=== PATIENT | female | born 1955 | race Caucasian/White ===

== ENCOUNTER 2022-04-01 10:45 | Emergency (ER) | payer MEDICARE, MEDICAID, SELFPAY ==
--- NOTE | 2022-04-01 10:56 | ED.GENADULT ---
HPI - General Adult General Chief complaint: Epistaxis Stated complaint: nose bleed Time Seen by Provider: 04/01/22 10:56 Source: patient and EMS Mode of arrival: EMS Limitations: no limitations History of Present Illness HPI narrative: Patient is a 66 year old female presenting to the emergency department today with a bloody nose. Patient states that she began to have a bloody nose out of nowhere this morning. Patient states that she has been getting them off and on for the last few months. Patient states that she does sleep with an AC unit in her bedroom and no humidifier. Patient states that she only health problems she has is kidney stones for which she follows with Dr. Tavarez. Patient denies any dizziness, lightheadedness, abdominal pain, nausea, vomiting, fever, chills, blurry vision, double vision, loss of vision, chest pain, difficulty breathing, shortness of breath, back pain, night sweats, pain with urination, increased urinary frequency, increased urinary urgency, blood in her urine or stool, syncope or a near syncopal episode, recent trauma or falls, bowel incontinence, bladder incontinence, bowel retention, bladder retention, or any other complaints at this time. Onset (ago): hour(s) Severity: mild Severity scale (1-10): 4 Quality: dull Pain Consistency: constant Relieving factors: none Exacerbating factors: none Associated symptoms: denies other symptoms Treatments prior to arrival: none Related Data Previous Rx's Medication Instructions Recorded amoxicillin 875 mg-potassium 1 tab PO BID 7 days #14 tabs 04/01/22 clavulanate 125 mg tablet lisinopril 5 mg tablet 5 mg PO BID 30 days #60 tabs 04/01/22 Allergies Allergy/AdvReac Type Severity Reaction Status Date / Time No Known Allergies Allergy Verified 04/01/22 10:59 Review of Systems Constitutional: Constitutional: Reports no additional constitutional complaints, Denies chills, Denies fever(s) and Denies night sweats Eyes: Eyes: Reports no additional eye complaints, Denies blurry vision, Denies change in vision, Denies diplopia, Denies eye discharge, Denies loss of vision and Denies eye pain ENT: Denies dizziness and Reports epistaxis Cardiovascular: Cardiovascular: Reports no additional cardiovascular complaints, Denies chest pain, Denies lightheadedness, Denies Loss of Consciousness and Denies dyspnea Respiratory: Respiratory: Reports no additional respiratory complaints and Denies dyspnea Gastrointestinal: Gastrointestinal: Reports no additional gastrointestinal complaints, Denies abdominal pain, Denies melena, Denies hematochezia, Denies change in bowel habits and Denies change in stool character Genitourinary: Genitourinary: Denies hematuria, Denies urinary frequency, Denies dysuria, Denies urinary incontinence, Denies urinary hesitancy and Denies urinary urgency Musculoskeletal: Musculoskeletal: Reports no additional musculoskeletal complaints, Denies numbness and Denies tingling Neurologic: Denies dizziness, Denies loss of vision, Denies numbness and Denies tingling Psychiatric: Psychiatric: Reports no additional psychiatric complaints Endocrine: Endocrine: Reports no additional endocrine complaints Hematologic/Lymphatic: Hematologic/Lymphatic: Reports no additional hematologic/lymphatic complaints Allergic/Immunologic: Allergic/Immunologic: Reports no additional allergic/immunologic complaints PMFSH Past Medical History Attestation statement: The following information was validated with the patient. Source: old records reviewed Social History Social History Alcohol intake: never Patient Tobacco Use Status: Never used Tobacco Use of substances other than those prescribed or required for medical reasons: No Advance Directives: No Advance Directives Information Provided: No Physical Exam ED Vital Signs: Vital Signs - 24 hr 04/01/22 10:57 04/01/22 12:59 04/01/22 15:12 Temperature 97.0 F Pulse Rate 76 74 73 Respiratory Rate 16 18 16 Blood Pressure 175/90 H 187/96 H 180/96 H Pulse Oximetry 96 98 98 Oxygen Delivery Method Room Air Room Air Room Air BMI result Body Mass Index 25.8 Const General: cooperative, no acute distress, alert and awake Nutritional Appearance: well nourished Orientation/consciousness: patient oriented x3 Limitations: no limitations HENMT Head: Yes normal to inspection and Yes atraumatic Ears: hearing grossly normal bilaterally and external ears normal General nose exam: Normal external nose present, no nasal discharge noted and Epistaxis present Face and sinus: Yes normal facial exam, No abrasion and No laceration Mouth: Normal oral and palatal mucosa present, no drooling and no muffled voice Eyes General: appearance normal, both eyes and all related structures Periorbital: periorbital findings normal Eyelids: Yes eyelids normal Conjunctivae: conjunctivae normal Pupils: Equal, round and reactive pupils present EOM: EOMs intact bilaterally Neck Neck: Yes normal visual inspection, Yes full ROM and Yes no lymphadenopathy Chest Chest palpation & inspection: normal inspection of the chest Resp Effort & Inspection: normal respiratory effort and able to speak in complete sentences Auscultation: clear to auscultation bilaterally Cardio Rate: regular rate Rhythm: regular rhythm GI Inspection: Yes normal to inspection Neuro General: patient oriented x3 and moves all extremities Cranial nerves: Yes Equal, round and reactive pupils present Cognition (Neuro): normal cognition Motor exam (neuro): 5/5 motor strength present throughout Sensory Exam: Normal double simultaneous stimulation for sensation Coordination: [id number] test normal Extrem General: Yes normal to inspection, Yes full ROM and Yes capillary refill normal Psych Appearance: grossly normal Mental Status: mental status grossly normal Affect: normal affect Attitude: cooperative Thought process: Normal thought process present Thought content: Normal thought content present Insight: Good insight present (Psych) Medical Decision Making MDM Narrative Medical decision making narrative: Patient is a 66 year old female presenting to the emergency department today with a nose bleed. Patient's physical exam showed a right anterior nostril bleed. I explained my physical exam findings to the patient. I answered all questions asked by the patient. I first attempted to stop the patient's epistaxis with cocaine and TXA soaked cotton balls and flonase however, it did not stop bleeding. I then packed the patient's right nostril with a rhino rocket soaked in TXA and cocaine. That was able to stop the patient's bleeding. I gave the patient strict instructions to have the packing removed in 3 days. Patient's blood pressure was elevated throughout her stay in the department. I gave her 10mg of Lisinopril and strct instructions to follow up with her PCP about her elevated blood pressure. Patient continued to deny any dizziness, headache, blurry vision, double vision, or any other hypertensive complaints. I stressed the importance of the patient taking her medication as prescribed. I stressed the importance of the patient following up with her primary care provider. I stressed the importance of the patient returning to the emergency department immediately if her symptoms were to worsen or if she were to develop any dizziness, shortness of breath, difficulty breathing, chest pain, blurry vision, loss of vision, nausea, vomiting, abdominal pain, fever, chills, back pain, or any other complaints. Patient verbalized agreement and understanding with this treatment plan and discharge. Differential Diagnosis Differential Diagnosis: epistaxis, HTN Medical Records Medical records reviewed: Yes I reviewed the patient's medical records. Discharge Plan Discharge Clinical Impression: Epistaxis, HTN (hypertension) Patient Disposition: Home, Self-Care Instructions: Nosebleed (ED), Hypertension (ED) Additional Instructions: Return to the ED in 3 days to have the packing removed. Follow up with your primary care provider. Return to the emergency department immediately if your symptoms worsen or if you develop any dizziness, shortness of breath, difficulty breathing, chest pain, blurry vision, loss of vision, nausea, vomiting, abdominal pain, fever, chills, back pain, or any other complaints. Prescriptions: New lisinopril 5 mg tablet 5 mg PO BID 30 Days Qty: 60 0RF amoxicillin-pot clavulanate 875-125 mg tablet 1 tab PO BID 7 Days Qty: 14 0RF Referrals: [facility] [Provider Group] (Call to establish and follow up with a primary care provider. If you already have a primary care provider, please follow up with them. ) [facility], [place] [Provider Group] (Call to establish and follow up with a primary care provider. If you already have a primary care provider, please follow up with them. ) [facility] (Call to establish and follow up with a primary care provider. If you already have a primary care provider, please follow up with them. ) [facility] [Physician] - (Call to establish and follow up with a primary care provider. If you already have a primary care provider, please follow up with them. ) Interventions: ED Discharge Assessment Last Done: 04/01/22 15:34 Discharge Date/Time: 04/01/22 15:34 Print Language: [place]arag[place]
[2022-04-01 10:57] VITALS: BP 175/90; PULSE 76; RESP 16; TEMP 36.1; O2SAT 96; BMI 25.8
[2022-04-01] MEDS: Oxymetazoline HCl 0.05 % Nasal 15 ML SPRAY 2 SPRAY NOSTRIL-B (12:03)
[2022-04-01] MEDS: Tranexamic Acid 1,000 MG/10 ML VIAL 500 MG INTRANASAL (12:03)
[2022-04-01] MEDS: Cocaine HCl 4 % 4 ML SOLUTION TOPICAL (12:03)
[2022-04-01 12:59] VITALS: BP 187/96; PULSE 74; RESP 18; O2SAT 98
[2022-04-01] MEDS: lisinopriL 10 MG TABLET PO (13:14)
[2022-04-01] MEDS: LORazepam 1 MG TABLET 2 MG PO (14:12)
[2022-04-01 15:12] VITALS: BP 180/96; PULSE 73; RESP 16; O2SAT 98
== END 2022-04-01 15:34 | disposition home or self-care (01) ==
PROVIDERS: Emergency Provider Emergency Medicine
DX: R04.0 Epistaxis (principal); I10 Essential (primary) hypertension; Z79.899 Other long term (current) drug therapy
CPT/HCPCS: 30901; 99284; C9046

== ENCOUNTER 2022-04-04 12:55 | Inpatient (IN) | payer MEDICARE, MEDICAID, SELFPAY ==
--- NOTE | ~2022-04-04 | CT_ITS ---
EXAMINATION: CT ABDOMEN AND PELVIS WITHOUT CONTRAST CLINICAL INFORMATION: IVONE, history of kidney stone. COMPARISON: Renal ultrasound dated 03/24/2019, CT scan of the abdomen and pelvis dated 09/17/2016. TECHNIQUE: Multidetector volumetric imaging was performed from the superior aspect of the liver through the pubic symphysis. Sagittal and coronal reformatted images were obtained on the technologist's workstation. This CT examination was performed using dose optimization techniques as appropriate, variously including the following: *Automated exposure control *Adjustment of mA and/or kV according to patient size (this includes techniques or standardized protocols for targeted exams where dose is matched to indication/reason for exam; i.e. extremities or head) *Use of iterative reconstruction technique DLP: 769 mGy-cm FINDINGS: LUNG BASES: The visualized lung bases are unremarkable. LIVER, GALLBLADDER, AND BILIARY TREE: Diffuse decreased hepatic attenuation. Gallbladder appears absent. No biliary ductal dilatation. PANCREAS: Unremarkable. SPLEEN: Unremarkable. ADRENAL GLANDS: Unremarkable. KIDNEYS AND URETERS: Right: Severe right pelvocaliectasis with significant cortical thinning. Stenosis is noted at the right ureteropelvic junction. The right ureter is decompressed without abnormality. No nephrolithiasis. Left: Left renal cortical regularity without significant change. Small calculi in the upper pole. No hydroureteronephrosis. A mildly heterogeneous nodule is seen laterally in the upper pole measuring 1.6 cm without significant change (image 54, series 5). BLADDER: Unremarkable. GASTROINTESTINAL TRACT: The stomach and small bowel unremarkable. The colon and rectum are unremarkable. ABDOMINAL WALL: No significant hernia is appreciated. LYMPH NODES: No lymphadenopathy. VASCULAR: Unremarkable. PELVIC VISCERA: Unremarkable. OSSEOUS STRUCTURES: L5-S1 mild degenerative disc disease and bilateral facet arthropathy. No suspicious abnormality. CT/CT abdomen pelvis wo con IMPRESSION: 1. Severe right pelvocaliectasis, likely secondary to significant right ureteral pelvic junction stenosis. No nephrolithiasis. This represents significant worsening from the previous studies. 2. Nonobstructing left intrarenal calculi. Left upper pole renal lesion is similar dimensions to the 2019 ultrasound study and is most consistent with an angiomyolipoma. 3. Hepatic steatosis.
[2022-04-04 12:58] VITALS: BP 189/96; PULSE 84; RESP 16; TEMP 36.6; O2SAT 96; BMI 25.8
--- NOTE | 2022-04-04 13:39 | ED.RECABL ---
HPI - Recheck/Abnormal Lab/Rx General Chief Complaint: General Medical Stated Complaint: Remove packing from nose Time Seen by Provider: 04/04/22 13:30 Source: patient Mode of arrival: ambulatory Limitations: no limitations History of Present Illness HPI narrative: 66-year-old female with a past medical history of kidney stones, who was recently diagnosed with high blood pressure on 04/01/22 currently on lisinopril taking as prescribed who was seen here on 04/01/2022 for epistaxis with nasal packing rhino rocket presenting to the ED for nasal packing rhino rocket removal. She reports that she has not had any bleeding since she was discharged here. She denies any new complaints or concerns at this time. Related Data Previous Rx's Medication Instructions Recorded amoxicillin 875 mg-potassium 1 tab PO BID 7 days #14 tabs 04/01/22 clavulanate 125 mg tablet lisinopril 5 mg tablet 5 mg PO BID 30 days #60 tabs 04/01/22 Allergies Allergy/AdvReac Type Severity Reaction Status Date / Time No Known Allergies Allergy Verified 04/01/22 10:59 Review of Systems Review of Systems: Constitutional : No Fever, No Chills ENT/Mouth : No Ear Pain, No Nasal Congestion, positive resolved nose bleed Eyes: No Eye Pain, No Swelling, No Redness Cardiovascular : No Chest Pain, No SOB Respiratory : No Cough, No Sputum Gastrointestinal : No Nausea, No Vomiting, No Diarrhea Genitourinary : No Dysuria, No Hematuria Musculoskeletal : No joint pain, No Myalgias Skin : No Skin Lesions, No rash Neuro : No Weakness, No Numbness, No headache Psych : No Anxiety/Panic, No Depression Heme/Lymph: No Bleeding,No Lymphadenopathy Endocrine : No Polyuria, No Polydipsia Yes all other systems are reviewed and are negative [facility] Past Medical History Attestation statement: The following information was validated with the patient. Source: old records reviewed and nursing notes reviewed Surgical History H/O lithotripsy Social History Social History Alcohol intake: never Patient Tobacco Use Status: Never used Tobacco Advance Directives: No Advance Directives Information Provided: No Physical Exam Vital Signs: Vital Signs: Last Vital Signs Temp 98.2 F 04/04/22 16:56 Pulse 66 04/04/22 16:56 Resp 16 04/04/22 16:56 BP 194/82 H 04/04/22 16:56 Pulse Ox 96 04/04/22 16:56 O2 Del Method 04/04/22 16:56 BMI result Body Mass Index 25.8 vital signs have been reviewed as normal and appeared to be correct. Blood pressure 189/96. Heart rate normal. Respiration rate normal. Temperature normal. Oxygen saturation normal. Appearance: Alert. Oriented X3. No acute distress. Head: Normal external exam. Normocephalic. Atraumatic. Eyes: PERRLA. EOMI. Conjunctiva and sclera normal. Eyelids normal. ENT: When I examined the patient's rhino rocket I notice dry blood no active bleeding at this time or foreign bodies or lesions or ulcerations noted to the nares at this time. No blood noted to posterior pharynx. Soft and hard palate are within normal limits. Otherwise pharynx is normal. Uvula midline. Moist mucous membranes. No lesions/ulcerations or masses noted on the tongue. Normal voice. No trismus noted. No drooling noted. No muffled voice noted. Neck: Normal inspection. Neck supple. FROM. No adenopathy. Thyroid Normal. No tracheal deviation noted. No crepitus is noted. No meningeal signs. No neck mass noted. No signs of trauma noted. CVS: Normal heart rate and rhythm. Heart sound normal. Pulses normal throughout. No murmurs/rales/gallops. Respiratory: No respiratory distress. Painless inspiration. Breath sounds normal. No wheezes/rales/rhonchi noted. Chest nontender. No crepitus is noted. No signs of trauma noted. No accessory muscle usage noted or decreased air movement noted. No signs of trauma. Abdomen: Soft and nontender. Bowel sounds normal in all 4 quadrants. No distention noted. No organomegaly noted. No visible injury noted. Back: No CVA tenderness. Full range of motion noted. Nontender. Skin: Skin warm and dry. Normal skin color. Normal skin turgor. No rashes/lesions/lacerations noted. Extremities:Extremities exhibit normal range of motion and nontender. Neuro: Oriented X 3. No motor deficit. No sensory deficit. Reflexes normal. Normal steady gait. No focal neuro deficits noted. CN's II-XII intact bilaterally? Vascular: + radial pulses/+ 2 distal pedal pulses/+2 dorsalis pedis b/l. Normal cap refill. No cyanosis noted to upper extremity nails and lower extremity toes nails. Course Course Course Narrative: 14pm - 66-year-old female with a past medical history of kidney stones, who was recently diagnosed with high blood pressure on 04/01/22 currently on lisinopril taking as prescribed who was seen here on 04/01/2022 for epistaxis with nasal packing rhino rocket presenting to the ED for nasal packing rhino rocket removal. She reports that she has not had any bleeding since she was discharged here. I removed the rhino rocket and after approximately 5-10 minutes patient started to bleed profusely bright red blood from the right near. I in unable to localize where she is bleeding from therefore a new rhino rocket was placed. Bleeding is controlled at this time. Due to the amount of bleeding that the patient had will obtain labs to evaluate the patient being possibly anemic and her platelet count and re-evaluate. Reevaluation(s) Reevaluation #1: - labs reviewed and patient's hemoglobin and hematocrit along with platelet count are within normal limits. - sodium is 130. - Carbon dioxide 20. - BUN/creatinine 40/2.03 this is new for the patient. She has not gone to see a primary care provider in over 5-10 years or longer. She has not seen her urologist for kidney stones in over 5 years. The last labs we have in our [facility] system revealed a creatinine of 1.53 and BUN of 31 and this was in 2017. No other labs in our system and patient reports that these are the most recent labs due to she has not seen any providers in many years. - random glucose 522. She denies a history of diabetes. Her average glucose level is 321 and her hemoglobin A1c is 12.8. - AST/ALT 48/54. - acetone level negative. - will obtain a CT scan abdomen pelvis without IV contrast to evaluate the patient's kidneys although patient denies any abdominal pain or flank pain or back pain or urinary symptoms. - therefore at this time patient will receive 2 L of IV fluids Provide a 1000 mg of p.o. metformin and plan to admit for new diagnosis diabetes with IVONE. Patient understands agrees with this plan. Time: 14:40 Reevaluation #2: - CT scan abdomen pelvis without IV contrast revealed severe right pelvocaliectasis, likely secondary to significant right ureteral pelvic junction stenosis. No nephrolithiasis. This represents significant worsening from the previous studies. 2. Nonobstructing left intrarenal calculi. Left upper pole renal lesion is similar dimensions to the 2019 ultrasound study and is most consistent with an angiomyolipoma. 3. Hepatic steatosis. - therefore will consult with Dr. Tavarez regarding this. - Will admit to Dr. Mann's service at this time I just discussed this case with Dr. Mann. And he recommended providing at least 5-10 units of insulin will give 5 units to start with at this time. Time: 17:21 Reevaluation #3: - Dr. Tavarez reported that the imaging with the kidney stones is not the cause of the patient's IVONE. Time: 17:52 MDM - Recheck/Abnormal Lab/Rx Medical Records Attestation: I reviewed the patient's medical records. Lab Data Attestation: I reviewed the patient's lab results. Result diagrams: 04/04/22 14:01 04/04/22 14:01 Labs: Lab Results 04/04/22 04/04/22 04/04/22 Range/Units 14: 14: 14:01 WBC 10.6 (4.8-10.8) X10*3/uL RBC 4.55 (4.20-5.50) X10*6/uL Hgb 13.7 (12.0-16.0) g/dl Hct 40.3 (37.0-47.0) % MCV 88.6 (80.0-98.0) fL MCH 30.1 (27.0-33.0) pg MCHC 34.0 (31.0-35.0) g/dl RDW 13.0 (11.0-16.0) % Plt Count 237 (160-400) X10*3/uL MPV 11.8 (9.4-12.3) fL Immature Gran % (Auto) 0.6 H (0.0-0.4) % Neut % (Auto) 72.7 (45-73) % Lymph % (Auto) 16.2 L (20-40) % [place] % (Auto) 6.7 (2-11) % Eos % (Auto) 3.2 (0-4) % Baso % (Auto) 0.6 (0-2) % Lymph # (Auto) 1.7 (1.2-4.9) X10*3/uL [place] # (Auto) 0.7 (0.1-1.2) X10*3/uL Eos # (Auto) 0.3 (0.0-0.4) X10*3/uL Baso # (Auto) 0.1 (0.0-0.2) X10*3/uL Abs Immat Gran (auto) 0.06 H (0.00-0.03) X10*3/uL Absolute Neuts (auto) 7.8 (2.0-8.3) x10*3/uL Absolute Nucleated RBC 0.000 (0.0-0.012) X10*3/uL Nucleated RBC % (auto) 0.0 (0.0-0.2) /100WBC PT 11.7 (10.0-13.1) SEC INR 1.0 (0.9-1.1) Sodium 130 L (135-145) mmol/L Potassium 5.0 (3.3-5.1) mmol/L Chloride 99 (96-108) mmol/L Carbon Dioxide 20 L (22-29) mmol/L Anion Gap 16 (12-20) BUN 40 H (9-16) mg/dL Creatinine 2.03 H (0.5-1.4) mg/dL Estim Creat Clear Calc 27.8 Estimated GFR 25 Random Glucose 522 H* (60-115) mg/dL Estimat Average Glucose mg/dL Hemoglobin A1c % % Calcium 9.3 (8.4-10.2) mg/dL Magnesium 2.0 (1.6-2.6) mg/dL Total Bilirubin 0.6 (0.0-1.0) mg/dL AST 48 H (5-31) U/L ALT 54 H (0-31) U/L Alkaline Phosphatase 116 (39-117) U/L Lactate Dehydrogenase 188 (122-220) U/L Total Protein 7.5 (6.5-8.0) g/dL Albumin 4.0 (3.5-5.0) g/dL Urine Color Urine Appearance Urine pH (5.0-8.0) Ur Specific [place] (1.005-1.025) Urine Protein (NEG-TRACE) MG/DL Urine Glucose (UA) (NEG) MG/DL Urine Ketones (NEG) MG/DL Urine Blood (NEG) Urine Nitrite (NEG) Ur Leukocyte Esterase (NEG) Urine RBC (0) /HPF Urine WBC (0-4) /HPF Ur Squamous Epith Cells /LPF Urine Bacteria /LPF Acetone, Qual (Negative) COVID-19 (LETTY) (Negative) COVID-19 Clin Com 04/04/22 04/04/22 04/04/22 Range/Units 14:01 14:01 15:36 WBC (4.8-10.8) X10*3/uL RBC (4.20-5.50) X10*6/uL Hgb (12.0-16.0) g/dl Hct (37.0-47.0) % MCV (80.0-98.0) fL MCH (27.0-33.0) pg MCHC (31.0-35.0) g/dl RDW (11.0-16.0) % Plt Count (160-400) X10*3/uL MPV (9.4-12.3) fL Immature Gran % (Auto) (0.0-0.4) % Neut % (Auto) (45-73) % Lymph % (Auto) (20-40) % [place] % (Auto) (2-11) % Eos % (Auto) (0-4) % Baso % (Auto) (0-2) % Lymph # (Auto) (1.2-4.9) X10*3/uL [place] # (Auto) (0.1-1.2) X10*3/uL Eos # (Auto) (0.0-0.4) X10*3/uL Baso # (Auto) (0.0-0.2) X10*3/uL Abs Immat Gran (auto) (0.00-0.03) X10*3/uL Absolute Neuts (auto) (2.0-8.3) x10*3/uL Absolute Nucleated RBC (0.0-0.012) X10*3/uL Nucleated RBC % (auto) (0.0-0.2) /100WBC PT (10.0-13.1) SEC INR (0.9-1.1) Sodium (135-145) mmol/L Potassium (3.3-5.1) mmol/L Chloride (96-108) mmol/L Carbon Dioxide (22-29) mmol/L Anion Gap (12-20) BUN (9-16) mg/dL Creatinine (0.5-1.4) mg/dL Estim Creat Clear Calc Estimated GFR Random Glucose (60-115) mg/dL Estimat Average Glucose 321 mg/dL Hemoglobin A1c % 12.8 % Calcium (8.4-10.2) mg/dL Magnesium (1.6-2.6) mg/dL Total Bilirubin (0.0-1.0) mg/dL AST (5-31) U/L ALT (0-31) U/L Alkaline Phosphatase (39-117) U/L Lactate Dehydrogenase (122-220) U/L Total Protein (6.5-8.0) g/dL Albumin (3.5-5.0) g/dL Urine Color Urine Appearance Urine pH (5.0-8.0) Ur Specific [place] (1.005-1.025) Urine Protein (NEG-TRACE) MG/DL Urine Glucose (UA) (NEG) MG/DL Urine Ketones (NEG) MG/DL Urine Blood (NEG) Urine Nitrite (NEG) Ur Leukocyte Esterase (NEG) Urine RBC (0) /HPF Urine WBC (0-4) /HPF Ur Squamous Epith Cells /LPF Urine Bacteria /LPF Acetone, Qual Negative (Negative) COVID-19 (LETTY) Negative (Negative) COVID-19 Clin Com See Note 04/04/22 Range/Units 15:36 WBC (4.8-10.8) X10*3/uL RBC (4.20-5.50) X10*6/uL Hgb (12.0-16.0) g/dl Hct (37.0-47.0) % MCV (80.0-98.0) fL MCH (27.0-33.0) pg MCHC (31.0-35.0) g/dl RDW (11.0-16.0) % Plt Count (160-400) X10*3/uL MPV (9.4-12.3) fL Immature Gran % (Auto) (0.0-0.4) % Neut % (Auto) (45-73) % Lymph % (Auto) (20-40) % [place] % (Auto) (2-11) % Eos % (Auto) (0-4) % Baso % (Auto) (0-2) % Lymph # (Auto) (1.2-4.9) X10*3/uL [place] # (Auto) (0.1-1.2) X10*3/uL Eos # (Auto) (0.0-0.4) X10*3/uL Baso # (Auto) (0.0-0.2) X10*3/uL Abs Immat Gran (auto) (0.00-0.03) X10*3/uL Absolute Neuts (auto) (2.0-8.3) x10*3/uL Absolute Nucleated RBC (0.0-0.012) X10*3/uL Nucleated RBC % (auto) (0.0-0.2) /100WBC PT (10.0-13.1) SEC INR (0.9-1.1) Sodium (135-145) mmol/L Potassium (3.3-5.1) mmol/L Chloride (96-108) mmol/L Carbon Dioxide (22-29) mmol/L Anion Gap (12-20) BUN (9-16) mg/dL Creatinine (0.5-1.4) mg/dL Estim Creat Clear Calc Estimated GFR Random Glucose (60-115) mg/dL Estimat Average Glucose mg/dL Hemoglobin A1c % % Calcium (8.4-10.2) mg/dL Magnesium (1.6-2.6) mg/dL Total Bilirubin (0.0-1.0) mg/dL AST (5-31) U/L ALT (0-31) U/L Alkaline Phosphatase (39-117) U/L Lactate Dehydrogenase (122-220) U/L Total Protein (6.5-8.0) g/dL Albumin (3.5-5.0) g/dL Urine Color YELLOW Urine Appearance CLEAR Urine pH 6.0 (5.0-8.0) Ur Specific [place] 1.015 (1.005-1.025) Urine Protein NEG (NEG-TRACE) MG/DL Urine Glucose (UA) >=1000 H (NEG) MG/DL Urine Ketones NEG (NEG) MG/DL Urine Blood TRACE (NEG) Urine Nitrite NEG (NEG) Ur Leukocyte Esterase NEG (NEG) Urine RBC 0-2 (0) /HPF Urine WBC 1-4 (0-4) /HPF Ur Squamous Epith Cells TRACE /LPF Urine Bacteria TRACE /LPF Acetone, Qual (Negative) COVID-19 (LETTY) (Negative) COVID-[address] Clin Com Imaging Data CT scan abdomen pelvis without IV contrast: Attestation: I personally reviewed and interpreted this imaging study as follows: Radiologist's impression: FINDINGS: LUNG BASES: The visualized lung bases are unremarkable.? LIVER, GALLBLADDER, AND BILIARY TREE: Diffuse decreased hepatic attenuation. Gallbladder appears absent. No biliary ductal dilatation. PANCREAS: Unremarkable.? SPLEEN: Unremarkable.? ADRENAL GLANDS: Unremarkable.? KIDNEYS AND URETERS: Right: Severe right pelvocaliectasis with significant cortical thinning. Stenosis is noted at the right ureteropelvic junction. The right ureter is decompressed without abnormality. No nephrolithiasis. Left: Left renal cortical regularity without significant change. Small calculi in the upper pole. No hydroureteronephrosis. A mildly heterogeneous nodule is seen laterally in the upper pole measuring 1.6 cm without significant change (image 54, series 5). BLADDER: Unremarkable.? GASTROINTESTINAL TRACT: The stomach and small bowel unremarkable. The colon and rectum are unremarkable. ABDOMINAL WALL: No significant hernia is appreciated.? LYMPH NODES: No lymphadenopathy. VASCULAR: Unremarkable. PELVIC VISCERA: Unremarkable.? OSSEOUS STRUCTURES: L5-S1 mild degenerative disc disease and bilateral facet arthropathy. No suspicious abnormality. CT/CT abdomen pelvis wo con IMPRESSION: 1. Severe right pelvocaliectasis, likely secondary to significant right ureteral pelvic junction stenosis. No nephrolithiasis. This represents significant worsening from the previous studies. 2. Nonobstructing left intrarenal calculi. Left upper pole renal lesion is similar dimensions to the 2019 ultrasound study and is most consistent with an angiomyolipoma. 3. Hepatic steatosis. Critical Care Time Critical Care Time Critical Care Time: Yes Total Critical Care Time: 60 Attestation: I personally attest to this time spent taking care of the patient Discharge Plan Discharge Clinical Impression: Diabetes mellitus, new onset, Encounter for removal of nasal packing, Hypertension, IVONE (acute kidney injury), Kidney stones, Pelvicaliectasis, Epistaxis Patient Disposition: Admitted As Inpatient
[2022-04-04] MEDS: Silver Nitrate Applicator STICK..EA. 2 APPL TOPICAL (13:47)
[2022-04-04] MEDS: Oxymetazoline HCl 0.05 % Nasal 15 ML SPRAY 2 SPRAY NOSTRIL-B (13:47)
[2022-04-04 14:05] LABS: MANUAL DIFF FLAG NO
[2022-04-04 14:07] LABS: Basophils Absolute Auto 0.1 X10*3/uL (0.0-0.2); Basophils Percent Auto 0.6 % (0-2); Eosinophils Absolute Auto 0.3 X10*3/uL (0.0-0.4); Eosinophils Percent Auto 3.2 % (0-4); Hematocrit 40.3 % (37.0-47.0); Hemoglobin 13.7 g/dl (12.0-16.0); Imm Gran Abs Auto 0.06 X10*3/uL (0.00-0.03); Imm Gran Pct Auto 0.6 % (0.0-0.4); Lymphocytes Absolute Auto 1.7 X10*3/uL (1.2-4.9); Lymphocytes Percent Auto 16.2 % (20-40); Mean Corpuscular Hemoglobin 30.1 pg (27.0-33.0); Mean Corpuscular Volume 88.6 fL (80.0-98.0); Mean Platelet Volume 11.8 fL (9.4-12.3); Monocytes Absolute Auto 0.7 X10*3/uL (0.1-1.2); Monocytes Percent Auto 6.7 % (2-11); Neutrophils Absolute Auto 7.8 x10*3/uL (2.0-8.3); Neutrophils Percent Auto 72.7 % (45-73); Platelet Count 237 X10*3/uL (160-400); Red Blood Count 4.55 X10*6/uL (4.20-5.50); White Blood Count 10.6 X10*3/uL (4.8-10.8)
[2022-04-04 14:16] LABS: Prothrombin Time 11.7 SEC (10.0-13.1)
[2022-04-04 14:37] LABS: Alanine Aminotransferase 54 U/L (0-31); Alkaline Phosphatase 116 U/L (39-117); Anion Gap 16 (12-20); Aspartate Amino Transferase 48 U/L (5-31); Bilirubin Total 0.6 mg/dL (0.0-1.0); Blood Urea Nitrogen 40 mg/dL (9-16); Calcium 9.3 mg/dL (8.4-10.2); Carbon Dioxide 20 mmol/L (22-29); Chloride 99 mmol/L (96-108); Creatinine Clr Calc Pharmacy 27.8; Estimated Glomerular Filt Rate 25; Glucose Random 522 mg/dL (60-115); Sodium 130 mmol/L (135-145); Total Protein 7.5 g/dL (6.5-8.0)
[2022-04-04] MEDS: 0.9 % Sodium Chloride 1,000 ML 999 ML IVCONT ×2 (15:01→16:53)
[2022-04-04 15:03] LABS: Acetone, serum QL Negative (Negative)
[2022-04-04 15:05] LABS: Estimated Average Glucose 321 mg/dL; Hemoglobin A1c % 12.8 %
[2022-04-04] MEDS: metFORMIN HCl 1,000 MG TABLET 1000 MG PO (15:43)
[2022-04-04 15:46] LABS: Appearance Urine CLEAR; Color Urine YELLOW; Glucose Urine UA >=1000 MG/DL (NEG); Leukocyte Esterase Urine NEG (NEG); Nitrite Urine NEG (NEG); Specific Gravity - Urine 1.015 (1.005-1.025); UACC Culture Trigger NO; Urine Blood TRACE (NEG); Urine Ketones NEG (NEG); Urine Protein NEG (NEG-TRACE)
[2022-04-04 15:55] LABS: RBC Urine 0-2 /HPF (0)
[2022-04-04 15:56] LABS: Bacteria Urine TRACE /LPF; Squamous Epithelial Cell Urine TRACE /LPF
[2022-04-04 16:01] LABS: COVID-19 Test Negative (Negative)
--- NOTE | 2022-04-04 16:07 | PHA.MEDREC ---
Pharmacy Consult ? Medication Reconciliation Pharmacy has completed the medication reconciliation.
[2022-04-04 16:56] VITALS: BP 194/82; PULSE 66; RESP 16; TEMP 36.8; O2SAT 96
[2022-04-04 17:57] LABS: Lactate Dehydrogenase 188 U/L (122-220)
[2022-04-04] MEDS: Insulin Lispro 100 UNIT/ML 3 ML VIAL SUBCUT (18:27)
[2022-04-04 20:25] LABS: Glucose, Whole Blood 340 mg/dL (60-115)
[2022-04-04 20:47] LABS: Anion Gap 13 (12-20); Blood Urea Nitrogen 35 mg/dL (9-16); Calcium 8.6 mg/dL (8.4-10.2); Carbon Dioxide 23 mmol/L (22-29); Chloride 104 mmol/L (96-108); Creatinine Clr Calc Pharmacy 30.4; Estimated Glomerular Filt Rate 27; Glucose Random 373 mg/dL (60-115); Potassium 4.3 mmol/L (3.3-5.1); Sodium 136 mmol/L (135-145)
[2022-04-04 21:15] VITALS: BP 162/83; PULSE 64; RESP 18; TEMP 36.8; O2SAT 97
--- NOTE | 2022-04-04 22:07 | PM.IMHP ---
History of Present Illness Date of Service: 04/04/22 Chief Complaint: bleeding from nose 66-year-old female with past medical history of kidney stones presented to the hospital today with a chief complaint of bleeding from nose. Patient reported that she had bleeding from her nose the last Friday, came to the ER and had rhino rocket placed; subsequently came to the ER today for removal of the rhino rocket; after it was removed she had another episode of bleeding from the nose. patient had routine blood work done in the ER and noted to have IVONE/ new onset diabetes. Admitted for further management. Patient denies any polyuria polydipsia. Mentioned that she has been hydrating enough. Follows with Dr. Tavarez from Urology for her kidney stones. Denies any fever chills cough. Denies any chest pain or palpitations. Review of all other systems is negative except mentioned above ER course: Per ER team patient had rhino rocket placed; On routine labs noted to have fingerstick glucose in 500s; not in DKA. Also has IVONE. Admitted for further management. [facility] Pertinent family history: denies any significant family history Surgical History H/O lithotripsy Social History Alcohol intake: never Patient Tobacco Use Status: Never used Tobacco Advance Directives: No Advance Directives Information Provided: No Meds Allergies Allergy/AdvReac Type Severity Reaction Status Date / Time No Known Allergies Allergy Verified 04/01/22 10:59 Active Medications: Current Medications Acetaminophen (Acetaminophen 325 Mg Tablet) 650 mg PO Q6H PRN PRN Reason: Pain, Mild (Pain Scale 1-3) Heparin Sodium (Porcine) (Heparin Sodium,Porcine 5,000 Unit/Ml Vial) 5,000 unit SUBCUT Q8H [facility] Pharmacy Consult (Consult Rx Perform Med Rec) 1 each MISCELLANE ONCE PRN PRN Reason: Consult order Senna (Sennosides 8.6 Mg Tablet) 17.2 mg PO BEDTIME PRN PRN Reason: Constipation Sodium Chloride (0.9 % Sodium Chloride Flush 3 Ml Syringe) 3 ml IVFLUSH QSHIFT [facility] Physical Exam Vital Signs and Narrative: Vital Signs: Last Vital Signs Temp 98.2 F 04/04/22 21:15 Pulse 64 04/04/22 21:15 Resp 18 04/04/22 21:15 BP 162/83 H 04/04/22 21:15 Pulse Ox 97 04/04/22 21:15 O2 Del Method 04/04/22 21:15 BMI result Body Mass Index 25.8 Gen: Appears be in no acute distress HEENT: NCAT, Moist mucosa. Rhino rocket in place for the right nostril. Pulmonary: Vesicular breath sounds, fair air entry CVS: Normal S1-S2 Abdomen: BS+, Soft, Nontender Extremities: Warm well perfused Neuro: Alert and awake. Results Labs CBC and Chem 7: 04/04/22 14:01 04/04/22 20:20 Labs: Laboratory Results - last 24 hr 04/04/22 04/04/22 04/04/22 14:01 14:01 14:01 MCV 88.6 MCH 30.1 MCHC 34.0 RDW 13.0 Plt Count 237 MPV 11.8 Immature Gran % (Auto) 0.6 H Neut % (Auto) 72.7 Lymph % (Auto) 16.2 L [place] % (Auto) 6.7 Eos % (Auto) 3.2 Baso % (Auto) 0.6 Lymph # (Auto) 1.7 [place] # (Auto) 0.7 Eos # (Auto) 0.3 Baso # (Auto) 0.1 Abs Immat Gran (auto) 0.06 H Absolute Neuts (auto) 7.8 Absolute Nucleated RBC 0.000 Nucleated RBC % (auto) 0.0 PT 11.7 INR 1.0 Anion Gap 16 Estim Creat Clear Calc 27.8 Estimated GFR 25 POC Glucose Random Glucose 522 H* Estimat Average Glucose Hemoglobin A1c % Calcium 9.3 Magnesium 2.0 Total Bilirubin 0.6 AST 48 H ALT 54 H Alkaline Phosphatase 116 Lactate Dehydrogenase 188 Total Protein 7.5 Albumin 4.0 Urine Color Urine Appearance Urine pH Ur Specific [place] Urine Protein Urine Glucose (UA) Urine Ketones Urine Blood Urine Nitrite Ur Leukocyte Esterase Urine RBC Urine WBC Ur Squamous Epith Cells Urine Bacteria Acetone, Qual COVID-19 (LETTY) COVID-19 Clin Com 04/04/22 04/04/22 04/04/22 14:01 14:01 15:36 MCV MCH MCHC RDW Plt Count MPV Immature Gran % (Auto) Neut % (Auto) Lymph % (Auto) [place] % (Auto) Eos % (Auto) Baso % (Auto) Lymph # (Auto) [place] # (Auto) Eos # (Auto) Baso # (Auto) Abs Immat Gran (auto) Absolute Neuts (auto) Absolute Nucleated RBC Nucleated RBC % (auto) PT INR Anion Gap Estim Creat Clear Calc Estimated GFR POC Glucose Random Glucose Estimat Average Glucose 321 Hemoglobin A1c % 12.8 Calcium Magnesium Total Bilirubin AST ALT Alkaline Phosphatase Lactate Dehydrogenase Total Protein Albumin Urine Color Urine Appearance Urine pH Ur Specific [place] Urine Protein Urine Glucose (UA) Urine Ketones Urine Blood Urine Nitrite Ur Leukocyte Esterase Urine RBC Urine WBC Ur Squamous Epith Cells Urine Bacteria Acetone, Qual Negative COVID-19 (LETTY) Negative COVID-19 Clin Com See Note 04/04/22 04/04/22 04/04/22 15:36 20:20 20:20 MCV MCH MCHC RDW Plt Count MPV Immature Gran % (Auto) Neut % (Auto) Lymph % (Auto) [place] % (Auto) Eos % (Auto) Baso % (Auto) Lymph # (Auto) [place] # (Auto) Eos # (Auto) Baso # (Auto) Abs Immat Gran (auto) Absolute Neuts (auto) Absolute Nucleated RBC Nucleated RBC % (auto) PT INR Anion Gap 13 Estim Creat Clear Calc 30.4 Estimated GFR 27 POC Glucose 340 H Random Glucose 373 H* Estimat Average Glucose Hemoglobin A1c % Calcium 8.6 D Magnesium Total Bilirubin AST ALT Alkaline Phosphatase Lactate Dehydrogenase Total Protein Albumin Urine Color YELLOW Urine Appearance CLEAR Urine pH 6.0 Ur Specific [place] 1.015 Urine Protein NEG Urine Glucose (UA) >=1000 H Urine Ketones NEG Urine Blood TRACE Urine Nitrite NEG Ur Leukocyte Esterase NEG Urine RBC 0-2 Urine WBC 1-4 Ur Squamous Epith Cells TRACE Urine Bacteria TRACE Acetone, Qual COVID-19 (LETTY) COVID-19 Clin Com Imaging Radiologist's Impressions: Impressions Abdomen/Pelvis CT 04/04/22 15:17 IMPRESSION: 1. Severe right pelvocaliectasis, likely secondary to significant right ureteral pelvic junction stenosis. No nephrolithiasis. This represents significant worsening from the previous studies. 2. Nonobstructing left intrarenal calculi. Left upper pole renal lesion is similar dimensions to the 2019 ultrasound study and is most consistent with an angiomyolipoma. 3. Hepatic steatosis. Assessment and Plan (1) Diabetes mellitus, new onset: Status: Acute (2) IVONE (acute kidney injury): Status: Acute (3) Hypertension: Status: Acute Plan 66-year-old female with past medical history of kidney stones presented to the hospital today with a chief complaint of bleeding from nose. Admitted for following Epistaxis: Status post item marked. Currently resolved. H&H stable. ENT follow-up as outpatient. New onset diabetes: Patient fingerstick glucose in for 500s. Not in DKA. Will give the patient on Lantus 10 units plus insulin sliding scale. Hemoglobin A1c is 12.8. IVONE: Likely prerenal. Gentle IV fluids. Avoid nephrotoxins. CT abdomen showed severe right pelvic caliectasis -per Urology not contributing to her IVONE. Nephrology follow-up. Multiple kidney stones/ severe right pelvic caliectasis/nonobstructing left intrarenal calculi: Urology follow-up. Patient denies any pain. Hypertension: Patient blood pressure elevated to 1 60s systolic. Will monitor blood pressure closely. If it persistently elevated will consider antihypertensives. DVT prophylaxis: Subcu heparin Code status: Full code Quality Stroke Does the patient have a stroke diagnosis?: No VTE Prior VTE?: No VTE Risk Level:: Medical - moderate - high VTE Device Contraindication: Treatment Not Indicated VTE Drug Contraindication: N/A - Med Ordered
[2022-04-04] MEDS: Heparin Sodium,Porcine 5,000 UNIT/ML VIAL 5000 UNIT SUBCUT (22:29)
[2022-04-04] MEDS: 0.9 % Sodium Chloride 1,000 ML 75 ML IVCONT (22:32)
[2022-04-05] VITALS (7 sets, daily range): BP systolic 140–180; BP diastolic 73–88; PULSE 64–72; RESP 15–21; TEMP 36.5–36.9; O2SAT 96–98
--- NOTE | 2022-04-05 00:45 | PC.NURSE ---
pt demanding that she get a bed, stating that she has been in the room for hours. pt reassured, was told that we do not know when she will be assigned a bed. pt upset and rude toward this RN. pt given a pillow. resting in bed at this time
--- NOTE | 2022-04-05 03:40 | PC.NURSE ---
pt resting in bed, packing in place to rt nares, bleeding controlled. pt intermittently dabbing nose with tissue- mucus-blood tinged from exisiting blood in nare.
[2022-04-05 06:11] LABS: MANUAL DIFF FLAG NO
[2022-04-05 06:15] LABS: Basophils Absolute Auto 0.1 X10*3/uL (0.0-0.2); Basophils Percent Auto 0.8 % (0-2); Eosinophils Absolute Auto 0.4 X10*3/uL (0.0-0.4); Eosinophils Percent Auto 3.7 % (0-4); Hematocrit 35.1 % (37.0-47.0); Hemoglobin 11.7 g/dl (12.0-16.0); Imm Gran Abs Auto 0.05 X10*3/uL (0.00-0.03); Imm Gran Pct Auto 0.5 % (0.0-0.4); Lymphocytes Absolute Auto 2.1 X10*3/uL (1.2-4.9); Mean Corpuscular HGB Conc 33.3 g/dl (31.0-35.0); Mean Platelet Volume 11.4 fL (9.4-12.3); Monocytes Absolute Auto 0.7 X10*3/uL (0.1-1.2); Monocytes Percent Auto 6.8 % (2-11); Neutrophils Absolute Auto 7.1 x10*3/uL (2.0-8.3); Neutrophils Percent Auto 68.2 % (45-73); Platelet Count 205 X10*3/uL (160-400); Red Cell Distribution Width 13.1 % (11.0-16.0); White Blood Count 10.3 X10*3/uL (4.8-10.8)
[2022-04-05 06:40] LABS: Anion Gap 14 (12-20); Blood Urea Nitrogen 33 mg/dL (9-16); Calcium 8.1 mg/dL (8.4-10.2); Carbon Dioxide 19 mmol/L (22-29); Chloride 106 mmol/L (96-108); Creatinine Clr Calc Pharmacy 35.4; Estimated Glomerular Filt Rate 32; Glucose Random 300 mg/dL (60-115); Potassium 4.6 mmol/L (3.3-5.1); Sodium 134 mmol/L (135-145)
[2022-04-05] MEDS: Heparin Sodium,Porcine 5,000 UNIT/ML VIAL 5000 UNIT SUBCUT ×2 (06:58→14:18)
[2022-04-05 09:02] LABS: Glucose, Whole Blood 285 mg/dL (60-115)
--- NOTE | 2022-04-05 10:04 | PC.NURSE ---
patient a/o x4 . pearll . lungs clear . heart rate regular at 70 beats . patients hypertensive at 194/102. patient asymptomatic , no c/o of headache or chest pain .Dr Rowley contacted . Hospitalist at bedside . plan to start Iv blood pressure medication and to switch to PO once BP stable . lungs clear . skin pink warm and dry . nose bleed controlled in right nare . patient abdomen soft , non distended . positive bowel sound sin all four quadrants . patient c/o of dark stool provider aware . provider associates it with nose bleed no need for guac of stool at this time . patient has no pain at this time . patient is aware of plan of care .
[2022-04-05] MEDS: Insulin Lispro 100 UNIT/ML 3 ML VIAL SUBCUT ×4 (10:46→21:11)
[2022-04-05] MEDS: 0.9 % Sodium Chloride Flush 3 ML SYRINGE IVFLUSH ×2 (10:46→17:25)
[2022-04-05] MEDS: amLODIPine Besylate 10 MG TABLET PO (11:18)
[2022-04-05] MEDS: Amoxicillin/Potassium Clav 875 MG TABLET PO (11:22)
--- NOTE | 2022-04-05 11:28 | MHC.CM.PN ---
Met with patient in regards to discharge planning. Patient lives alone, ambulates independently and had no services prior to coming to the hospital. Patient denies having a PCP. Has plans to obtain a PCP after being discharged from the hospital. No services anticipated to be needed at discharge because patient does not have an established PCP. Patient denies having a HCP. Information provided. Patient declining to complete one at this time. Patient received 2 Pfizer vaccines. IMM explained and signed. Patient's brother will transport patient home when medically stable. Continue to monitor for d/c needs.
--- NOTE | 2022-04-05 12:05 | HO.PM.IMPN ---
Subjective Subjective Date of Service: 04/05/22 Interval History: cc: epistaxis interval history:no further bleeding with rhinorocket in place Cardiovascular Cardiovascular: Reports no additional cardiovascular complaints Respiratory Respiratory: Reports no additional respiratory complaints Physical Exam Vital Signs: Vital Signs: Last Vital Signs Temp 98.2 F 04/05/22 11:16 Pulse 64 04/05/22 11:16 Resp 17 04/05/22 11:16 BP 154/78 H 04/05/22 11:16 Pulse Ox 96 04/05/22 11:16 O2 Del Method 04/05/22 11:16 BMI result Body Mass Index 25.8 General: AO X 3, no acute distress rhinirocket in right nostril Resp: CTA bilateral, no accessory muscles used CVS: S1,S2,RRR GI: soft, non tender, non distended Neuro: motor grossly intact, alert Psych: appropriate affect, appropriate insight Objective Data Active Medications Acetaminophen (Acetaminophen 325 Mg Tablet) 650 mg PO Q6H PRN PRN Reason: Pain, Mild (Pain Scale 1-3) Amlodipine Besylate (Amlodipine Besylate 10 Mg Tablet) 10 mg PO DAILY [facility]; Protocol Last Admin: 04/05/22 11:18 Dose: 10 mg Documented By: SEDA Amoxicillin/Clavulanate Potassium (Amoxicillin/Potassium Clav 875 Mg Tablet) 875 mg PO Q12H [facility] Last Admin: 04/05/22 11:22 Dose: 875 mg Documented By: SEDA Dextrose (Dextrose 50 % 25 Gm/50 Ml Syringe) 25 gm IVPUSH Q15M PRN; Protocol PRN Reason: per Hypoglycemia Standing Ord. Glucose (Glucose Gel 15 Gm Gel..Gram.) 15 gm PO Q15M PRN; Protocol PRN Reason: per Hypoglycemia Standing Ord. Heparin Sodium (Porcine) (Heparin Sodium,Porcine 5,000 Unit/Ml Vial) 5,000 unit SUBCUT Q8H [facility] Last Admin: 04/05/22 06:58 Dose: 5,000 unit Documented By: CLAUDE Sodium Chloride (Ns) 1,000 mls @ 75 mls/hr IVCONT .[id number] [facility] Last Admin: 04/04/22 22:32 Dose: 75 mls/hr Documented By: CLAUDE Insulin Glargine (Insulin Glargine,Hum.Rec.Anlog 100 Unit/Ml 10 Ml Vial) 10 unit SUBCUT BEDTIME [facility] Insulin Human Lispro (Insulin Lispro 100 Unit/Ml 3 Ml Vial) 0 unit SUBCUT QIDACHS [facility]; Protocol Last Admin: 04/05/22 10:46 Dose: 6 unit Documented By: JUVENCIO Melatonin (Melatonin 3 Mg Tablet) 6 mg PO BEDTIME PRN PRN Reason: Insomnia Pharmacy Consult (Consult Rx Perform Med Rec) 1 each MISCELLANE ONCE PRN PRN Reason: Consult order Senna (Sennosides 8.6 Mg Tablet) 17.2 mg PO BEDTIME PRN PRN Reason: Constipation Sodium Chloride (0.9 % Sodium Chloride Flush 3 Ml Syringe) 3 ml IVFLUSH QSHIFT [facility] Last Admin: 04/05/22 10:46 Dose: 3 ml Documented By: JUVENCIO Labs CBC & Chem 7: 04/05/22 06:04 04/05/22 06:04 Labs: Laboratory Results - last 24 hr 04/04/22 04/04/22 04/04/22 14:01 14:01 14:01 MCV 88.6 MCH 30.1 MCHC 34.0 RDW 13.0 Plt Count 237 MPV 11.8 Immature Gran % (Auto) 0.6 H Neut % (Auto) 72.7 Lymph % (Auto) 16.2 L Jones % (Auto) 6.7 Eos % (Auto) 3.2 Baso % (Auto) 0.6 Lymph # (Auto) 1.7 Jones # (Auto) 0.7 Eos # (Auto) 0.3 Baso # (Auto) 0.1 Abs Immat Gran (auto) 0.06 H Absolute Neuts (auto) 7.8 Absolute Nucleated RBC 0.000 Nucleated RBC % (auto) 0.0 PT 11.7 INR 1.0 Anion Gap 16 Estim Creat Clear Calc 27.8 Estimated GFR 25 POC Glucose Random Glucose 522 H* Estimat Average Glucose Hemoglobin A1c % Calcium 9.3 Magnesium 2.0 Total Bilirubin 0.6 AST 48 H ALT 54 H Alkaline Phosphatase 116 Lactate Dehydrogenase 188 Total Protein 7.5 Albumin 4.0 Urine Color Urine Appearance Urine pH Ur Specific Rector Urine Protein Urine Glucose (UA) Urine Ketones Urine Blood Urine Nitrite Ur Leukocyte Esterase Urine RBC Urine WBC Ur Squamous Epith Cells Urine Bacteria Acetone, Qual COVID-19 (LETTY) COVID-19 Clin Com 04/04/22 04/04/22 04/04/22 14:01 14:01 15:36 MCV MCH MCHC RDW Plt Count MPV Immature Gran % (Auto) Neut % (Auto) Lymph % (Auto) Jones % (Auto) Eos % (Auto) Baso % (Auto) Lymph # (Auto) Jones # (Auto) Eos # (Auto) Baso # (Auto) Abs Immat Gran (auto) Absolute Neuts (auto) Absolute Nucleated RBC Nucleated RBC % (auto) PT INR Anion Gap Estim Creat Clear Calc Estimated GFR POC Glucose Random Glucose Estimat Average Glucose 321 Hemoglobin A1c % 12.8 Calcium Magnesium Total Bilirubin AST ALT Alkaline Phosphatase Lactate Dehydrogenase Total Protein Albumin Urine Color Urine Appearance Urine pH Ur Specific Rector Urine Protein Urine Glucose (UA) Urine Ketones Urine Blood Urine Nitrite Ur Leukocyte Esterase Urine RBC Urine WBC Ur Squamous Epith Cells Urine Bacteria Acetone, Qual Negative COVID-19 (LETTY) Negative COVID-19 Clin Com See Note 04/04/22 04/04/22 04/04/22 15:36 20:20 20:20 MCV MCH MCHC RDW Plt Count MPV Immature Gran % (Auto) Neut % (Auto) Lymph % (Auto) Jones % (Auto) Eos % (Auto) Baso % (Auto) Lymph # (Auto) Jones # (Auto) Eos # (Auto) Baso # (Auto) Abs Immat Gran (auto) Absolute Neuts (auto) Absolute Nucleated RBC Nucleated RBC % (auto) PT INR Anion Gap 13 Estim Creat Clear Calc 30.4 Estimated GFR 27 POC Glucose 340 H Random Glucose 373 H* Estimat Average Glucose Hemoglobin A1c % Calcium 8.6 D Magnesium Total Bilirubin AST ALT Alkaline Phosphatase Lactate Dehydrogenase Total Protein Albumin Urine Color YELLOW Urine Appearance CLEAR Urine pH 6.0 Ur Specific Rector 1.015 Urine Protein NEG Urine Glucose (UA) >=1000 H Urine Ketones NEG Urine Blood TRACE Urine Nitrite NEG Ur Leukocyte Esterase NEG Urine RBC 0-2 Urine WBC 1-4 Ur Squamous Epith Cells TRACE Urine Bacteria TRACE Acetone, Qual COVID-19 (LETTY) COVID-19 Clin Com 04/05/22 04/05/22 04/05/22 06:04 06:04 08:46 MCV 90.0 MCH 30.0 MCHC 33.3 RDW 13.1 Plt Count 205 MPV 11.4 Immature Gran % (Auto) 0.5 H Neut % (Auto) 68.2 Lymph % (Auto) 20.0 Jones % (Auto) 6.8 Eos % (Auto) 3.7 Baso % (Auto) 0.8 Lymph # (Auto) 2.1 Jones # (Auto) 0.7 Eos # (Auto) 0.4 Baso # (Auto) 0.1 Abs Immat Gran (auto) 0.05 H Absolute Neuts (auto) 7.1 Absolute Nucleated RBC 0.000 Nucleated RBC % (auto) 0.0 PT INR Anion Gap 14 Estim Creat Clear Calc 35.4 Estimated GFR 32 POC Glucose 285 H Random Glucose 300 H Estimat Average Glucose Hemoglobin A1c % Calcium 8.1 L Magnesium Total Bilirubin AST ALT Alkaline Phosphatase Lactate Dehydrogenase Total Protein Albumin Urine Color Urine Appearance Urine pH Ur Specific Rector Urine Protein Urine Glucose (UA) Urine Ketones Urine Blood Urine Nitrite Ur Leukocyte Esterase Urine RBC Urine WBC Ur Squamous Epith Cells Urine Bacteria Acetone, Qual COVID-19 (LETTY) COVID-19 Clin Com Assessment and Plan (1) Diabetes mellitus, new onset: Status: Acute Plan 66F presented with epistaxis, was found to have new diagnosis of DM with hyperglycemia, IVONE, hypertension. epistaxis with acute blood loss anemia hgb dropped from 13.7 to 11.7 continue to monitor with rhinorocket tele, prophylactic augmentin hypertension - uncontrolled, new diagnosis started amlodipine 10mg daily po DM with hyperglcyemia - new diagnosis basal bolus inuslin, monitor poc IVONE improving with ivf, monitor steatohepatitis likely NIELSEN, outpatient follow up dvt prophylaxis - hep sq full code reason for continued hospitalization: needing ivf for ivone, close poc montioring for hyperglycemia, uncontrolled hypertension Quality Stroke Does the patient have a stroke diagnosis?: No VTE Prior VTE?: No VTE Risk Level:: Medical - moderate - high VTE Device Contraindication: Treatment Not Indicated VTE Drug Contraindication: N/A - Med Ordered
[2022-04-05 12:44] LABS: Glucose, Whole Blood 335 mg/dL (60-115)
--- NOTE | 2022-04-05 13:16 | PC.NURSE ---
RN to RN given to Griselda on .
[2022-04-05] MEDS: 0.9 % Sodium Chloride 1,000 ML 75 ML IVCONT (13:24)
[2022-04-05 16:26] LABS: Glucose, Whole Blood 190 mg/dL (60-115)
[2022-04-05 20:53] LABS: Glucose, Whole Blood 268 mg/dL (60-115)
[2022-04-05] MEDS: Insulin Glargine,Hum.rec.anlog 100 UNIT/ML 10 ML VIAL 10 UNIT SUBCUT (21:11)
[2022-04-06] VITALS (8 sets, daily range): BP systolic 148–182; BP diastolic 60–90; PULSE 60–74; RESP 16–20; TEMP 36–36.9; O2SAT 95–98
[2022-04-06] MEDS: Melatonin 3 MG TABLET 6 MG PO ×2 (00:17→20:44)
[2022-04-06] MEDS: Amoxicillin/Potassium Clav 875 MG TABLET PO ×3 (00:17→23:18)
[2022-04-06] MEDS: 0.9 % Sodium Chloride 1,000 ML 75 ML IVCONT ×2 (02:04→15:45)
--- NOTE | 2022-04-06 06:18 | PC.NURSE ---
Note sent to hospitalist to inquire about patient on heparin sc with admission nosebleed (see report), order discontinued and compression stockings ordered. Explained new order to patient and sequential stocking applied to bilat lower legs this am at 0615
[2022-04-06 06:26] LABS: Hemoglobin 12.5 g/dl (12.0-16.0); Mean Corpuscular HGB Conc 33.8 g/dl (31.0-35.0); Mean Corpuscular Hemoglobin 30.4 pg (27.0-33.0); Mean Platelet Volume 11.9 fL (9.4-12.3); Platelet Count 238 X10*3/uL (160-400); Red Blood Count 4.11 X10*6/uL (4.20-5.50); Red Cell Distribution Width 13.2 % (11.0-16.0); White Blood Count 10.3 X10*3/uL (4.8-10.8)
[2022-04-06 06:53] LABS: Anion Gap 14 (12-20); Blood Urea Nitrogen 30 mg/dL (9-16); Calcium 8.5 mg/dL (8.4-10.2); Carbon Dioxide 20 mmol/L (22-29); Chloride 105 mmol/L (96-108); Creatinine Clr Calc Pharmacy 35.7; Estimated Glomerular Filt Rate 33; Glucose Fasting 295 mg/dL (60-99); Potassium 4.5 mmol/L (3.3-5.1); Sodium 134 mmol/L (135-145)
[2022-04-06 07:57] LABS: Glucose, Whole Blood 274 mg/dL (60-115)
[2022-04-06] MEDS: Insulin Lispro 100 UNIT/ML 3 ML VIAL SUBCUT ×8 (08:20→20:42)
[2022-04-06] MEDS: amLODIPine Besylate 10 MG TABLET PO (08:21)
--- NOTE | 2022-04-06 10:11 | P.PNIM_ITS ---
Subjective Subjective Date of Service: 04/06/22 Interval History: cc: epistaxis interval history:some bleeding with rhinorocket in place Cardiovascular Cardiovascular: Reports no additional cardiovascular complaints Respiratory Respiratory: Reports no additional respiratory complaints Physical Exam Vital Signs: Vital Signs: Last Vital Signs Temp 97.4 F 04/06/22 07:12 Pulse 60 04/06/22 07:12 Resp 19 04/06/22 07:12 BP 150/64 H 04/06/22 07:12 Pulse Ox 97 04/06/22 07:12 O2 Del Method 04/06/22 07:12 BMI result Body Mass Index 25.8 General: AO X 3, no acute distress rhinirocket in right nostril Resp: CTA bilateral, no accessory muscles used CVS: S1,S2,RRR GI: soft, non tender, non distended Neuro: motor grossly intact, alert Psych: appropriate affect, appropriate insight Objective Data Active Medications Acetaminophen (Acetaminophen 325 Mg Tablet) 650 mg PO Q6H PRN PRN Reason: Pain, Mild (Pain Scale 1-3) Amlodipine Besylate (Amlodipine Besylate 10 Mg Tablet) 10 mg PO DAILY [facility]; Protocol Last Admin: 04/06/22 08:21 Dose: 10 mg Documented By: HADLEY Amoxicillin/Clavulanate Potassium (Amoxicillin/Potassium Clav 875 Mg Tablet) 875 mg PO Q12H [facility] Last Admin: 04/06/22 00:17 Dose: 875 mg Documented By: CHRIS Dextrose (Dextrose 50 % 25 Gm/50 Ml Syringe) 25 gm IVPUSH Q15M PRN; Protocol PRN Reason: per Hypoglycemia Standing Ord. Glucose (Glucose Gel 15 Gm Gel..Gram.) 15 gm PO Q15M PRN; Protocol PRN Reason: per Hypoglycemia Standing Ord. Sodium Chloride (Ns) 1,000 mls @ 75 mls/hr IVCONT .[id number] [facility] Last Admin: 04/06/22 02:04 Dose: 75 mls/hr Documented By: CHRIS Insulin Glargine (Insulin Glargine,Hum.Rec.Anlog 100 Unit/Ml 10 Ml Vial) 10 unit SUBCUT BEDTIME [facility] Last Admin: 04/05/22 21:11 Dose: 10 unit Documented By: RADHA Insulin Human Lispro (Insulin Lispro 100 Unit/Ml 3 Ml Vial) 0 unit SUBCUT QIDACHS [facility]; Protocol Last Admin: 04/06/22 08:20 Dose: 6 unit Documented By: HADLEY Insulin Human Lispro (Insulin Lispro 100 Unit/Ml 3 Ml Vial) 5 unit SUBCUT [facility] Last Admin: 04/06/22 08:21 Dose: 5 unit Documented By: HADLEY Melatonin (Melatonin 3 Mg Tablet) 6 mg PO BEDTIME PRN PRN Reason: Insomnia Last Admin: 04/06/22 00:17 Dose: 6 mg Documented By: CHRIS Pharmacy Consult (Consult Rx Perform Med Rec) 1 each MISCELLANE ONCE PRN PRN Reason: Consult order Senna (Sennosides 8.6 Mg Tablet) 17.2 mg PO BEDTIME PRN PRN Reason: Constipation Sodium Chloride (0.9 % Sodium Chloride Flush 3 Ml Syringe) 3 ml IVFLUSH [facility] Last Admin: 04/06/22 08:19 Dose: Not Given Documented By: HADLEY Non-Admin Reason: IV Running Labs CBC & Chem 7: 04/06/22 06:01 04/06/22 06:01 Labs: Laboratory Results - last 24 hr 04/05/22 04/05/22 04/05/22 12:36 15:59 20:45 MCV MCH MCHC RDW Plt Count MPV Absolute Nucleated RBC Nucleated RBC % (auto) Anion Gap Estim Creat Clear Calc Estimated GFR POC Glucose 335 H 190 H 268 H Fasting Glucose Calcium 04/06/22 04/06/22 04/06/22 06:01 06:01 07:15 MCV 90.0 MCH 30.4 MCHC 33.8 RDW 13.2 Plt Count 238 MPV 11.9 Absolute Nucleated RBC 0.000 Nucleated RBC % (auto) 0.0 Anion Gap 14 Estim Creat Clear Calc 35.7 Estimated GFR 33 POC Glucose 274 H Fasting Glucose 295 H Calcium 8.5 Assessment and Plan (1) Diabetes mellitus, new onset: Status: Acute Plan 66F presented with epistaxis, was found to have new diagnosis of DM with hyperglycemia, IVONE, hypertension. epistaxis with acute blood loss anemia hgb dropped from 13.7 to 11.7, now stable at 12.5 continue to monitor with rhinorocket prophylactic augmentin hypertension - uncontrolled, new diagnosis started amlodipine 10mg daily po DM with hyperglcyemia - new diagnosis basal bolus insulin, monitor poc IVONE improving with ivf, monitor steatohepatitis likely NIELSEN, outpatient follow up dvt prophylaxis - hep sq full code reason for continued hospitalization: needing ivf for ivone, close poc montioring for hyperglycemia, still with some bleeding Quality Stroke Does the patient have a stroke diagnosis?: No VTE Prior VTE?: No VTE Risk Level:: Medical - moderate - high VTE Device Contraindication: Treatment Not Indicated VTE Drug Contraindication: N/A - Med Ordered
[2022-04-06 11:29] LABS: Glucose, Whole Blood 260 mg/dL (60-115)
[2022-04-06 16:48] LABS: Glucose, Whole Blood 184 mg/dL (60-115)
[2022-04-06 20:26] LABS: Glucose, Whole Blood 255 mg/dL (60-115)
[2022-04-06] MEDS: Insulin Glargine,Hum.rec.anlog 100 UNIT/ML 10 ML VIAL 10 UNIT SUBCUT (20:42)
[2022-04-07 03:22] VITALS: BP 159/74; PULSE 62; RESP 16; TEMP 36.8; O2SAT 97
[2022-04-07 06:41] LABS: Anion Gap 11 (12-20); Blood Urea Nitrogen 24 mg/dL (9-16); Calcium 8.5 mg/dL (8.4-10.2); Carbon Dioxide 20 mmol/L (22-29); Chloride 107 mmol/L (96-108); Creatinine Clr Calc Pharmacy 41.5; Estimated Glomerular Filt Rate 39; Glucose Fasting 186 mg/dL (60-99); Potassium 4.4 mmol/L (3.3-5.1); Sodium 134 mmol/L (135-145)
[2022-04-07 06:43] LABS: Hematocrit 34.7 % (37.0-47.0); Hemoglobin 11.7 g/dl (12.0-16.0); Mean Corpuscular HGB Conc 33.7 g/dl (31.0-35.0); Mean Corpuscular Hemoglobin 30.1 pg (27.0-33.0); Mean Corpuscular Volume 89.2 fL (80.0-98.0); Mean Platelet Volume 11.8 fL (9.4-12.3); Platelet Count 207 X10*3/uL (160-400); Red Blood Count 3.89 X10*6/uL (4.20-5.50); Red Cell Distribution Width 13.2 % (11.0-16.0); White Blood Count 9.2 X10*3/uL (4.8-10.8)
[2022-04-07 07:17] VITALS: PULSE 73; RESP 16; TEMP 36.8; O2SAT 98
[2022-04-07] MEDS: Insulin Lispro 100 UNIT/ML 3 ML VIAL SUBCUT ×4 (07:52→12:14)
[2022-04-07] MEDS: amLODIPine Besylate 10 MG TABLET PO (07:52)
[2022-04-07 07:53] LABS: Glucose, Whole Blood 184 mg/dL (60-115)
[2022-04-07] MEDS: 0.9 % Sodium Chloride Flush 3 ML SYRINGE IVFLUSH (07:56)
[2022-04-07] MEDS: lisinopriL 5 MG TABLET PO (10:44)
[2022-04-07] MEDS: Amoxicillin/Potassium Clav 875 MG TABLET PO (10:44)
[2022-04-07 11:53] VITALS: BP 162/91; PULSE 74; RESP 16; TEMP 36.4; O2SAT 96
[2022-04-07 12:11] LABS: Glucose, Whole Blood 204 mg/dL (60-115)
--- NOTE | 2022-04-07 12:35 | PM.DS ---
DS: Providers Provider Date of Service: 04/07/22 Date of admission: 04/04/22 22:04 Primary care physician: None Physician Consults: 04/04/22 22:06 Consult to Nephrology Routine Consulting Provider: Antonio Herman Reason for consultation: IVONE Consult to Urology Routine Consulting Provider: Khalif Tavarez Reason for consultation: kidney stones DS: Diagnosis Discharge Diagnosis (1) Diabetes mellitus, new onset: Status: Acute DS: Summary Hospital Course Hospital Course: from initial hpi: Chief Complaint:? bleeding from nose ?66-year-old female with? past medical history of kidney stones presented to the hospital today with a chief complaint of bleeding from nose.? Patient reported that she had bleeding from her nose the last Friday, came to the ER and had rhino rocket placed; subsequently came to the ER today for removal of the rhino rocket; after it was removed she had another episode of bleeding from the nose.? ?patient had routine blood work done in the ER and noted to have IVONE/ new onset diabetes.? Admitted for further management.? Patient denies any polyuria polydipsia.? Mentioned that she has been hydrating enough.? Follows with Dr. Tavarez from Urology for her kidney stones.? Denies any fever chills cough.? Denies any chest pain or palpitations.? Review of all other systems is negative except mentioned above ER course: Per ER team patient had rhino rocket placed; ? On routine labs noted to have fingerstick glucose in 500s; not in DKA.? Also has IVONE.? Admitted for further management. hospital course: Patient was admitted for epistaxis complicated by mild acute blood loss anemia. Rhino rocket was placed for about 72 hours and then was removed with no further bleeding. Hemoglobin had dropped from 13.7-11.7 but then remained stable. on admission patient also noted to have acute kidney injury, this improved with IV fluids. Patient noted to have hypertension which was uncontrolled. She was started on amlodipine 10 mg and lisinopril 5 mg daily. Patient noted to have a new diagnosis of diabetes with hyperglycemia. She was given basal bolus insulin with sugars improving. On discharge she will start metformin and Januvia. Patient also noted to have fatty liver on imaging likely due to NIELSEN. patient is feeling better will be discharged home. She is instructed to follow up this week with primary care provider. Time Spent with Patient Time attestation: Total time spent providing and/or coordinating discharge services: Discharge coordination time: Greater than 30 minutes Quality: Safe Use of Opioids Does Pt have an Active Cancer Diagnosis on the Problem List?: No Quality: Stroke Does the patient have a stroke diagnosis?: No Physical Exam Vital Signs: Vital Signs: Last Vital Signs Temp 97.6 F 04/07/22 11:53 Pulse 74 04/07/22 11:53 Resp 16 04/07/22 11:53 BP 162/91 H 04/07/22 11:53 Pulse Ox 96 04/07/22 11:53 O2 Del Method 04/07/22 11:53 BMI result Body Mass Index 25.8 General: AO X 3, no acute distress Resp: CTA bilateral, no accessory muscles used CVS: S1,S2,RRR GI: soft, non tender, non distended Neuro: motor grossly intact, alert Psych: appropriate affect, appropriate insight DS: Data Data Completed and Pending Labs on day of discharge: Laboratory Results - last 24 hr 04/06/22 04/06/22 04/07/22 16:09 20:00 06:01 WBC 9.2 RBC 3.89 L Hgb 11.7 L Hct 34.7 L MCV 89.2 MCH 30.1 MCHC 33.7 RDW 13.2 Plt Count 207 MPV 11.8 Absolute Nucleated RBC 0.000 Nucleated RBC % (auto) 0.0 Sodium Potassium Chloride Carbon Dioxide Anion Gap BUN Creatinine Estim Creat Clear Calc Estimated GFR POC Glucose 184 H 255 H Fasting Glucose Calcium 04/07/22 04/07/22 04/07/22 06:01 07:20 11:59 WBC RBC Hgb Hct MCV MCH MCHC RDW Plt Count MPV Absolute Nucleated RBC Nucleated RBC % (auto) Sodium 134 L Potassium 4.4 Chloride 107 Carbon Dioxide 20 L Anion Gap 11 L BUN 24 H Creatinine 1.36 Estim Creat Clear Calc 41.5 Estimated GFR 39 POC Glucose 184 H 204 H Fasting Glucose 186 H Calcium 8.5 Discharge Plan Discharge Patient Disposition: Home, Self-Care Discharge Diagnosis: new diabetes, ivone, hypertension Referrals: Wang Leiva [Physician] - 1 week (Call to make a follow-up appointment within the next few weeks) Physician,Radha [Primary Care Provider] - 1 Week Discharge Medications: New amlodipine 10 mg Tablet 10 mg PO DAILY Qty: 30 0RF Protocol: Hold for SBP< HOLD for SBP < : 90 metformin 1,000 mg tablet 1,000 mg PO BIDWMEAL Qty: 60 0RF Januvia 100 mg tablet 100 mg PO DAILY Qty: 30 0RF (DME) blood-glucose meter [FreeStyle Lite Meter] Kit See Rx Instructions .Route Qty: 1 0RF Rx Instructions: As directed (DME) FreeStyle Lite Strips Strip See Rx Instructions .Route Qty: 100 0RF Rx Instructions: As directed (DME) lancets [Lancets,Thin] Misc See Rx Instructions .Route Qty: 200 0RF Rx Instructions: As directed alcohol swabs [CareTouch Alcohol Prep Pad] Pads, Medicated 1 pad topical BID Qty: 200 0RF Continued lisinopril 5 mg tablet 5 mg PO BID 30 Days Qty: 60 0RF Discontinued amoxicillin-pot clavulanate 875-125 mg tablet 1 tab PO BID 7 Days Qty: 14 0RF Discharge Orders: Discharge Order (Routine); Ordered 04/07/22 Ordered By: Anton Oliva Diet: Diabetic diet Activity on Discharge: As tolerated Stand Alone Forms: Patient Portal Discharge page Care Plan Goals: manage new DM, hypetension Health Concerns: DM, hypertension Plan of Treatment: start metformin, januvia, amlodipnie, lisinopril, monitor sugars and blood pressure, make an appointment with new primary care doctor MEGAN (this week) Assessment: see above Patient Instructions: Nosebleed (ED)
--- NOTE | 2022-04-07 13:45 | MHC.CM.PN ---
PT DISCHARGED HOME TODAY WITH NO SERVICES PT UNABLE TO HAVE [facility] SERVICES DUE TO LACK OF PCP PT TO ARRANGE TRANSPORT
--- NOTE | 2022-04-07 13:49 | P.CNUR_ITS ---
History of Present Illness Consult details Consult date: 04/07/22 Narrative: Consulting complaint - right hydronephrosis Marian is a pleasant 66-year-old female. Admitted to hospital with new onset diabetes. HbA1c 12.8. Creatinine 2.1, blood sugar 265. Has responded well to rehydration in hospital and creatinine now down to 1.3 Imaging shows hydronephrosis on right side with nonfunctional kidney This is longstanding Has been present for a number of years with prior imaging Prior issues for stones No acute urologic issue Review of Systems Constitutional: Constitutional: Denies chills and Denies fever(s) Cardiovascular: Cardiovascular: Reports no additional cardiovascular complaints and Denies syncope Respiratory: Respiratory: Denies cough Gastrointestinal: Gastrointestinal: Denies abdominal pain and Denies heartburn Genitourinary: Genitourinary: Reports as per HPI and Denies change in libido Neurologic: Denies syncope Psychiatric: Psychiatric: Denies change in libido Endocrine: Endocrine: Denies change in libido [facility] Surgical History Surgical History H/O lithotripsy Social History Social History Household Members Other:: 1 Housing: Apartment Do you presently have visiting nurse or other home services: No Alcohol intake: never Patient Tobacco Use Status: Never used Tobacco service: No Current occupational status: retired [employer] Allergies Allergy/AdvReac Type Severity Reaction Status Date / Time No Known Allergies Allergy Verified 04/01/22 10:59 Active Medications: Current Medications Acetaminophen (Acetaminophen 325 Mg Tablet) 650 mg PO Q6H PRN PRN Reason: Pain, Mild (Pain Scale 1-3) Amlodipine Besylate (Amlodipine Besylate 10 Mg Tablet) 10 mg PO DAILY RICHARD; Protocol Last Admin: 04/07/22 07:52 Dose: 10 mg Amoxicillin/Clavulanate Potassium (Amoxicillin/Potassium Clav 875 Mg Tablet) 875 mg PO Q12H RICHARD Last Admin: 04/07/22 10:44 Dose: 875 mg Dextrose (Dextrose 50 % 25 Gm/50 Ml Syringe) 25 gm IVPUSH Q15M PRN; Protocol PRN Reason: per Hypoglycemia Standing Ord. Glucose (Glucose Gel 15 Gm Gel..Gram.) 15 gm PO Q15M PRN; Protocol PRN Reason: per Hypoglycemia Standing Ord. Insulin Glargine (Insulin Glargine,Hum.Rec.Anlog 100 Unit/Ml 10 Ml Vial) 10 unit SUBCUT BEDTIME [facility] Last Admin: 04/06/22 20:42 Dose: 10 unit Insulin Human Lispro (Insulin Lispro 100 Unit/Ml 3 Ml Vial) 0 unit SUBCUT QIDACHS [facility]; Protocol Last Admin: 04/07/22 12:14 Dose: 4 unit Insulin Human Lispro (Insulin Lispro 100 Unit/Ml 3 Ml Vial) 5 unit SUBCUT QIDACHS [facility] Last Admin: 04/07/22 12:14 Dose: 5 unit Lisinopril (Lisinopril 5 Mg Tablet) 5 mg PO DAILY [facility]; Protocol Last Admin: 04/07/22 10:44 Dose: 5 mg Melatonin (Melatonin 3 Mg Tablet) 6 mg PO BEDTIME PRN PRN Reason: Insomnia Last Admin: 04/06/22 20:44 Dose: 6 mg Pharmacy Consult (Consult Rx Perform Med Rec) 1 each MISCELLANE ONCE PRN PRN Reason: Consult order Senna (Sennosides 8.6 Mg Tablet) 17.2 mg PO BEDTIME PRN PRN Reason: Constipation Sodium Chloride (0.9 % Sodium Chloride Flush 3 Ml Syringe) 3 ml IVFLUSH QSHIFT [facility] Last Admin: 04/07/22 07:56 Dose: 3 ml Physical Exam Vital Signs: Vital Signs: Last Vital Signs Temp 97.6 F 04/07/22 11:53 Pulse 74 04/07/22 11:53 Resp 16 04/07/22 11:53 BP 162/91 H 04/07/22 11:53 Pulse Ox 96 04/07/22 11:53 O2 Del Method 04/07/22 11:53 BMI result Body Mass Index 25.8 Const: General: cooperative, healthy appearing, comfortable and no acute dis tress Orientation/consciousness: patient oriented x3 HEENT: Face and sinus: Yes normal facial exam Mouth: moist mucous membranes Neck: Neck: Yes normal visual inspection, Yes full ROM and Yes trachea midline Chest: Chest palpation & inspection: normal inspection of the chest Resp: Effort & Inspection: normal respiratory effort, able to speak in complete sentences and no respiratory distress GI: Inspection: Yes normal to inspection Back/Spine/Pelvis: Cervical Spine: normal cervical lordosis Thoracic/Lumbar Spine: thoracic and lumbar spine normal to inspection Skin: General skin exam: no rashes or lesions noted Neuro: General: patient oriented x3, gait normal, tone normal and moves all extremities Extrem: General: Yes normal to inspection and Yes capillary refill normal Results Labs Result diagrams: 04/07/22 06:01 04/07/22 06:01 Labs: Abnormal lab results 04/06/22 04/06/22 04/07/22 Range/Units 16:09 20:00 06:01 RBC 3.89 L (4.20-5.50) X10*6/uL Hgb 11.7 L (12.0-16.0) g/dl Hct 34.7 L (37.0-47.0) % Sodium (135-145) mmol/L Carbon Dioxide (22-29) mmol/L Anion Gap (12-20) BUN (9-16) mg/dL POC Glucose 184 H 255 H (60-115) mg/dL Fasting Glucose (60-99) mg/dL 04/07/22 04/07/22 04/07/22 Range/Units 06:01 07:20 11:59 RBC (4.20-5.50) X10*6/uL Hgb (12.0-16.0) g/dl Hct (37.0-47.0) % Sodium 134 L (135-145) mmol/L Carbon Dioxide 20 L (22-29) mmol/L Anion Gap 11 L (12-20) BUN 24 H (9-16) mg/dL POC Glucose 184 H 204 H (60-115) mg/dL Fasting Glucose 186 H (60-99) mg/dL Short CBC 04/07/22 Range/Units 06:01 WBC 9.2 (4.8-10.8) X10*3/uL Hgb 11.7 L (12.0-16.0) g/dl Hct 34.7 L (37.0-47.0) % Plt Count 207 (160-400) X10*3/uL BMP 04/07/22 06:01 Sodium 134 L Potassium 4.4 Chloride 107 Carbon Dioxide 20 L BUN 24 H Creatinine 1.36 Calcium 8.5 Urine 04/04/22 Range/Units 15:36 Urine Color YELLOW Urine Appearance CLEAR Urine pH 6.0 (5.0-8.0) Ur Specific [place] 1.015 (1.005-1.025) Urine Protein NEG (NEG-TRACE) MG/DL Urine Glucose (UA) >=1000 H (NEG) MG/DL All other labs normal. Assessment and Plan (1) IVONE (acute kidney injury): Status: Acute (2) Kidney stones: Status: Acute Plan outpatient follow-up as required Procedures Date of Service Date of Service: 04/07/22
== END 2022-04-07 14:11 | disposition home or self-care (01) | DRG 638 ==
LOC: HO.ED 17:30 → HO.EDOVER 22:18 → HO.S3 04-05 12:48
PROVIDERS: Physician Assistant Medical; Admitting Provider Hospitalist; Emergency Provider Emergency Medicine; Visit Provider Internal Medicine
DX: E11.65 Type 2 diabetes mellitus with hyperglycemia (principal); D62 Acute posthemorrhagic anemia; N17.9 Acute kidney failure, unspecified; N13.30 Unspecified hydronephrosis; K75.81 Nonalcoholic steatohepatitis (NASH); I10 Essential (primary) hypertension; R04.0 Epistaxis; Z87.442 Personal history of urinary calculi; Z20.822 Contact with and (suspected) exposure to COVID-19; Z79.899 Other long term (current) drug therapy
CPT/HCPCS: 36415; 74176; 80048; 80053; 81001; 82009; 82947; 83036; 83615; 83735; 85025; 85027; 85610; 87635; 96360; 96361; 99285

== ENCOUNTER 2022-10-03 09:50 | Outpatient (REF) | payer MEDICARE, MEDICAID, SELFPAY ==
[2022-10-03 11:21] LABS: MANUAL DIFF FLAG NO
[2022-10-03 11:37] LABS: Basophils Absolute Auto 0.1 X10*3/uL (0.0-0.2); Basophils Percent Auto 0.6 % (0-2); Eosinophils Absolute Auto 0.3 X10*3/uL (0.0-0.4); Eosinophils Percent Auto 2.7 % (0-4); Hematocrit 36.6 % (37.0-47.0); Imm Gran Abs Auto 0.04 X10*3/uL (0.00-0.03); Imm Gran Pct Auto 0.4 % (0.0-0.4); Lymphocytes Absolute Auto 1.9 X10*3/uL (1.2-4.9); Lymphocytes Percent Auto 18.7 % (20-40); Mean Corpuscular HGB Conc 32.8 g/dl (31.0-35.0); Mean Corpuscular Hemoglobin 30.3 pg (27.0-33.0); Mean Corpuscular Volume 92.4 fL (80.0-98.0); Mean Platelet Volume 12.2 fL (9.4-12.3); Monocytes Absolute Auto 0.8 X10*3/uL (0.1-1.2); Monocytes Percent Auto 8.2 % (2-11); Neutrophils Absolute Auto 7.1 x10*3/uL (2.0-8.3); Neutrophils Percent Auto 69.4 % (45-73); Platelet Count 274 X10*3/uL (160-400); Red Blood Count 3.96 X10*6/uL (4.20-5.50); Red Cell Distribution Width 12.8 % (11.0-16.0); White Blood Count 10.2 X10*3/uL (4.8-10.8)
[2022-10-03 11:59] LABS: Alanine Aminotransferase 16 U/L (0-31); Albumin Level 4.2 g/dL (3.5-5.0); Alkaline Phosphatase 80 U/L (39-117); Anion Gap 12 (12-20); Aspartate Amino Transferase 21 U/L (5-31); Bilirubin Total 0.5 mg/dL (0.0-1.0); Blood Urea Nitrogen 62 mg/dL (9-16); Calcium 9.7 mg/dL (8.4-10.2); Carbon Dioxide 20 mmol/L (22-29); Chloride 110 mmol/L (96-108); Cholesterol 278 mg/dL; Estimated Glomerular Filt Rate 20; Glucose Fasting 110 mg/dL (60-99); HDL Cholesterol 33 mg/dL; LDL Cholesterol Calculated 212 mg/dl; Potassium 5.2 mmol/L (3.3-5.1); Sodium 137 mmol/L (135-145); Total Protein 7.6 g/dL (6.5-8.0); Triglycerides 165 mg/dL
[2022-10-03 12:08] LABS: Estimated Average Glucose 103 mg/dL; Hemoglobin A1c % 5.2 %
[2022-10-03 12:22] LABS: TSH reflex Free T4 1.59 uIU/mL (0.32-4.0)
[2022-10-03 12:28] LABS: Creatinine Urine 91.79 mg/dL; Microalbum/Creatinine Ratio Ur 11.9 ug/mg cr
== END 2022-10-03 09:51 | disposition home or self-care (01) ==
LOC: HO.HMGCLDS 09:50
PROVIDERS: PCP Internal Medicine; Visit Provider Internal Medicine
DX: E11.9 Type 2 diabetes mellitus without complications (principal); I10 Essential (primary) hypertension; N17.9 Acute kidney failure, unspecified
CPT/HCPCS: 36415; 80053; 80061; 82043; 83036; 84443; 85025

== ENCOUNTER 2022-10-10 09:54 | Outpatient (REF) | payer MEDICARE, MEDICAID, SELFPAY ==
[2022-10-10 11:44] LABS: Anion Gap 15 (12-20); Blood Urea Nitrogen 52 mg/dL (9-16); Calcium 9.7 mg/dL (8.4-10.2); Carbon Dioxide 20 mmol/L (22-29); Chloride 108 mmol/L (96-108); Estimated Glomerular Filt Rate 26; Glucose Random 84 mg/dL (60-115); Potassium 4.6 mmol/L (3.3-5.1); Sodium 138 mmol/L (135-145)
== END 2022-10-10 09:55 | disposition home or self-care (01) ==
LOC: HO.HMGCLDS 09:54
PROVIDERS: PCP Internal Medicine; Visit Provider Internal Medicine
DX: N17.9 Acute kidney failure, unspecified (principal)
CPT/HCPCS: 36415; 80048

== ENCOUNTER 2022-11-15 11:12 | Outpatient (REF) | payer MEDICARE, MEDICAID, SELFPAY ==
[2022-11-15 13:41] LABS: Alanine Aminotransferase 13 U/L (0-31); Albumin Level 4.1 g/dL (3.5-5.0); Alkaline Phosphatase 78 U/L (39-117); Anion Gap 15 (12-20); Aspartate Amino Transferase 23 U/L (5-31); Bilirubin Total 0.7 mg/dL (0.0-1.0); Blood Urea Nitrogen 37 mg/dL (9-16); Calcium 9.5 mg/dL (8.4-10.2); Carbon Dioxide 24 mmol/L (22-29); Chloride 105 mmol/L (96-108); Cholesterol 180 mg/dL; Estimated Glomerular Filt Rate 24; Glucose Fasting 106 mg/dL (60-99); HDL Cholesterol 34 mg/dL; LDL Cholesterol Calculated 120 mg/dl; Potassium 4.5 mmol/L (3.3-5.1); Sodium 139 mmol/L (135-145); Total Protein 7.4 g/dL (6.5-8.0); Triglycerides 131 mg/dL
== END 2022-11-15 11:13 | disposition home or self-care (01) ==
LOC: HO.HMGCLDS 11:12
PROVIDERS: PCP Internal Medicine; Visit Provider Internal Medicine
DX: I12.9 Hypertensive chronic kidney disease with stage 1 through stage 4 chronic kidney disease, or unspecified chronic kidney disease (principal); N18.4 Chronic kidney disease, stage 4 (severe); N17.9 Acute kidney failure, unspecified; E78.5 Hyperlipidemia, unspecified
CPT/HCPCS: 36415; 80053; 80061

== ENCOUNTER 2022-12-19 12:22 | Outpatient (REF) | payer MEDICARE, MEDICAID, SELFPAY ==
--- NOTE | ~2022-12-19 | MM_ITS ---
EXAMINATION: MM SCREENING DIGITAL BREAST TOMOSYNTHESIS, BILATERAL CLINICAL INFORMATION: Screening. Asymptomatic. The lifetime risk of breast cancer based on the Tyrer-Cuzick Model is 3.2%. COMPARISON: Mammography: None TECHNIQUE: Digital breast tomosynthesis is performed in both the craniocaudal and mediolateral oblique views along with computer-aided detection (CAD). Synthesized 2D images are generated from the tomosynthesis. FINDINGS: There are scattered areas of fibroglandular density (ACR BI-RADS breast composition Category b). There are no significant masses, abnormal calcifications, or other abnormalities. MM/MM tomosynthesis screening BI IMPRESSION: No mammographic evidence of malignancy. ASSESSMENT: BI-RADS 1: Negative RECOMMENDATION: Routine annual mammography screening. This patient's information was entered into a reminder system with a target due date for their next mammogram.
== END 2022-12-19 12:23 | disposition home or self-care (01) ==
LOC: HO.MAMMO 12:22
PROVIDERS: PCP Internal Medicine; Visit Provider Internal Medicine
DX: Z12.31 Encounter for screening mammogram for malignant neoplasm of breast (principal)
CPT/HCPCS: 77063; 77067

== ENCOUNTER 2023-02-03 11:08 | Outpatient (REF) | payer MEDICARE, MEDICAID, SELFPAY ==
[2023-02-03 14:03] LABS: Appearance Urine Cloudy; Color Urine Yellow; Glucose Urine UA Negative (Negative); Leukocyte Esterase Urine Large (3+) (Negative); Nitrite Urine Negative (Negative); PH 5.5 (5.0-9.0); UMIC TRIGGER UA YES; Urine Blood Negative (Negative); Urine Ketones Negative (Negative); Urine Protein Negative (Neg-Trace)
[2023-02-03 14:07] LABS: Hematocrit 39.5 % (37.0-47.0); Hemoglobin 12.8 g/dl (12.0-16.0); Mean Corpuscular HGB Conc 32.4 g/dl (31.0-35.0); Mean Corpuscular Hemoglobin 29.3 pg (27.0-33.0); Mean Corpuscular Volume 90.4 fL (80.0-98.0); Mean Platelet Volume 12.4 fL (9.4-12.3); Platelet Count 255 X10*3/uL (160-400); Red Blood Count 4.37 X10*6/uL (4.20-5.50); Red Cell Distribution Width 13.2 % (11.0-16.0); White Blood Count 8.7 X10*3/uL (4.8-10.8)
[2023-02-03 14:12] LABS: WBC Urine 21-50 /HPF (0-5)
[2023-02-03 14:13] LABS: Bacteria Urine 3+ (None Seen); Hyaline Casts Urine 0-2 /LPF (0-2); RBC Urine 0-2 /HPF (0-2)
[2023-02-03 14:34] LABS: Creatinine Urine 167.23 mg/dL; Microalbum/Creatinine Ratio Ur 33.4 ug/mg cr; Total Protein Urine Random 16 mg/dL (<12)
[2023-02-03 14:51] LABS: Anion Gap 12 (12-20); Blood Urea Nitrogen 42 mg/dL (9-16); Calcium 9.4 mg/dL (8.4-10.2); Carbon Dioxide 24 mmol/L (22-29); Chloride 107 mmol/L (96-108); Estimated Glomerular Filt Rate 28; Phosphorus 4.1 mg/dL (2.7-4.5); Potassium 4.4 mmol/L (3.3-5.1); Sodium 139 mmol/L (135-145); Uric Acid 8.1 mg/dL (2.4-5.7); Vitamin D 25-OH Total 31.2 ng/mL (>30)
[2023-02-04 18:28] LABS: Calcium (PTHI) 9.6 mg/dL (8.6-10.4); PTHI 41 pg/mL (16-77)
[2023-02-04 22:48] LABS: Prot Elec - Albumin 4.2 g/dL (3.8-4.8); Prot Elec - Alpha1 0.3 g/dL (0.2-0.3); Prot Elec - Alpha2 0.9 g/dL (0.5-0.9); Prot Elec - Beta 1 0.5 g/dL (0.4-0.6); Prot Elec - Beta 2 0.4 g/dL (0.2-0.5); Prot Elec - Gamma 1.5 g/dL (0.8-1.7); Prot Elec - Total Protein 7.7 g/dL (6.1-8.1)
[2023-02-05 05:19] LABS: HBsAGNum1 0.29 S/CO (0.00-0.99); Hepatitis B Surface Antigen Negative (Negative); ~HepC Num1 0.09 S/CO (0.00-0.79); ~Hepatitis C Antibody Nonreactive (Nonreactive)
[2023-02-06 11:53] LABS: Neutrophil Cyto Ab Screen NEGATIVE (NEGATIVE)
[2023-02-08 17:23] LABS: Phospholipase A2 IgG ELISA <4 RU/mL; Phospholipase A2 IgG IFA NEGATIVE (NEGATIVE)
== END 2023-02-03 11:09 | disposition home or self-care (01) ==
LOC: HO.HMGCLDS 11:08
PROVIDERS: PCP Internal Medicine; Visit Provider Internal Medicine Nephrology
DX: I12.9 Hypertensive chronic kidney disease with stage 1 through stage 4 chronic kidney disease, or unspecified chronic kidney disease (principal); N18.32 Chronic kidney disease, stage 3b
CPT/HCPCS: 36415; 80051; 81001; 82043; 82306; 82310; 82565; 83520; 83970; 84100; 84156; 84165; 84520; 84550; 85027; 86036; 86255; 86803; 87340

== ENCOUNTER 2023-02-20 11:58 | Outpatient (REF) | payer MEDICARE, MEDICAID, SELFPAY ==
--- NOTE | ~2023-02-20 | NM_ITS ---
EXAMINATION: RENAL DYNAMIC IMAGING STUDY WITH LASIX CLINICAL INFORMATION: Hypertension, stage III be chronic kidney disease. COMPARISON: The previous study dated 06/06/2017 is available for comparison. TECHNIQUE: Serial gamma scintillation camera images were obtained over the posterior trunk during the initial transit and subsequent distribution of a bolus intravenous injection of 10 mCi of Tc-99m DTPA. At 30 minutes later, 40 mg of Lasix was administered intravenously and an additional 30 minutes of images obtained. FINDINGS: Initial rapid sequence images show no definite perfusion to the right kidney. There is moderately diminished perfusion to the left kidney. Subsequent sequential static images obtained up to 30 minutes show no concentration in the right kidney at any time during the study. Concentration in the left kidney is well visualized but this is significantly less intense than normal with persistent background activity present throughout the study and contrast between the left kidney and background much less than normal. Excretory function is visualized in the left renal pelvis by 3 minutes post injection. Urinary bladder is outside the [id number] for most of the study, and its initial appearance cannot be evaluated. At 30 minutes there is only mild retention in the left renal collecting system, and this does not appear dilated. Following Lasix administration, there is continued washout from the left renal collecting system. At the end of the study the superior aspect of a full urinary bladder is visualized, but most of the urinary bladder remains outside the [id number]. There is no significant retention in the left kidney at the end of the study. There continues to be no visualization of the right kidney. Meaningful T-1/2 washout times following Lasix administration cannot be compared calculated on either side. On the left there is only minimal retention in the renal pelvis at the time of Lasix administration, and on the right no excretory activity is visualized at any time. The relative function of the two kidneys based on the 2-3 minute images are: Left 100% and right 0%. Compared to the previous study dated 06/06/2017, the absent function of the right kidney is a new finding. The left kidney does not appear significantly changed. NM/NM renal flow w pharm int IMPRESSION: LEFT KIDNEY: Moderately impaired perfusion and function. No hydronephrosis or outflow obstruction. RIGHT KIDNEY: No perfusion or function of this kidney is visualized. Because of the absent function, the presence of hydronephrosis or outflow obstruction cannot be determined. These findings are a marked change from 06/06/2017 when flow and function of this kidney are well visualized.
--- NOTE | ~2023-02-20 | US_ITS ---
EXAMINATION: US RETROPERITONEAL LIMITED (RENAL ONLY) CLINICAL INFORMATION: Chronic kidney disease, stage 3b. COMPARISON: CT abdomen and pelvis 04/04/2022. X-ray KUB 06/08/2019. Renal ultrasound 03/24/2019 and 12/02/2018. TECHNIQUE: Real-time imaging of the kidneys. FINDINGS: RIGHT KIDNEY: 13.5 x 6.7 x 7.7 cm (SAG x AP x TRV). There is marked hydronephrosis with severe cortical thinning. No focal parenchymal lesions. There are multiple calculi, the largest at the lower pole showing a maximal diameter of 7 mm, with twinkle artifact. LEFT KIDNEY: 12.0 x 6.0 x 6.1 cm (SAG x AP x TRV). The kidney is normal in size, contour, and echogenicity. Renal cortical thickness is normal. No renal calculi or hydronephrosis. At the upper pole, a 1.3 x 1.4 x 1.2 cm hyperechoic, circumscribed mass is seen. This is consistent with a benign angiomyolipoma and correlates with CT imaging dated 04/04/2022 and the renal ultrasound dated 02/22/2019, with stable imaging features. BLADDER: Bilateral ureteral jets are demonstrated. US/US renal BI IMPRESSION: 1. There is severe right hydronephrosis. 2. Nonobstructing right renal calculi seen within the largest at the lower pole measuring 7 mm. 3. There is a continued stable appearance of a 1.5 cm maximal diameter left renal probable angiomyolipoma. The interim stability from 03/24/2019 strongly suggests a benign etiology.
== END 2023-02-20 11:59 | disposition home or self-care (01) ==
LOC: HO.US 11:58
PROVIDERS: PCP Internal Medicine; Visit Provider Internal Medicine Nephrology
DX: I12.9 Hypertensive chronic kidney disease with stage 1 through stage 4 chronic kidney disease, or unspecified chronic kidney disease (principal); N18.32 Chronic kidney disease, stage 3b
CPT/HCPCS: 76775; 78708; A9539

== ENCOUNTER 2023-10-15 10:06 | Outpatient (REF) | payer MEDICARE, SELFPAY ==
[2023-10-15 13:21] LABS: MANUAL DIFF FLAG NO
[2023-10-15 13:26] LABS: Basophils Absolute Auto 0.1 X10*3/uL (0.0-0.2); Basophils Percent Auto 0.5 % (0-2); Eosinophils Absolute Auto 0.3 X10*3/uL (0.0-0.4); Eosinophils Percent Auto 3.4 % (0-4); Hematocrit 38.9 % (37.0-47.0); Hemoglobin 13.4 g/dl (12.0-16.0); Imm Gran Abs Auto 0.03 X10*3/uL (0.00-0.03); Imm Gran Pct Auto 0.3 % (0.0-0.4); Lymphocytes Absolute Auto 1.7 X10*3/uL (1.2-4.9); Lymphocytes Percent Auto 18.6 % (20-40); Mean Corpuscular HGB Conc 34.4 g/dl (31.0-35.0); Mean Platelet Volume 12.5 fL (9.4-12.3); Monocytes Absolute Auto 0.7 X10*3/uL (0.1-1.2); Monocytes Percent Auto 6.9 % (2-11); Neutrophils Absolute Auto 6.6 x10*3/uL (2.0-8.3); Neutrophils Percent Auto 70.3 % (45-73); Platelet Count 235 X10*3/uL (160-400); Red Blood Count 4.32 X10*6/uL (4.20-5.50); Red Cell Distribution Width 13.3 % (11.0-16.0); White Blood Count 9.4 X10*3/uL (4.8-10.8)
[2023-10-15 13:37] LABS: Estimated Average Glucose 108 mg/dL; Hemoglobin A1c % 5.4 % (<6.0)
[2023-10-15 13:41] LABS: Alanine Aminotransferase 12 U/L (0-31); Alkaline Phosphatase 92 U/L (39-117); Anion Gap 11 (12-20); Aspartate Amino Transferase 28 U/L (5-31); Bilirubin Total 0.5 mg/dL (0.0-1.0); Blood Urea Nitrogen 34 mg/dL (9-16); Calcium 10.7 mg/dL (8.4-10.2); Carbon Dioxide 24 mmol/L (22-29); Chloride 107 mmol/L (96-108); Cholesterol 184 mg/dL (<200); Estimated Glomerular Filt Rate 32; Glucose Fasting 114 mg/dL (60-99); HDL Cholesterol 42 mg/dL (>40); LDL Cholesterol Calculated 117 mg/dL (<100); Potassium 4.4 mmol/L (3.3-5.1); Sodium 138 mmol/L (135-145); Triglycerides 129 mg/dL (<150)
[2023-10-15 14:03] LABS: Creatinine Urine 51.89 mg/dL; Microalbum/Creatinine Ratio Ur 98.2 ug/mg cr (<30)
== END 2023-10-15 10:07 | disposition home or self-care (01) ==
LOC: HO.HMGCLDS 10:06
PROVIDERS: PCP Internal Medicine; Visit Provider Internal Medicine
DX: Z00.00 Encounter for general adult medical examination without abnormal findings (principal); E11.9 Type 2 diabetes mellitus without complications; N18.4 Chronic kidney disease, stage 4 (severe); E78.5 Hyperlipidemia, unspecified
CPT/HCPCS: 36415; 80053; 80061; 82043; 82570; 83036; 85025

== ENCOUNTER 2023-10-27 10:22 | Outpatient (AMB) | payer MEDICARE, SELFPAY ==
[2023-10-27 10:29] VITALS: BP 120/76; PULSE 75; O2SAT 96; BMI 31.2
--- NOTE | 2023-10-27 10:29 | MHC.PC.OV ---
Vital Signs 10/27/23 10:29 Height 5 ft 5.8 in Weight 192 lb BMI 31.2 BP 120/76 Blood Pressure Location Lt brachial Position Sitting Pulse 75 Pulse Source Pulse Oximeter Pulse Oximetry (%) 96 Oxygen Delivery Method Room Air Intake Visit Reasons: Followup Intake Note: Pt is here today for a follow up visit. Allergies metformin Adverse Reaction (Intermediate, Verified 10/27/23 10:51) Diarrhea Tobacco use date assessed: 10/27/23 Fall risk assessment: No Falls in past year Last assessed Fall Risk: 10/27/23 Dental Screening Dental Screen Date: 10/27/23 Did you have a dental visit in the last 12 months?: No Did you have a dental problem in the last 6 months where you did not have access to dental care?: No Was dental information given to patient?: Patient declined HPI HPI Comments History of Present Illness Details Patient presents for PE. Type 2 diabetes is controlled on Januvia patient reports fasting blood glucose between 90-110. She was evaluated by enterprise engineer had renal scan in January 2023 consistent with right kidney no perfusion of function and moderately impaired left kidney perfusion and function but no obstruction. Patient follows up with urologist for chronic recurrent nephrolithiasis status post multiple laser treatments. [facility] Surgical History H/O lithotripsy Family History Father Lung cancer Social History Household Members Other:: lives alone in apartment, no work, no children, 1 sister and brother Housing: Apartment Do you presently have visiting nurse or other home services: No Alcohol intake: never Patient Tobacco Use Status: Never used Tobacco e-Cigarette/Vaping Use: Never Used service: No Current occupational status: retired Cognitive needs: No Hearing needs: No Vision needs: Yes Questionnaire PHQ-9 Over the last 2 weeks, how often have you been bothered by any of the following problems? 1. Little interest or pleasure in doing things: not at all 2. Feeling down, depressed, or hopeless: not at all 3. Trouble falling or staying asleep, or sleeping too much: not at all 4. Feeling tired or having little energy: not at all 5. Poor appetite or overeating: not at all 6. Feeling bad about yourself - or that you are a failure or have let yourself or your family down: not at all 7. Trouble concentrating on things, such as reading the newspaper or watching television: not at all 8. Moving or speaking so slowly that other people could have noticed. Or the opposite - being so fidgety or restless that you have been moving around a lot more than usual: not at all 9. Thoughts that you would be better off or of hurting yourself in some way: not at all Total score: 0 Depression Screening Interpretation: Negative Depression Screening Done: Yes Source: Developed by Drs. Jagdish Bunn, Shawnee Bowers, Unruly Wright and colleagues, with an educational radha from [employer]. Thrive Questionnaire Date Thrive assessed: 10/27/23 I am a: Patient What is your living situation today?: I have a steady place to live Within the past 12 months, did the food you bought not last and you didn't have the money to get more?: Never true Within the past 12 months, did you worry whether your food would run out before you got money to buy more?: Never true Do you have trouble paying for medicines?: No Do you have trouble getting transportation to medical appointments?: No Do you have trouble paying your heating and electricity bill?: No Do you have trouble taking care of your child, family member or friend?: No Do you have trouble with day-to-day activities such as bathing, preparing meals, shopping, managing finances, etc.?: No Are you currently unemployed and looking for a job?: No Are you interested in more education?: No Please select the resources that you would like help with: None Currently or been in a relationship where the following occur: no concerns reported THRIVE Score: 0 AUDIT C Alcohol Use Questionnaire (AUDIT-C) 1. How often do you have a drink containing alcohol?: Never 3. How often do you have six or more drinks on one occasion?: Never Total Score: 0 SHORTY-7 AMB Questionnaire SHORTY-7 Date SHORTY - 7 assessed: 10/27/23 Feeling nervous, anxious, or on edge: 0 = Not at all Not being able to stop or control worryin = Not at all Worrying too much about different things: 0 = Not at all Trouble relaxin = Not at all Being so restless that it is hard to sit still: 0 = Not at all Becoming easily annoyed or irritable: 0 = Not at all Feeling afraid as if something awful might happen: 0 = Not at all Total SHORTY-7 score (0-4 normal; 5-9 mild; 10-14 moderate; 15-21 severe): 0 Source: Developed by Drs. Jagdish Bunn, Shawnee Bowers, Unruly Wright and colleagues, with an educational radha from [employer]. SHORTY-7 Assessment Billing SHORTY-7 Assessment Tool: SHORTY-7 Assessment 40895 Review of Systems Const All systems reviewed & are unremarkable except as noted in HPI and below Reports no additional complaints Eyes Reports no additional complaints ENT Reports no additional complaints Card Reports no additional complaints Resp Reports no additional complaints GI Reports no additional complaints Reports no additional complaints Physical exam (Primary Care) Vital Signs: Last Vital Signs Pulse 75 10/27/23 10:29 BP 120/76 10/27/23 10:29 Pulse Ox 96 10/27/23 10:29 Oxygen Delivery Method Room Air 10/27/23 10:29 BMI result Body Mass Index 31.2 Tobacco/Smoking Status: Tobacco use Status Tobacco use date assessed 10/27/23 10/27/23 10:54 Patient Tobacco Use Status Never used Tobacco 10/27/23 10:54 e-Cigarette/Vaping Use Never Used 10/27/23 10:29 PHQ-9: PHQ-9 Score PHQ-9: Total score 0 10/27/23 10:54 Depression Screening Interpretation: Negative Thrive Assessment: Date of Thrive Assessment Date Thrive assessed 10/27/23 10/27/23 10:54 Currently or been in a relationship where the following occur: no concerns reported Const General: no acute distress HENMT Head: Yes normal to inspection Ears: hearing grossly normal bilaterally Mouth: Normal oral and palatal mucosa present Neck Neck: Yes no lymphadenopathy Resp Effort & Inspection: normal respiratory effort Auscultation: clear to auscultation bilaterally Cardio Rhythm: regular rhythm Heart sounds: S1 normal heart sound present and S2 normal heart sound present GI Inspection: Yes normal to inspection Palpation (GI): Soft to palpation Percussion: Yes normal to percussion Auscultation: normal bowel sounds Extrem General: Yes no clubbing, cyanosis or edema Assessment and Plan Assessment & Plan (1) CKD (chronic kidney disease) stage 4, GFR 15-29 ml/min: Comment: Renal scan 02/21 right kidney no perfusion of function, left kidney moderately impaired perfusion and function no obstruction, renal ultrasound severe hydronephrosis on the right, 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 Code(s): N18.4 - Chronic kidney disease, stage 4 (severe) Plan: Ten Januvia to Jardiance 10 mg for diabetes and kidney disease stage 3/4, follow-up in 3 months with a fasting labs before (2) Diabetes mellitus, new onset: Code(s): E11.9 - Type 2 diabetes mellitus without complications Plan: A1c is 5.2, continue ADA diet, increase exercise change Januvia to Jardiance 10 mg (3) Hypertension: Code(s): I10 - Essential (primary) hypertension Plan: Continue Amlodipne (4) Colonoscopy refused: Comment: 10/24, Cologuard ordered 10/24 Code(s): Z53.20 - Procedure and treatment not carried out because of patient's decision for unspecified reasons (5) Hyperlipidemia: Code(s): E78.5 - Hyperlipidemia, unspecified Plan: Continue statin (6) Annual physical exam: Code(s): Z00.00 - Encounter for general adult medical examination without abnormal findings Plan: Well-balanced diet regular physical activity discussed with the patient. Patient refused colonoscopy Cologuard will be sent, patient will schedule an appointment for mammogram Orders: Orders Hemoglobin A1c 3 Months E11.9 - Type 2 diabetes mellitus without complications, I10 - Essential (primary) hypertension, N18.4 - Chronic kidney disease, stage 4 (severe) Microalbumin, Random (w Creat) 3 Months E11.9 - Type 2 diabetes mellitus without complications, I10 - Essential (primary) hypertension, N18.4 - Chronic kidney disease, stage 4 (severe) Comprehensive [place]. Panel Fast 3 Months E11.9 - Type 2 diabetes mellitus without complications, I10 - Essential (primary) hypertension, N18.4 - Chronic kidney disease, stage 4 (severe) Lipid Panel 3 Months E11.9 - Type 2 diabetes mellitus without complications, I10 - Essential (primary) hypertension, N18.4 - Chronic kidney disease, stage 4 (severe) Complete Blood Count Auto Diff 3 Months E11.9 - Type 2 diabetes mellitus without complications, I10 - Essential (primary) hypertension, N18.4 - Chronic kidney disease, stage 4 (severe) Referrals Cologuard Test Z12.11 - Encounter for screening for malignant neoplasm of colon, Z12.12 - Encounter for screening for malignant neoplasm of rectum Medications: New empagliflozin (Jardiance) 10 mg PO DAILY 90 tabs 1RF Discontinued sitagliptin phosphate (Januvia) Discontinued Reason: Doctor's Order 100 mg PO DAILY 90 tabs 0RF Coding Level of Care Code Est Pt Prev Care >65y(42623) Diagnoses CKD (chronic kidney disease) stage 4, GFR 15-29 ml/min N18.4 Diabetes mellitus, new onset E11.9 Hypertension I10 Colonoscopy refused Z53.20 Hyperlipidemia E78.5 Annual physical exam Z00.00 Additional Codes SHORTY-7 Assessment Billing - SHORTY-7 Assessment Tool: SHORTY-7 Assessment [id number] ([id number])
== END 2023-10-27 11:36 | disposition home or self-care (01) ==
PROVIDERS: PCP Internal Medicine; Visit Provider Internal Medicine
DX: Z00.00 Encounter for general adult medical examination without abnormal findings (principal); I12.9 Hypertensive chronic kidney disease with stage 1 through stage 4 chronic kidney disease, or unspecified chronic kidney disease; N18.4 Chronic kidney disease, stage 4 (severe); E11.22 Type 2 diabetes mellitus with diabetic chronic kidney disease; Z53.20 Procedure and treatment not carried out because of patient's decision for unspecified reasons; E78.5 Hyperlipidemia, unspecified
CPT/HCPCS: 99397

== ENCOUNTER 2023-12-17 13:16 | Outpatient (AMB) | payer MEDICARE, SELFPAY ==
--- NOTE | 2023-12-17 13:45 | HO.NEPHOV_ITS ---
HPI HPI Comments History of Present Illness Details I had the pleasure of seeing Marian in follow-up of her chronic kidney disease and hypertension. Her right kidney had been hydronephrotic with 0% function by nuclear scan. She has a diabetic. She has been started on Jardiance recently. She has history of renal stones and still had 1 stone by her last ultrasound. She does not have any nausea, vomiting, diarrhea, chest pain, shortness of breath, paroxysmal nocturnal dyspnea, orthopnea, pedal edema or urinary symptoms. She has no history of coronary artery disease, CVA, TIA, carotid disease or history cancer. She was on MACKENZIE inhibitor in the past which w as taken off and her serum creatinine went over 2. Her last serum creatinine was 1.6. [facility] Medical History (Updated 12/17/23 @ 14:16 by Antonio Herman MD) Kidney stones Surgical History H/O lithotripsy Family History Father Lung cancer Social History Household Members Other:: lives alone in apartment, no work, no children, 1 sister and brother Housing: Apartment Do you presently have visiting nurse or other home services: No Alcohol intake: never Patient Tobacco Use Status: Never used Tobacco e-Cigarette/Vaping Use: Never Used service: No Current occupational status: retired Cognitive needs: No Hearing needs: No Vision needs: Yes Vital Signs 12/17/23 13:46 Height 5 ft 5.8 in Weight 194 lb 6 oz BMI 31.6 BP 120/70 Blood Pressure Location Lt brachial Position Sitting Physical Exam Vital Signs: Last Vital Signs BP 120/70 12/17/23 13:46 BMI result Body Mass Index 31.6 Const General: comfortable and no acute distress Orientation/consciousness: patient oriented x3 HEENT Head: Yes normocephalic Mouth: Normal oral and palatal mucosa present Eyes EOM: EOMs intact bilaterally Neck Neck: Yes supple Resp Auscultation: clear to auscultation bilaterally Cardio Jugular venous distension: no JVD Rate: regular rate GI Palpation (GI): Soft to palpation Auscultation: normal bowel sounds General: Yes no CVA tenderness Back/Spine/Pelvis Back: no CVA tenderness Skin General skin exam: no rashes or lesions noted Neuro General: patient oriented x3 and moves all extremities Extrem General: Yes no pedal edema Assessment & Plan Assessment & Plan (1) Hypertension: Code(s): I10 - Essential (primary) hypertension Qualifiers: Hypertension type: secondary to other renal disorders Qualified Code(s): I15.1 - Hypertension secondary to other renal disorders (2) Stage 3b chronic kidney disease: Code(s): N18.32 - Chronic kidney disease, stage 3b (3) Hydronephrosis of right kidney: Code(s): N13.30 - Unspecified hydronephrosis (4) Kidney stones: Comment: f/u urology Dr. 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 Her blood pressure is at goal. Her renal functions are stable. She has been started on Jardiance. She was on lisinopril which was stopped when her serum creatinine went over 2. She is currently on amlodipine and serum creatinine has settled to baseline with maintenance of blood pressure at goal. She does not take any nonsteroidal anti-inflammatories and maintain good hydration. I did not make any medication changes. Follow-up lab work ordered and answered all questions. Orders: Orders Blood Urea Nitrogen Today I10 - Essential (primary) hypertension, N18.32 - Pe Teacher darshana kidney disease, stage 3b Electrolytes Today I10 - Essential (primary) hypertension, N18.32 - Chronic kidney disease, stage 3b Complete Blood Count Auto Diff Today I10 - Essential (primary) hypertension, N18.32 - Chronic kidney disease, stage 3b Creatinine Today I10 - Essential (primary) hypertension, N18.32 - Chronic kidney disease, stage 3b Parathyroid Hormone Intact Today I10 - Essential (primary) hypertension, N18.32 - Chronic kidney disease, stage 3b Phosphorus Today I10 - Essential (primary) hypertension, N18.32 - Chronic kidney disease, stage 3b Coding Level of Care Code Est Pt Level 4 (34138) Diagnoses Hypertension secondary to other renal disorders I15.1 Hypertension type: secondary to other renal disorders Stage 3b chronic kidney disease N18.32 Hydronephrosis of right kidney N13.30 Kidney stones N20.0 Angiomyolipoma of kidney D17.71 Results Reviewed Nephrology Results: Hgb 13.4 g/dl (12.0-16.0) 10/15/23 WBC 9.4 X10*3/uL (4.8-10.8) 10/15/23 Plt Count 235 X10*3/uL (160-400) 10/15/23 Sodium 138 mmol/L (135-145) 10/15/23 Potassium 4.4 mmol/L (3.3-5.1) 10/15/23 Chloride 107 mmol/L (96-108) 10/15/23 Carbon Dioxide 24 mmol/L (22-29) 10/15/23 BUN 34 mg/dL (9-16) H 10/15/23 Creatinine 1.60 mg/dL (0.5-1.4) H 10/15/23 Calcium 10.7 mg/dL (8.4-10.2) H 10/15/23 Phosphorus 4.1 mg/dL (2.7-4.5) 02/03/23 PTH Intact 41 pg/mL (16-77) 02/03/23 Urine Protein Negative mg/dL (Neg-Trace) 02/03/23 Urine Creatinine 51.89 mg/dL 10/15/23 Protein/Creatinin Ratio 0.10 (<0.2) 02/03/23 Renal US 02/20/23
[2023-12-17 13:46] VITALS: BP 120/70; BMI 31.6
== END 2023-12-17 14:06 | disposition home or self-care (01) ==
PROVIDERS: PCP Internal Medicine; Visit Provider Internal Medicine Nephrology
DX: I15.1 Hypertension secondary to other renal disorders (principal); N18.32 Chronic kidney disease, stage 3b; N13.30 Unspecified hydronephrosis; N20.0 Calculus of kidney; D17.71 Benign lipomatous neoplasm of kidney
CPT/HCPCS: 99214

== ENCOUNTER → 2023-12-17 13:16 | Outpatient (BNVA) | payer MEDICARE, SELFPAY | PROVIDERS: PCP Internal Medicine; Visit Provider Internal Medicine Nephrology | DX: I15.1 Hypertension secondary to other renal disorders (principal); N18.32 Chronic kidney disease, stage 3b; N13.30 Unspecified hydronephrosis; N20.0 Calculus of kidney; D17.71 Benign lipomatous neoplasm of kidney | CPT/HCPCS: 99212 ==

== ENCOUNTER 2023-12-25 10:57 | Outpatient (REF) | payer MEDICARE, SELFPAY ==
[2023-12-25 13:30] LABS: MANUAL DIFF FLAG NO
[2023-12-25 13:42] LABS: Creatinine Urine 87.48 mg/dL; Microalbum/Creatinine Ratio Ur 57.1 ug/mg cr (<30)
[2023-12-25 13:48] LABS: Estimated Average Glucose 120 mg/dL; Hemoglobin A1c % 5.8 % (<6.0)
[2023-12-25 13:51] LABS: Basophils Absolute Auto 0.1 X10*3/uL (0.0-0.2); Basophils Percent Auto 0.8 % (0-2); Eosinophils Absolute Auto 0.3 X10*3/uL (0.0-0.4); Eosinophils Percent Auto 3.9 % (0-4); Hematocrit 39.7 % (37.0-47.0); Hemoglobin 13.2 g/dl (12.0-16.0); Imm Gran Abs Auto 0.04 X10*3/uL (0.00-0.03); Imm Gran Pct Auto 0.5 % (0.0-0.4); Lymphocytes Absolute Auto 1.8 X10*3/uL (1.2-4.9); Lymphocytes Percent Auto 22.5 % (20-40); Mean Corpuscular HGB Conc 33.2 g/dl (31.0-35.0); Mean Corpuscular Hemoglobin 30.4 pg (27.0-33.0); Mean Corpuscular Volume 91.5 fL (80.0-98.0); Mean Platelet Volume 12.1 fL (9.4-12.3); Monocytes Absolute Auto 0.6 X10*3/uL (0.1-1.2); Monocytes Percent Auto 7.4 % (2-11); Neutrophils Absolute Auto 5.1 x10*3/uL (2.0-8.3); Neutrophils Percent Auto 64.9 % (45-73); Platelet Count 240 X10*3/uL (160-400); Red Blood Count 4.34 X10*6/uL (4.20-5.50); Red Cell Distribution Width 13.2 % (11.0-16.0); White Blood Count 7.9 X10*3/uL (4.8-10.8)
[2023-12-25 14:13] LABS: Alanine Aminotransferase 13 U/L (0-31); Alkaline Phosphatase 93 U/L (39-117); Anion Gap 10 (12-20); Aspartate Amino Transferase 27 U/L (5-31); Bilirubin Total 0.5 mg/dL (0.0-1.0); Blood Urea Nitrogen 40 mg/dL (9-16); Calcium 9.4 mg/dL (8.4-10.2); Carbon Dioxide 26 mmol/L (22-29); Chloride 107 mmol/L (96-108); Cholesterol 175 mg/dL (<200); Estimated Glomerular Filt Rate 31; Glucose Fasting 112 mg/dL (60-99); HDL Cholesterol 36 mg/dL (>40); LDL Cholesterol Calculated 112 mg/dL (<100); Phosphorus 3.5 mg/dL (2.7-4.5); Potassium 4.1 mmol/L (3.3-5.1); Sodium 139 mmol/L (135-145); Total Protein 7.9 g/dL (6.5-8.0); Triglycerides 138 mg/dL (<150)
== END 2023-12-25 10:58 | disposition home or self-care (01) ==
LOC: HO.HMGCLDS 10:57
PROVIDERS: PCP Internal Medicine; Referring Provider Internal Medicine Nephrology; Visit Provider Internal Medicine
DX: I12.9 Hypertensive chronic kidney disease with stage 1 through stage 4 chronic kidney disease, or unspecified chronic kidney disease (principal); E11.22 Type 2 diabetes mellitus with diabetic chronic kidney disease; N18.4 Chronic kidney disease, stage 4 (severe)
CPT/HCPCS: 36415; 80053; 80061; 82043; 82570; 83036; 83970; 84100; 85025

== ENCOUNTER 2023-12-30 11:30 | Outpatient (AMB) | payer MEDICARE, SELFPAY ==
[2023-12-30 12:08] VITALS: BP 114/70; PULSE 71; O2SAT 99; BMI 31.5
--- NOTE | 2023-12-30 12:08 | MHC.PC.OV ---
Vital Signs 12/30/23 12:08 Height 5 ft 5.8 in Weight 194 lb BMI 31.5 BP 114/70 Blood Pressure Location Lt brachial Position Sitting Pulse 71 Pulse Source Pulse Oximeter Pulse Oximetry (%) 99 Oxygen Delivery Method Room Air Intake Visit Reasons: Follow up on labs Intake Note: Pt is here today for a follow up on labs. Allergies metformin Adverse Reaction (Intermediate, Verified 12/30/23 12:09) Diarrhea Medication List - Last Reconciled 12/30/23 by Loretta Kulkarni MD alcohol swabs (CareTouch Alcohol Prep Pad topical pads) 1 pad topical BID amlodipine 10 mg PO DAILY blood sugar diagnostic (FreeStyle Lite Strips) As directed blood-glucose meter (FreeStyle Lite Meter kit) As directed empagliflozin (Jardiance) 10 mg PO DAILY lancets (Lancets,Thin) As directed pravastatin 40 mg PO DAILY Tobacco use date assessed: 12/30/23 Fall risk assessment: No Falls in past year Last assessed Fall Risk: 12/30/23 Dental Screening Dental Screen Date: 10/27/23 HPI Follow up on labs HPI Details Patient presents for the follow-up on hypertension hyperlipidemia chronic kidney disease stage 3b, type 2 diabetes, stable on medications PFSH Medical History Kidney stones Surgical History H/O lithotripsy Family History Father Lung cancer Social History Household Members Other:: lives alone in apartment, no work, no children, 1 sister and brother Housing: Apartment Do you presently have visiting nurse or other home services: No Alcohol intake: never Patient Tobacco Use Status: Never used Tobacco e-Cigarette/Vaping Use: Never Used service: No Current occupational status: retired Cognitive needs: No Hearing needs: No Vision needs: Yes Questionnaire Thrive Questionnaire Date Thrive assessed: 10/27/23 SHORTY-7 AMB Questionnaire SHORTY-7 Date SHORTY - 7 assessed: 10/27/23 Source: Developed by Drs. Jagdish Bunn, Shawnee Bowers, Unruly Wright and colleagues, with an educational radha from [employer]. Review of Systems Const All systems reviewed & are unremarkable except as noted in HPI and below Reports no additional complaints Eyes Reports no additional complaints ENT Reports no additional complaints Card Reports no additional complaints Resp Reports no additional complaints GI Reports no additional complaints Reports no additional complaints Physical exam (Primary Care) Vital Signs: Last Vital Signs Pulse 71 12/30/23 12:08 BP 114/70 12/30/23 12:08 Pulse Ox 99 12/30/23 12:08 Oxygen Delivery Method Room Air 12/30/23 12:08 BMI result Body Mass Index 31.5 Tobacco/Smoking Status: Tobacco use Status Tobacco use date assessed 12/30/23 12/30/23 12:11 Patient Tobacco Use Status Never used Tobacco 12/30/23 12:11 e-Cigarette/Vaping Use Never Used 12/30/23 12:11 Thrive Assessment: Date of Thrive Assessment Date Thrive assessed 10/27/23 12/30/23 12:11 Const General: no acute distress HENMT Face and sinus: Yes normal facial exam Eyes General: appearance normal, both eyes and all related structures Neck Neck: Yes no lymphadenopathy and Yes supple Resp Effort & Inspection: normal respiratory effort Auscultation: clear to auscultation bilaterally Cardio Rhythm: regular rhythm Heart sounds: S1 normal heart sound present and S2 normal heart sound present GI Inspection: Yes normal to inspection Palpation (GI): Soft to palpation Percussion: Yes normal to percussion Auscultation: normal bowel sounds Assessment and Plan Assessment & Plan (1) Hyperlipidemia: Code(s): E78.5 - Hyperlipidemia, unspecified Plan: Continue statin (2) Stage 3b chronic kidney disease: Code(s): N18.32 - Chronic kidney disease, stage 3b Plan: Avoid nephrotoxin monitor renal function continue Jardiance (3) Annual physical exam: Code(s): Z00.00 - Encounter for general adult medical examination without abnormal findings Plan: Referred to GI for colonoscopy (4) Diabetes mellitus, new onset: Comment: A1c 5.8, on Jardiance 12/23 Code(s): E11.9 - Type 2 diabetes mellitus without complications Plan: ADA diet regular physical activity discussed with the patient follow-up in 6 months with a fasting labs before Orders: Orders Lipid Panel 6 Months E11.9 - Type 2 diabetes mellitus without complications, E78.5 - Hyperlipidemia, unspecified, N18.4 - Chronic kidney disease, stage 4 (severe) Complete Blood Count Auto Diff 6 Months E11.9 - Type 2 diabetes mellitus without complications, E78.5 - Hyperlipidemia, unspecified, N18.4 - Chronic kidney disease, stage 4 (severe) Hemoglobin A1c 6 Months E11.9 - Type 2 diabetes mellitus without complications, E78.5 - Hyperlipidemia, unspecified, N18.4 - Chronic kidney disease, stage 4 (severe) TSH reflex Free T4 6 Months E11.9 - Type 2 diabetes mellitus without complications, E78.5 - Hyperlipidemia, unspecified, N18.4 - Chronic kidney disease, stage 4 (severe) Comprehensive [place]. Panel Fast 6 Months E11.9 - Type 2 diabetes mellitus without complications, E78.5 - Hyperlipidemia, unspecified, N18.4 - Chronic kidney disease, stage 4 (severe) Microalbumin, Random (w Creat) 6 Months E11.9 - Type 2 diabetes mellitus without complications, E78.5 - Hyperlipidemia, unspecified, N18.4 - Chronic kidney disease, stage 4 (severe) Referrals Gastroenterology Referral Z00.00 - Encounter for general adult medical examination without abnormal findings Coding Level of Care Code Est Pt Level 4 (14484) Diagnoses Hyperlipidemia E78.5 Stage 3b chronic kidney disease N18.32 Annual physical exam Z00.00 Diabetes mellitus, new onset E11.9
== END 2023-12-30 12:42 | disposition home or self-care (01) ==
PROVIDERS: PCP Internal Medicine; Visit Provider Internal Medicine
DX: E78.5 Hyperlipidemia, unspecified (principal); N18.32 Chronic kidney disease, stage 3b; E11.69 Type 2 diabetes mellitus with other specified complication
CPT/HCPCS: 99214

== ENCOUNTER 2024-01-14 11:41 | Outpatient (REF) | payer MEDICARE, SELFPAY ==
--- NOTE | ~2024-01-14 | MM_ITS ---
EXAMINATION: MM SCREENING DIGITAL BREAST TOMOSYNTHESIS, BILATERAL CLINICAL INFORMATION: Screening. Asymptomatic. COMPARISON: Mammography: This is a baseline study. TECHNIQUE: Digital breast tomosynthesis is performed in both the craniocaudal and mediolateral oblique views along with computer-aided detection (CAD). Synthesized 2D images are generated from the tomosynthesis. FINDINGS: The breasts are almost entirely fatty (ACR BI-RADS breast composition Category a). There are no significant masses, abnormal calcifications, or other abnormalities. MM/MM tomosynthesis screening BI IMPRESSION: No mammographic evidence of malignancy. ASSESSMENT: BI-RADS BI-RADS 1 - Negative RECOMMENDATION: Routine annual mammography screening. 1 year F/U This examination should not preclude the clinical evaluation of a suspicious palpable abnormality. This patient's information was entered into a reminder system with a target due date for their next mammogram.
== END 2024-01-14 11:42 | disposition home or self-care (01) ==
LOC: HO.MAMMO 11:41
PROVIDERS: PCP Internal Medicine; Visit Provider Internal Medicine
DX: Z12.31 Encounter for screening mammogram for malignant neoplasm of breast (principal)
CPT/HCPCS: 77063; 77067

== ENCOUNTER → 2024-01-14 14:15 | Outpatient (BNV) | payer MEDICARE, SELFPAY | PROVIDERS: PCP Internal Medicine; Visit Provider Radiology Diagnostic Radiology | DX: Z12.31 Encounter for screening mammogram for malignant neoplasm of breast (principal) | CPT/HCPCS: 77063; 77067 ==

== ENCOUNTER 2024-04-08 10:57 | Outpatient (REF) | payer MEDICARE, SELFPAY ==
[2024-04-08 13:12] LABS: MANUAL DIFF FLAG NO
[2024-04-08 13:27] LABS: Basophils Absolute Auto 0.1 X10*3/uL (0.0-0.2); Basophils Percent Auto 0.6 % (0-2); Eosinophils Absolute Auto 0.3 X10*3/uL (0.0-0.4); Eosinophils Percent Auto 3.5 % (0-4); Hematocrit 41.1 % (37.0-47.0); Hemoglobin 13.8 g/dl (12.0-16.0); Imm Gran Abs Auto 0.04 X10*3/uL (0.00-0.03); Imm Gran Pct Auto 0.5 % (0.0-0.4); Lymphocytes Absolute Auto 1.7 X10*3/uL (1.2-4.9); Lymphocytes Percent Auto 20.7 % (20-40); Mean Corpuscular HGB Conc 33.6 g/dl (31.0-35.0); Mean Corpuscular Hemoglobin 30.3 pg (27.0-33.0); Mean Corpuscular Volume 90.1 fL (80.0-98.0); Mean Platelet Volume 12.2 fL (9.4-12.3); Monocytes Absolute Auto 0.7 X10*3/uL (0.1-1.2); Monocytes Percent Auto 8.6 % (2-11); Neutrophils Absolute Auto 5.4 x10*3/uL (2.0-8.3); Neutrophils Percent Auto 66.1 % (45-73); Platelet Count 228 X10*3/uL (160-400); Red Blood Count 4.56 X10*6/uL (4.20-5.50); Red Cell Distribution Width 13.7 % (11.0-16.0); White Blood Count 8.1 X10*3/uL (4.8-10.8)
[2024-04-08 13:57] LABS: Anion Gap 12 (12-20); Blood Urea Nitrogen 35 mg/dL (9-16); Carbon Dioxide 22 mmol/L (22-29); Chloride 107 mmol/L (96-108); Estimated Glomerular Filt Rate 29; Potassium 4.1 mmol/L (3.3-5.1); Sodium 137 mmol/L (135-145)
== END 2024-04-08 10:58 | disposition home or self-care (01) ==
LOC: HO.HMGCLDS 10:57
PROVIDERS: PCP Internal Medicine; Visit Provider Internal Medicine Nephrology
DX: I15.1 Hypertension secondary to other renal disorders (principal); N18.32 Chronic kidney disease, stage 3b; R10.9 Unspecified abdominal pain
CPT/HCPCS: 36415; 80051; 82565; 84520; 85025

== ENCOUNTER 2024-04-16 13:09 | Outpatient (AMB) | payer MEDICARE, SELFPAY ==
[2024-04-16 13:51] VITALS: BP 120/70; PULSE 69; O2SAT 98; BMI 30.6
--- NOTE | 2024-04-16 13:51 | HO.NEPHOV_ITS ---
Vital Signs 04/16/24 13:51 Height 5 ft 5.8 in Weight 188 lb 8 oz BMI 30.6 BP 120/70 Blood Pressure Location Rt brachial Position Sitting Pulse 69 Pulse Source Pulse Oximeter Pulse Oximetry (%) 98 Oxygen Delivery Method Room Air Intake Visit Reasons: CKD/ 4 MO FU/ Conf Risk Specialist Required: No Accompanied by: Self / Same As Patient Allergies metformin Adverse Reaction (Intermediate, Verified 04/16/24 13:53) Diarrhea HPI Comments Details: I had the pleasure of seeing Marian in follow-up of her chronic kidney disease and hypertension. She has been having right flank pain. Her right kidney had been hydronephrotic with 0% function by nuclear scan. She has a diabetic. She has been on Jardiance . She has history of renal stones and still had 1 stone by her last ultrasound. She does not have any nausea, vomiting, diarrhea, chest pain, shortness of breath, paroxysmal nocturnal dyspnea, orthopnea, pedal edema or urinary symptoms. She has no history of coronary artery disease, CVA, TIA, carotid disease or history cancer. She was on MACKENZIE inhibitor in the past which was taken off and her serum creatinine went over 2. Her last serum creatinine was 1.7. [facility] Medical History Kidney stones Surgical History H/O lithotripsy Family History Father Lung cancer Social History Household Members Other:: lives alone in apartment, no work, no children, 1 sister and brother Housing: Apartment Do you presently have visiting nurse or other home services: No Alcohol intake: never Patient Tobacco Use Status: Never used Tobacco e-Cigarette/Vaping Use: Never Used service: No Current occupational status: retired Cognitive needs: No Hearing needs: No Vision needs: Yes Review of Systems Const All systems reviewed & are unremarkable except as noted in HPI and below Physical Exam Vital Signs: Last Vital Signs Pulse 69 04/16/24 13:51 BP 120/70 04/16/24 13:51 Pulse Ox 98 04/16/24 13:51 Oxygen Delivery Method Room Air 04/16/24 13:51 BMI result Body Mass Index 30.6 Const General: comfortable and no acute distress Orientation/consciousness: patient oriented x3 HEENT Head: Yes normocephalic Mouth: Normal oral and palatal mucosa present Eyes EOM: EOMs intact bilaterally Neck Neck: Yes supple Resp Auscultation: clear to auscultation bilaterally Cardio Jugular venous distension: no JVD Rate: regular rate GI Palpation (GI): Soft to palpation Auscultation: normal bowel sounds General: Yes no CVA tenderness Back/Spine/Pelvis Back: no CVA tenderness Skin General skin exam: no rashes or lesions noted Neuro General: patient oriented x3 and moves all extremities Extrem General: Yes no pedal edema Results Reviewed Nephrology Results: Hgb 13.8 g/dl (12.0-16.0) 04/08/24 WBC 8.1 X10*3/uL (4.8-10.8) 04/08/24 Plt Count 228 X10*3/uL (160-400) 04/08/24 Sodium 137 mmol/L (135-145) 04/08/24 Potassium 4.1 mmol/L (3.3-5.1) 04/08/24 Chloride 107 mmol/L (96-108) 04/08/24 Carbon Dioxide 22 mmol/L (22-29) 04/08/24 BUN 35 mg/dL (9-16) H 04/08/24 Creatinine 1.76 mg/dL (0.5-1.4) H 04/08/24 Calcium 9.4 mg/dL (8.4-10.2) 12/25/23 Phosphorus 3.5 mg/dL (2.7-4.5) 12/25/23 PTH Intact 65.0 pg/mL (8.7-77.1) 12/25/23 Urine Protein Negative mg/dL (Neg-Trace) 02/03/23 Urine Creatinine 87.48 mg/dL 12/25/23 Protein/Creatinin Ratio 0.10 (<0.2) 02/03/23 Renal US 02/20/23 Assessment & Plan Assessment & Plan (1) Right flank pain: Code(s): R10.9 - Unspecified abdominal pain Category: Medical (2) Stage 3b chronic kidney disease: Code(s): N18.32 - Chronic kidney disease, stage 3b Category: Medical (3) Hydronephrosis of right kidney: Code(s): N13.30 - Unspecified hydronephrosis Category: Medical (4) Hypertension: Code(s): I10 - Essential (primary) hypertension Category: Medical Qualifiers: Hypertension type: secondary to other renal disorders Qualified Code(s): I15.1 - Hypertension secondary to other renal disorders Billy Fonseca has 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 She has an angiolipoma which I shall monitor by follow-up . Her blood pressure is at goal. Her renal functions are stable. She is on Jardiance. She was on lisinopril which was stopped when her serum creatinine went over 2. She is currently on amlodipine and serum creatinine has settled to baseline with maintenance of blood pressure at goal. She does not take any nonsteroidal anti-inflammatories and maintain good hydration. I did not make any medication changes. Follow-up USS and lab work ordered and answered all questions. Orders: Orders Creatinine Today I15.1 - Hypertension secondary to other renal disorders, N13.30 - Unspecified hydronephrosis, N18.32 - Chronic kidney disease, stage 3b, R10.9 - Unspecified abdominal pain US renal BI Today R10.9 - Unspecified abdominal pain Blood Urea Nitrogen Today I15.1 - Hypertension secondary to other renal disorders, N13.30 - Unspecified hydronephrosis, N18.32 - Chronic kidney disease, stage 3b, R10.9 - Unspecified abdominal pain Electrolytes Today I15.1 - Hypertension secondary to other renal disorders, N13.30 - Unspecified hydronephrosis, N18.32 - Chronic kidney disease, stage 3b, R10.9 - Unspecified abdominal pain Coding Level of Care Code Est Pt Level 4 (71864) Diagnoses Right flank pain R10.9 Stage 3b chronic kidney disease N18.32 Hydronephrosis of right kidney N13.30 Hypertension secondary to other renal disorders I15.1 Hypertension type: secondary to other renal disorders
== END 2024-04-16 14:28 | disposition home or self-care (01) ==
PROVIDERS: PCP Internal Medicine; Visit Provider Internal Medicine Nephrology
DX: R10.9 Unspecified abdominal pain (principal); N18.32 Chronic kidney disease, stage 3b; N13.30 Unspecified hydronephrosis; I15.1 Hypertension secondary to other renal disorders
CPT/HCPCS: 99214

== ENCOUNTER → 2024-04-16 13:09 | Outpatient (BNVA) | payer MEDICARE, SELFPAY | PROVIDERS: PCP Internal Medicine; Visit Provider Internal Medicine Nephrology | DX: I15.1 Hypertension secondary to other renal disorders (principal); N18.32 Chronic kidney disease, stage 3b; N13.30 Unspecified hydronephrosis; R10.9 Unspecified abdominal pain | CPT/HCPCS: 99212 ==

== ENCOUNTER 2024-04-26 13:23 | Outpatient (REF) | payer MEDICARE, SELFPAY ==
--- NOTE | ~2024-04-26 | US_ITS ---
EXAMINATION: US RETROPERITONEAL COMPLETE (RENAL) CLINICAL INFORMATION: Abdominal pain. COMPARISON: 02/20/2023 TECHNIQUE: Real-time imaging of the kidneys and bladder. FINDINGS: RIGHT KIDNEY: 14.4 x 7.7 x 10.9 cm (SAG x AP x TRV). The kidney is normal in size, contour, and echogenicity. Diffuse renal cortical thinning. Redemonstration of severe hydronephrosis. LEFT KIDNEY: 11.9 x 7.3 x 5.7 cm (SAG x AP x TRV). The kidney is normal in size, contour, and echogenicity. Renal cortical thickness is normal. No renal calculi or hydronephrosis. Echogenic circumscribed vascular mass in the upper pole measures 1.7 x 1.5 x 1.5 cm, slightly increased in prior study with probable internal calcifications. This appearance is atypical for a angiomyolipoma. US/US renal BI IMPRESSION: * Redemonstration of severe right hydronephrosis. * Echogenic circumscribed vascular mass in the upper pole of the left kidney measures 1.7 cm, slightly increased in prior study with probable internal calcifications. This appearance is atypical for a angiomyolipoma. Recommend further evaluation with CT or MR. renal protocol Electronically signed by: Celina Mahmood MD 04/26/2024 06:24 PM EDT
== END 2024-04-26 13:24 | disposition home or self-care (01) ==
LOC: HO.US 13:23
PROVIDERS: PCP Internal Medicine; Visit Provider Internal Medicine Nephrology
DX: R10.9 Unspecified abdominal pain (principal)
CPT/HCPCS: 76775

== ENCOUNTER 2024-06-28 12:11 | Outpatient (AMB) | payer MEDICARE, SELFPAY ==
[2024-06-28 12:37] VITALS: BP 126/80; PULSE 68; O2SAT 98; BMI 30.2
--- NOTE | 2024-06-28 12:37 | MHC.PC.OV ---
Vital Signs 06/28/24 12:37 Height 5 ft 5.8 in Weight 186 lb BMI 30.2 BP 126/80 Blood Pressure Location Lt brachial Position Sitting Pulse 68 Pulse Source Pulse Oximeter Pulse Oximetry (%) 98 Oxygen Delivery Method Room Air Intake Visit Reasons: 6 month follow up Intake Note: Pt is here today for 6 months follow up visit. Allergies metformin Adverse Reaction (Intermediate, Verified 06/28/24 12:45) Diarrhea Medication List - Last Reconciled 06/28/24 by Loretta Kulkarni MD alcohol swabs (CareTouch Alcohol Prep Pad topical pads) 1 pad topical BID amlodipine 10 mg PO DAILY blood sugar diagnostic (FreeStyle Lite Strips) As directed blood-glucose meter (FreeStyle Lite Meter kit) As directed empagliflozin (Jardiance) 10 mg PO DAILY lancets (Lancets,Thin) As directed pravastatin 40 mg PO DAILY Tobacco use date assessed: 06/28/24 Fall risk assessment: No Falls in past year Last assessed Fall Risk: 06/28/24 Dental Screening Dental Screen Date: 10/27/23 HPI 6 month follow up HPI Details Patient presents for the follow-up on hypertension type 2 diabetes hyperlipidemia stable on current medications. She reports intermittent right lower chest sharp discomfort not positional. Patient denies fever chills cough pleurisy nausea vomiting or GI complaints. She had abdominal ultrasound to evaluate for right nephrolithiasis which was negative [facility] Medical History Kidney stones Surgical History H/O lithotripsy Family History Father Lung cancer Social History Household Members Other:: lives alone in apartment, no work, no children, 1 sister and brother Housing: Apartment Do you presently have visiting nurse or other home services: No Alcohol intake: never Patient Tobacco Use Status: Never used Tobacco e-Cigarette/Vaping Use: Never Used service: No Current occupational status: retired Cognitive needs: No Hearing needs: No Vision needs: Yes Questionnaire Thrive Questionnaire Date Thrive assessed: 10/27/23 SHORTY-7 AMB Questionnaire SHORTY-7 Date SHORTY - 7 assessed: 10/27/23 Source: Developed by Drs. Jagdish Bunn, Shawnee Bowers, Unruly Wright and colleagues, with an educational radha from [employer]. Review of Systems Const All systems reviewed & are unremarkable except as noted in HPI and below ENT Reports no additional complaints Card Reports no additional complaints Resp Reports no additional complaints GI Reports no additional complaints Reports no additional complaints Physical exam (Primary Care) Vital Signs: Last Vital Signs Pulse 68 06/28/24 12:37 BP 126/80 06/28/24 12:37 Pulse Ox 98 06/28/24 12:37 Oxygen Delivery Method Room Air 06/28/24 12:37 BMI result Body Mass Index 30.2 Tobacco/Smoking Status: Tobacco use Status Tobacco use date assessed 06/28/24 06/28/24 12:48 Patient Tobacco Use Status Never used Tobacco 06/28/24 12:48 e-Cigarette/Vaping Use Never Used 06/28/24 12:38 Thrive Assessment: Date of Thrive Assessment Date Thrive assessed 10/27/23 06/28/24 12:38 Const General: no acute distress HENMT Mouth: Normal oral and palatal mucosa present Resp Effort & Inspection: normal respiratory effort Auscultation: clear to auscultation bilaterally Cardio Rhythm: regular rhythm Heart sounds: S1 normal heart sound present and S2 normal heart sound present GI Inspection: Yes normal to inspection Palpation (GI): Soft to palpation Percussion: Yes normal to percussion Auscultation: normal bowel sounds Coding Level of Care Code Est Pt Level 4 (93055) Diagnoses Right flank pain R10.9 CKD (chronic kidney disease) stage 4, GFR 15-29 ml/min N18.4 Diabetes mellitus, new onset E11.9 Hypertension secondary to other renal disorders I15.1 Hypertension type: secondary to other renal disorders Assessment & Plan Assessment & Plan (1) Right flank pain: Code(s): R10.9 - Unspecified abdominal pain Category: Medical Plan: Obtain chest x-ray to evaluate for right lower chest pain (2) CKD (chronic kidney disease) stage 4, GFR 15-29 ml/min: Comment: Renal scan 02/21 right kidney no perfusion of function, left kidney moderately impaired perfusion and function no obstruction, renal ultrasound severe hydronephrosis on the right, 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 Code(s): N18.4 - Chronic kidney disease, stage 4 (severe) Category: Medical Plan: Follow-up with nephrology (3) Diabetes mellitus, new onset: Comment: A1c 5.8, on Jardiance 12/23 Code(s): E11.9 - Type 2 diabetes mellitus without complications Category: Medical Plan: Continue current medication check A1c (4) Hypertension: Code(s): I10 - Essential (primary) hypertension Category: Medical Qualifiers: Hypertension type: secondary to other renal disorders Qualified Code(s): I15.1 - Hypertension secondary to other renal disorders Plan: Continue current medications Orders: Orders Comprehensive [place]. Panel Fast 6 Months E11.9 - Type 2 diabetes mellitus without complications, I15.1 - Hypertension secondary to other renal disorders, N18.4 - Chronic kidney disease, stage 4 (severe), R10.9 - Unspecified abdominal pain Lipid Panel 6 Months E11.9 - Type 2 diabetes mellitus without complications, I15.1 - Hypertension secondary to other renal disorders, N18.4 - Chronic kidney disease, stage 4 (severe), R10.9 - Unspecified abdominal pain UA w Microscopic 6 Months E11.9 - Type 2 diabetes mellitus without complications, I15.1 - Hypertension secondary to other renal disorders, N18.4 - Chronic kidney disease, stage 4 (severe), R10.9 - Unspecified abdominal pain Microalbumin, Random (w Creat) 6 Months E11.9 - Type 2 diabetes mellitus without complications, I15.1 - Hypertension secondary to other renal disorders, N18.4 - Chronic kidney disease, stage 4 (severe), R10.9 - Unspecified abdominal pain Complete Blood Count Auto Diff 6 Months E11.9 - Type 2 diabetes mellitus without complications, I15.1 - Hypertension secondary to other renal disorders, N18.4 - Chronic kidney disease, stage 4 (severe), R10.9 - Unspecified abdominal pain Hemoglobin A1c 6 Months E11.9 - Type 2 diabetes mellitus without complications, I15.1 - Hypertension secondary to other renal disorders, N18.4 - Chronic kidney disease, stage 4 (severe), R10.9 - Unspecified abdominal pain XR chest 2V Today R07.9 - Chest pain, unspecified
== END 2024-06-28 13:25 | disposition home or self-care (01) ==
LOC: HO.HMCC 12:12
PROVIDERS: PCP Internal Medicine; Visit Provider Internal Medicine
DX: R10.9 Unspecified abdominal pain (principal); N18.4 Chronic kidney disease, stage 4 (severe); E11.9 Type 2 diabetes mellitus without complications; I15.1 Hypertension secondary to other renal disorders

== ENCOUNTER 2024-06-28 12:11 | Outpatient (REF) | payer MEDICARE, SELFPAY ==
--- NOTE | ~2024-06-28 | XR_ITS ---
EXAMINATION: XR CHEST 2 VIEWS CLINICAL INFORMATION: Abdominal pain. COMPARISON: Prior mammograms, most recently 04/14/2010. TECHNIQUE: Frontal and lateral views of the chest were obtained. FINDINGS: The heart, great vessels, pulmonary vasculature and mediastinum are normal. The lungs show no focal infiltrate, effusion or pneumothorax. There is stable minimal lingular chronic scar/subsegmental atelectasis. There is no acute osseous abnormality. There is multi-level thoracic spondylosis. XR/XR chest 2V IMPRESSION: No active cardiopulmonary disease. Electronically signed by: Calderon Monroy MD 07/26/2024 09:35 AM EST
== END 2024-06-28 12:12 | disposition home or self-care (01) ==
LOC: HO.HMGCX 12:11
PROVIDERS: PCP Internal Medicine; Visit Provider Internal Medicine
DX: R07.9 Chest pain, unspecified (principal); E78.5 Hyperlipidemia, unspecified; E11.22 Type 2 diabetes mellitus with diabetic chronic kidney disease; N18.4 Chronic kidney disease, stage 4 (severe); I15.1 Hypertension secondary to other renal disorders; R10.9 Unspecified abdominal pain
CPT/HCPCS: 71046; 99212

== ENCOUNTER 2024-06-30 12:13 | Outpatient (REF) | payer MEDICARE, SELFPAY ==
[2024-06-30 13:08] LABS: MANUAL DIFF FLAG NO
[2024-06-30 13:20] LABS: Basophils Absolute Auto 0.1 X10*3/uL (0.0-0.2); Eosinophils Absolute Auto 0.3 X10*3/uL (0.0-0.4); Eosinophils Percent Auto 3.5 % (0-4); Hematocrit 41.4 % (37.0-47.0); Imm Gran Abs Auto 0.03 X10*3/uL (0.00-0.03); Imm Gran Pct Auto 0.4 % (0.0-0.4); Lymphocytes Absolute Auto 1.8 X10*3/uL (1.2-4.9); Mean Corpuscular HGB Conc 33.8 g/dl (31.0-35.0); Mean Corpuscular Hemoglobin 30.4 pg (27.0-33.0); Mean Corpuscular Volume 89.8 fL (80.0-98.0); Mean Platelet Volume 11.9 fL (9.4-12.3); Monocytes Absolute Auto 0.5 X10*3/uL (0.1-1.2); Neutrophils Absolute Auto 5.4 x10*3/uL (2.0-8.3); Neutrophils Percent Auto 67.1 % (45-73); Platelet Count 261 X10*3/uL (160-400); Red Blood Count 4.61 X10*6/uL (4.20-5.50); Red Cell Distribution Width 13.8 % (11.0-16.0)
[2024-06-30 13:29] LABS: Estimated Average Glucose 120 mg/dL; Hemoglobin A1C 147.2174 umol/L; Hemoglobin A1c % 5.8 % (<6.0)
[2024-06-30 13:44] LABS: Creatinine Urine 138.64 mg/dL; Microalbum/Creatinine Ratio Ur 72.1 ug/mg cr (<30)
[2024-06-30 14:05] LABS: Alanine Aminotransferase 17 U/L (0-31); Albumin Level 4.2 g/dL (3.5-5.0); Alkaline Phosphatase 84 U/L (39-117); Anion Gap 15 (12-20); Aspartate Amino Transferase 48 U/L (5-31); Bilirubin Total 0.6 mg/dL (0.0-1.0); Blood Urea Nitrogen 35 mg/dL (9-16); Calcium 9.4 mg/dL (8.4-10.2); Carbon Dioxide 21 mmol/L (22-29); Chloride 106 mmol/L (96-108); Cholesterol 174 mg/dL (<200); Estimated Glomerular Filt Rate 30; Glucose Fasting 117 mg/dL (60-99); HDL Cholesterol 38 mg/dL (>40); LDL Cholesterol Calculated 109 mg/dL (<100); Potassium 4.3 mmol/L (3.3-5.1); Sodium 138 mmol/L (135-145); Triglycerides 137 mg/dL (<150)
== END 2024-06-30 12:14 | disposition home or self-care (01) ==
LOC: HO.HMGCLDS 12:13
PROVIDERS: PCP Internal Medicine; Visit Provider Internal Medicine
DX: N18.4 Chronic kidney disease, stage 4 (severe) (principal); E78.5 Hyperlipidemia, unspecified; E11.9 Type 2 diabetes mellitus without complications
CPT/HCPCS: 36415; 80053; 80061; 82043; 82570; 83036; 84443; 85025

== ENCOUNTER 2024-07-14 13:52 | Outpatient (AMB) | payer MEDICARE, SELFPAY ==
[2024-07-14 14:55] VITALS: BP 137/73; PULSE 68; BMI 30.4
--- NOTE | 2024-07-14 14:55 | A.OFFVIS_ITS ---
Vital Signs 3 07/14/24 14:55 Height 5 ft 5.8 in Weight 187 lb 6.287 oz BMI 30.4 BP 137/73 Blood Pressure Location Rt brachial Position Sitting Pulse 68 Intake Visit Reasons: colonoscopy Screenign Intake Note: New patient in office today for colonoscopy screening. CC: Patient denies having any GI symptoms or concerns today. Editor Managing Newspaper Required: No Accompanied by: Self / Same As Patient Allergies metformin Adverse Reaction (Intermediate, Verified 08/20/24 12:23) Diarrhea HPI HPI colonoscopy Screenign: Details: 68-year-old female here for preprocedural meeting to discuss a screening colonoscopy. She is referred by Loretta Kulkarni. PMX Hypertension High cholesterol Diabetes Nephrolithiasis CKD stage IV * SURGICAL HISTORY Lithotripsy CHolecystectomy * ALLERGIES Metformin * [employer] LABS: Laboratory Tests 06/30/24 12:18 WBC 8.0 Hgb 14.0 Hct 41.4 Plt Count 261 Estimated GFR 30 Total Bilirubin 0.6 AST 48 H ALT 17 Alkaline Phosphatase 84 TSH 2.00 TODAY'S VISIT This is her first colonoscopy. She denies any bowel or upper GI problems.. There are no prior problems with anesthesia or sedation. She denies any cardiac or respiratory problems. No ID problems There is no known FHX crc or polyps. [facility] Medical History (Updated 09/28/24 @ 18:18 by IRVING Licea) Renal mass Hypertension Colonoscopy refused Right flank pain Annual physical exam Pelvicaliectasis Epistaxis Kidney stones Encounter for removal of nasal packing Surgical History H/O lithotripsy Family History Mother Lung cancer Social History Household Members Other:: lives alone in apartment, no work, no children, 1 sister and brother Housing: Apartment Do you presently have visiting nurse or other home services: No Alcohol intake: never Patient Tobacco Use Status: Never used Tobacco e-Cigarette/Vaping Use: Never Used service: No Current occupational status: retired Cognitive needs: No Hearing needs: No Vision needs: Yes Review of Systems Const Denies fatigue, Denies fever(s), Denies night sweats, Denies poor appetite and Denies weight loss ENT Reports Normal hearing present, Denies dental pain, Denies dysphagia, Denies hearing loss, Denies mouth pain, Denies odynophagia, Denies throat swelling, Denies tongue swelling and Reports other (Dentition adequate) Card Reports no additional complaints Resp Reports no additional complaints GI Details: Denies abdominal pain, Denies melena, Denies bloating, Denies hematochezia, Denies constipation, Denies GI cramping, Denies dysphagia, Denies excessive flatus, Denies early satiety, Denies heartburn, Denies diarrhea, Denies nausea, Denies odynophagia, Denies vomiting and Denies hematemesis Skin/Breast Denies pruritus, Denies lesions, Denies rash and Denies jaundice Neuro Reports Normal hearing present and Denies Abnormal speech present Endo Denies fatigue Aller/Immun Denies throat swelling and Denies tongue swelling Physical Exam Vital Signs: Last Vital Signs Pulse 68 07/14/24 14:55 BP 137/73 07/14/24 14:55 BMI result Body Mass Index 30.4 Const General: cooperative, no acute distress, well developed and well groomed Nutritional Appearance: well nourished and obese Orientation/consciousness: oriented to person, oriented to place and oriented to time Limitations: No language barrier HEENT Head: Yes normocephalic and Yes atraumatic Eyes General: appearance normal, both eyes and all related structures Pupils: Equal, round and reactive pupils present Neck Neck: Yes normal visual inspection and Yes no lymphadenopathy Thyroid: Thyroid normal Resp Effort & Inspection: normal respiratory effort and able to speak in complete sentences Auscultation: clear to auscultation bilaterally Cardio Rate: regular rate Rhythm: regular rhythm Heart sounds: Normal, physiologic split S2 sound present Peripheral pulses: radial pulses present and posterior tibial pulses present GI Inspection: No distended, No Abdominal panniculus present, Yes obesity, Yes scar and Yes striae Palpation (GI): Soft to palpation, nontender, no guarding, not rigid and No hepatosplenomegaly present Percussion: Yes normal to percussion Auscultation: normal bowel sounds Rectal Exam - Female: deferred Abdomen image: 2 1. surgical scars 2. Skin General skin exam: no rashes or lesions noted, turgor normal, skin not dry, no jaundice, No spider nevi and no striae Rashes: no rashes Nails: normal Neuro General: oriented to person, oriented to place and oriented to time Cranial nerves: Yes Equal, round and reactive pupils present and Yes Normal hearing present Speech: No Abnormal speech present Extrem General: Yes normal to inspection, No clubbing, No cyanosis and No edema Psych Appearance: grossly normal and well kempt Mental Status: mental status grossly normal Speech and movement: Normal speech and movement present Affect: normal affect Attitude: cooperative Thought process: Normal thought process present and not confabulating Thought content: Normal thought content present Insight: Good insight present (Psych) Judgement: Good judgement present (Psych) Results Reviewed Results Reviewed: Laboratory Tests 06/30/24 12:18 WBC 8.0 Hgb 14.0 Hct 41.4 Plt Count 261 Estimated GFR 30 Total Bilirubin 0.6 AST 48 H ALT 17 Alkaline Phosphatase 84 TSH 2.00 Assessment & Plan Assessment & Plan (1) Pre-op examination: Code(s): Z01.818 - Encounter for other preprocedural examination Category: Medical (2) CKD (chronic kidney disease) stage 4, GFR 15-29 ml/min: Comment: Renal scan 02/21 right kidney no perfusion of function, left kidney moderately impaired perfusion and function no obstruction, renal ultrasound severe hydronephrosis on the right, 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 Code(s): N18.4 - Chronic kidney disease, stage 4 (severe) Category: Medical Plan This is her first colonoscopy. She denies any bowel or upper GI problems.. There are no prior problems with anesthesia or sedation. She denies any cardiac or respiratory problems. No ID problems There is no known FHX crc or polyps. Orders: Orders 2 Colonoscopy - GI Use Only 07/14/24 Z01.818 - Encounter for other preprocedural examination Medications: New 2 sodium,potassium,mag sulfates 17.5-3.13-1.6 gram (Suprep Bowel Prep Kit) 480 mL orally; FOR COLONOSCOPY PREP 354 mL 0RF Coding Level of Care Code New Pt Level 3 (70138) Diagnoses Pre-op examination Z01.818 CKD (chronic kidney disease) stage 4, GFR 15-29 ml/min N18.4
== END 2024-07-14 15:45 | disposition home or self-care (01) ==
PROVIDERS: PCP Internal Medicine; Visit Provider Nurse Practitioner
DX: Z01.818 Encounter for other preprocedural examination (principal); Z12.11 Encounter for screening for malignant neoplasm of colon; N18.4 Chronic kidney disease, stage 4 (severe)
CPT/HCPCS: 99024

== ENCOUNTER → 2024-07-14 13:52 | Outpatient (BNVA) | payer MEDICARE, SELFPAY | PROVIDERS: PCP Internal Medicine; Visit Provider Nurse Practitioner | DX: Z01.818 Encounter for other preprocedural examination (principal); I12.9 Hypertensive chronic kidney disease with stage 1 through stage 4 chronic kidney disease, or unspecified chronic kidney disease; E11.22 Type 2 diabetes mellitus with diabetic chronic kidney disease; N18.4 Chronic kidney disease, stage 4 (severe); E78.00 Pure hypercholesterolemia, unspecified | CPT/HCPCS: 99212 ==

== ENCOUNTER 2024-08-20 12:21 | Outpatient (AMB) | payer MEDICARE, SELFPAY ==
--- NOTE | 2024-08-20 12:22 | HO.NEPHOV_ITS ---
Vital Signs 08/20/24 12:23 Height 5 ft 5.8 in Weight 186 lb 8 oz BMI 30.3 BP 120/70 Blood Pressure Location Lt brachial Position Sitting Pulse 62 Pulse Source Pulse Oximeter Pulse Oximetry (%) 99 Oxygen Delivery Method Room Air Intake Visit Reasons: CKD-LVM Resource Recovery Specialist Required: No Accompanied by: Self / Same As Patient Allergies metformin Adverse Reaction (Intermediate, Verified 08/20/24 12:23) Diarrhea HPI Comments Details: Marian was seen in follow-up of her chronic kidney disease and hypertension. Her right kidney had been hydronephrotic with 0% function by nuclear scan. She has a diabetic. She has been on Jardiance . She has history of renal stones . Her last ultrasound showed echogenic circumscribed vascular mass in the upper pole of the left kidney( 1.7 cm), which has slightly increased in size. This finding is atypical for angiomyolipoma. She has no history of coronary artery disease, CVA, TIA, carotid disease or history cancer. She was on MACKENZIE inhibitor in the past which was taken off when her serum creatinine went over 2. Her last serum creatinine was 1.7 PFS Medical History (Updated 09/01/24 @ 12:06 by Antonio Herman MD) Right flank pain Annual physical exam Pelvicaliectasis Epistaxis Kidney stones Encounter for removal of nasal packing Surgical History H/O lithotripsy Family History Mother Lung cancer Social History Household Members Other:: lives alone in apartment, no work, no children, 1 sister and brother Housing: Apartment Do you presently have visiting nurse or other home services: No Alcohol intake: never Patient Tobacco Use Status: Never used Tobacco e-Cigarette/Vaping Use: Never Used service: No Current occupational status: retired Cognitive needs: No Hearing needs: No Vision needs: Yes Review of Systems Const All systems reviewed & are unremarkable except as noted in HPI and below Physical Exam Vital Signs: Last Vital Signs Pulse 62 08/20/24 12:23 BP 120/70 08/20/24 12:23 Pulse Ox 99 08/20/24 12:23 Oxygen Delivery Method Room Air 08/20/24 12:23 BMI result Body Mass Index 30.3 Const General: comfortable and no acute distress Orientation/consciousness: patient oriented x3 HEENT Head: Yes normocephalic Mouth: Normal oral and palatal mucosa present Eyes EOM: EOMs intact bilaterally Neck Neck: Yes supple Resp Auscultation: clear to auscultation bilaterally Cardio Jugular venous distension: no JVD Rate: regular rate GI Palpation (GI): Soft to palpation Auscultation: normal bowel sounds General: Yes no CVA tenderness Back/Spine/Pelvis Back: no CVA tenderness Skin General skin exam: no rashes or lesions noted Neuro General: patient oriented x3 and moves all extremities Extrem General: Yes no pedal edema Results Reviewed Nephrology Results: Hgb 14.0 g/dl (12.0-16.0) 06/30/24 WBC 8.0 X10*3/uL (4.8-10.8) 06/30/24 Plt Count 261 X10*3/uL (160-400) 06/30/24 Sodium 138 mmol/L (135-145) 06/30/24 Potassium 4.3 mmol/L (3.3-5.1) 06/30/24 Chloride 106 mmol/L (96-108) 06/30/24 Carbon Dioxide 21 mmol/L (22-29) L 06/30/24 BUN 35 mg/dL (9-16) H 06/30/24 Creatinine 1.71 mg/dL (0.5-1.4) H 06/30/24 Calcium 9.4 mg/dL (8.4-10.2) 06/30/24 Urine Creatinine 138.64 mg/dL 06/30/24 Renal US 04/26/24 Assessment & Plan Assessment & Plan (1) Stage 3b chronic kidney disease: Code(s): N18.32 - Chronic kidney disease, stage 3b Category: Medical (2) Hydronephrosis of right kidney: Code(s): N13.30 - Unspecified hydronephrosis Category: Medical (3) Renal mass: Code(s): N28.89 - Other specified disorders of kidney and ureter Category: Medical Plan 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 Her blood pressure is at goal. Her renal functions are stable. She is on Jardiance. She was on lisinopril which was stopped when her serum creatinine went over 2. She is currently on amlodipine and serum creatinine has settled to baseline with maintenance of blood pressure at goal. She does not take any nonsteroidal anti- inflammatories and maintain good hydration. Her last ultrasound showed echogenic circumscribed vascular mass in the upper pole of the left kidney( 1.7 cm), which has slightly increased in size. This finding is atypical for angiomyolipoma. So I referred her back to Urology. I did not make any medication changes. Follow- up lab work ordered and answered all questions Orders: Orders Electrolytes 7 Months N18.32 - Chronic kidney disease, stage 3b Creatinine 7 Months N18.32 - Chronic kidney disease, stage 3b Blood Urea Nitrogen 7 Months N18.32 - Chronic kidney disease, stage 3b Protein Creatinine Ratio, Ur 7 Months N18.32 - Chronic kidney disease, stage 3b Coding Level of Care Code Est Pt Level 4 (74174) Diagnoses Stage 3b chronic kidney disease N18.32 Hydronephrosis of right kidney N13.30 Renal mass N28.89
[2024-08-20 12:23] VITALS: BP 120/70; PULSE 62; O2SAT 99; BMI 30.3
== END 2024-08-20 12:35 | disposition home or self-care (01) ==
LOC: HO.HKA 12:21
PROVIDERS: PCP Internal Medicine; Visit Provider Internal Medicine Nephrology
DX: N18.32 Chronic kidney disease, stage 3b (principal); N13.30 Unspecified hydronephrosis; N28.89 Other specified disorders of kidney and ureter
CPT/HCPCS: 99214

== ENCOUNTER → 2024-08-20 12:21 | Outpatient (BNVA) | payer MEDICARE, SELFPAY | PROVIDERS: PCP Internal Medicine; Visit Provider Internal Medicine Nephrology | DX: I12.9 Hypertensive chronic kidney disease with stage 1 through stage 4 chronic kidney disease, or unspecified chronic kidney disease (principal); N18.32 Chronic kidney disease, stage 3b; N13.30 Unspecified hydronephrosis; N28.89 Other specified disorders of kidney and ureter | CPT/HCPCS: 99212 ==

== ENCOUNTER 2024-12-14 11:55 | Outpatient (REF) | payer MEDICARE, SELFPAY ==
[2024-12-14 13:27] LABS: MANUAL DIFF FLAG NO
[2024-12-14 13:38] LABS: Basophils Percent Auto 0.5 % (0-2); Eosinophils Absolute Auto 0.3 X10*3/uL (0.0-0.4); Eosinophils Percent Auto 3.3 % (0-4); Hematocrit 39.1 % (37.0-47.0); Hemoglobin 13.2 g/dl (12.0-16.0); Imm Gran Abs Auto 0.02 X10*3/uL (0.00-0.03); Imm Gran Pct Auto 0.3 % (0.0-0.4); Lymphocytes Absolute Auto 1.8 X10*3/uL (1.2-4.9); Lymphocytes Percent Auto 23.2 % (20-40); Mean Corpuscular HGB Conc 33.8 g/dl (31.0-35.0); Mean Corpuscular Hemoglobin 30.3 pg (27.0-33.0); Mean Corpuscular Volume 89.9 fL (80.0-98.0); Mean Platelet Volume 12.1 fL (9.4-12.3); Monocytes Absolute Auto 0.5 X10*3/uL (0.1-1.2); Monocytes Percent Auto 7.2 % (2-11); Neutrophils Absolute Auto 4.9 x10*3/uL (2.0-8.3); Neutrophils Percent Auto 65.5 % (45-73); Platelet Count 222 X10*3/uL (160-400); Red Blood Count 4.35 X10*6/uL (4.20-5.50); Red Cell Distribution Width 13.2 % (11.0-16.0); White Blood Count 7.5 X10*3/uL (4.8-10.8)
[2024-12-14 13:44] LABS: Estimated Average Glucose 120 mg/dL; Hemoglobin A1C 140.6876 umol/L; Hemoglobin A1c % 5.8 % (<6.0); Total Hemoglobin (HGBA1C) 3499.1425 umol/L
[2024-12-14 14:24] LABS: Anion Gap 11 (12-20)
[2024-12-14 14:25] LABS: Alanine Aminotransferase 13 U/L (0-31); Albumin Level 3.9 g/dL (3.5-5.0); Aspartate Amino Transferase 42 U/L (5-31); Bilirubin Total 0.5 mg/dL (0.0-1.0); Blood Urea Nitrogen 35 mg/dL (9-16); Calcium 9.4 mg/dL (8.4-10.2); Carbon Dioxide 23 mmol/L (22-29); Chloride 108 mmol/L (96-108); Cholesterol 165 mg/dL (<200); Estimated Glomerular Filt Rate 35; Glucose Fasting 102 mg/dL (60-99); HDL Cholesterol 41 mg/dL (>40); LDL Cholesterol Calculated 106 mg/dL (<100); Potassium 4.3 mmol/L (3.3-5.1); Sodium 138 mmol/L (135-145); Total Protein 7.6 g/dL (6.5-8.0); Triglycerides 91 mg/dL (<150)
[2024-12-14 14:29] LABS: Creatinine Urine 120.58 mg/dL; Microalbum/Creatinine Ratio Ur 90.3 ug/mg cr (<30)
--- OUTSIDE RECORDS SUMMARY | 2024-12-14 14:44 | XMS_ITS | Clinical Summary ---
Author Organization [facility] Address [address] [place] [address] Phone Care Team Providers Care Industrial Sociologist Name Role Phone Loretta Kulkarni MD Primary Care Provider [phone] Allergies No known active allergies Medications amLODIPine (NORVASC) 10 MG tablet Take 10 mg by mouth 1 (one) time each day 12/30/2022 Active Januvia 100 MG tablet Take 100 mg by mouth 1 (one) time each day 12/30/2022 Active pravastatin (PRAVACHOL) 40 MG tablet Take 40 mg by mouth 1 (one) time each day 11/06/2022 Active Active Problems Problem Noted Date Diagnosed Date Chronic kidney disease, stage 4 (severe) 023 Stage 3b chronic kidney disease 01/29/2023 Hypertension 01/29/2023 Family History Medical History Relation Comments Heart disease Father Cancer Mother Lung Cancer Relation Status Comments Father Mother Social History Tobacco Use Types Packs/Day Years Used Date Smoking Tobacco: Never Smokeless Tobacco: Never Tobacco Cessation:Counseling Given: Not Answered Alcohol Use Standard Drinks/Week Comments Never 0 (1 standard drink = 0.6 oz pur e alcohol) Comments Unknown Sex and Gender Information Value Date Recorded Sex Assigned at Not on file Legal Sex Female 11:07 AM EST Gender Identity Not on file Sexual Orientation Not on file Last Filed Vital Signs Vital Sign Reading Time Taken Comments Blood Pressure 138/80 04/23/2023 3:05 PM EDT Pulse 64 04/23/2023 3:05 PM EDT Temperature - - Respiratory Rate - - Oxygen Saturation - - Inhaled Oxygen Concentration - - Weight 83.8 kg (184 lb 12.8 oz) 04/23/2023 3:05 PM EDT Height - - Body Mass Index - - Plan of Treatment Health Maintenance Due Date Last Done Comments Breast Cancer Screening 1955 Pneumococcal Vaccine: 50+ Ye ars (1 of 2 - PCV) 1961 Colorectal Cancer Screening: Annual FOBT 2004 Colorectal Cancer Screening: Colonoscopy 2004 Colorectal Cancer Screening: Sigmoidoscopy 2004 Influenza Vaccine (Season Ended) 2025 Hepatitis B Vaccine Aged Out No longe r eligible based on patient's age to complete this topic Insurance Medicare Medicare Care Teams Industrial Sociologist Relationship Specialty Start Date End Date Loretta Kulkarni MD 1961 [place] [address] PCP - General Internal Medicine 10/14/22
[2024-12-14 17:22] LABS: Alkaline Phosphatase 86 U/L (39-117)
== END 2024-12-14 11:56 | disposition home or self-care (01) ==
LOC: HO.HMGCLDS 11:55
PROVIDERS: PCP Internal Medicine; Visit Provider Internal Medicine
DX: R10.9 Unspecified abdominal pain (principal); N18.4 Chronic kidney disease, stage 4 (severe); E11.9 Type 2 diabetes mellitus without complications; I15.1 Hypertension secondary to other renal disorders
CPT/HCPCS: 36415; 80053; 80061; 82043; 82570; 83036; 85025

== ENCOUNTER 2024-12-21 13:13 | Outpatient (AMB) | payer MEDICARE, SELFPAY ==
--- NOTE | 2024-12-21 14:22 | A.OFFVIS_ITS ---
Intake Vital Signs 12/21/24 14:34 Height 5 ft 8 in Weight 186 lb BMI 28.3 BP 118/70 Blood Pressure Location Rt brachial Position Sitting Respiration 18 Pulse 78 Pulse Source Pulse Oximeter Pulse Oximetry (%) 95 Oxygen Delivery Method Room Air Intake Visit Reasons: SWV [id number] Allergies metformin Adverse Reaction (Intermediate, Verified 12/21/24 14:35) Diarrhea Medication List - Last Reconciled 12/21/24 by Loretta Kulkarni MD alcohol swabs (CareTouch Alcohol Prep Pad topical pads) 1 pad topical BID amlodipine 10 mg PO DAILY blood sugar diagnostic (FreeStyle Lite Strips) As directed blood-glucose meter (FreeStyle Lite Meter kit) As directed dapagliflozin propanediol (Farxiga) 5 mg PO DAILY lancets (Lancets,Thin) As directed pravastatin 40 mg PO DAILY sodium,potassium,mag sulfates 17.5-3.13-1.6 gram (Suprep Bowel Prep Kit) 480 mL orally; FOR COLONOSCOPY PREP HPI SWV G0439 HPI Details Initiated the conversation about Advanced Directives. Advanced Directives help? patients prepare for current and future decisions about their medical treatment? and place of care. Discussed with patient that it is a process where a patients? current condition and prognosis are reviewed, their wishes for information? regarding their illness are elicited, and likely medical dilemmas are presented? and options discussed. The form can be amended as needed, reviewed yearly and? make changes as needed IPPE/AWV ? year old presents? for her ? Annual? Wellness Visit, initial visit.? Medical / Social History Reviewed? Past Medical History ?Yes? . ? [place]? of Care / Care Team list updated ?Yes . ? Surgical/Hospitalization? History ?Yes . ? Current Medications? (including OTC and supplements) ?Yes . ? Family History ?Yes? . ? Tobacco? Control form ?Yes . ? AUDIT-C (Alcohol use) form? ?Yes . ? Illicit drug use in Social? History ?Yes . ? Current diagnosis of? depression? ?No ? Appropriate PHQ2/PHQ9? completed ?Yes . ? Data entered by ?Medical? Telecom Sales Consultant and reviewed by provider ? Fall Risk ? Fall? History? Have you had any falls with? injury in the past year? ?No . ? Have you had two or more? falls in the past year? ?No . ? Fall Risk Assessment: ?No? falls in the past year . ? HRA filled out by? the patient, reviewed by Provider and scanned. ? IPPE/AWV ? Balance? [place]? ?Yes . ? Tandem? walk ?Yes . ? Walk and? Turn ?Yes . ? Rise from? sit to stand ?Yes . ?Vision? Corrective? lens ?Yes ? Vision? screen ? Up-to-date, has an appointment [] for vision? screening and glaucoma screening ?Hearing? Whisper? test ?pass .? Initiated the conversation about Advanced Directives. Advanced Directives help? patients prepare for current and future decisions about their medical treatment? and place of care. Discussed with patient that it is a process where a patients? current condition and prognosis are reviewed, their wishes for information? regarding their illness are elicited, and likely medical dilemmas are presented? and options discussed. The form can be amended as needed, reviewed yearly and? make changes as needed Written? Plan?Completed. See Patient? Documents. [facility] Medical History (Updated 12/21/24 @ 15:15 by Loretta Kulkarni MD) Annual physical exam Renal mass Hypertension Colonoscopy refused Right flank pain Pelvicaliectasis Epistaxis Kidney stones Encounter for removal of nasal packing Surgical History H/O lithotripsy Family History Mother Lung cancer Social History Household Members Other:: lives alone in apartment, no work, no children, 1 sister and brother Housing: Apartment Do you presently have visiting nurse or other home services: No Alcohol intake: never Patient Tobacco Use Status: Never used Tobacco e-Cigarette/Vaping Use: Never Used service: No Current occupational status: retired Cognitive needs: No Hearing needs: No Vision needs: Yes Questionnaire Medicare Wellness Checkup [age] What gender do you identify with?: female During the past 4 weeks, how much have you been bothered by emotional problems such as feeling anxious, depressed, irritable, sad or downhearted, and blue?: not at all During the past 4 weeks, has your physical & emotional health limited your social activities with family, friends, neighbors, or groups?: not at all During the past 4 weeks, how much bodily pain have you generally had?: very mild pain During the past 4 weeks, was someone available to help you if you needed & wanted help?: no, not at all During the past 4 weeks, what was the hardest physical activity you could do for at least 2 minutes?: heavy Can you get to places out of walking distance without help? (For eg., can you travel alone on buses, taxis or drive your car?): Yes Can you go shopping for groceries or clothes without someone's help?: Yes Can you prepare your own meals?: Yes Can you do your housework without help?: Yes Because of any health problems, do you need the help of another person with your personal care needs such as eating, bathing, dressing or getting around the house?: No Can you handle your own money without help?: Yes During the past 4 weeks, how would you rate your health in general?: good During the past 4 weeks how have things been going for you?: pretty well Are you having difficulties driving your car?: not applicable, I don't use a car Do you always fasten your seat belt when you are in a car?: yes, usually During past 4 weeks, have you been bothered by the following: never: Falling or dizzy when standing up, Sexual problems?, Trouble eating well?, Teeth or denture problems? and Problems using the telephone? and sometimes: Tiredness or fatigue? Have you fallen 2 or more times in the past year?: No Are you afraid of falling?: No Are you a smoker?: no During the past 4 weeks, how many drinks of wine, beer, or other alcoholic beverages did you have?: no alcohol at all Do you exercise for about 20 minutes 3 or more times a week?: yes, some of the time Have you been given information to help with the following?: no: Hazards in your house that might hurt you? and no: Keeping track of your medications? How often do you have trouble taking medicines the way you have been told to take them?: I always take medicine as prescribed How confident are you that you can control & manage most of your health problems?: very confident What is your race?: White Mini Mental State Exam (MMSE) Orientation What is the (year) (season) (date) (day) (month)?: year, season, date, day and month Where are we (state) (county) (town or city) (hospital) (floor)?: state, county, town or city, hospital/clinic and floor Registration Name of 3 unrelated objects clearly and slowly, then ask patient to repeat all 3 of them. (1st repeat determines score. Make sure they can repeat all three): object 1, object 2 and object 3 Attention & Calculation (CHOOSE ONE) Spell WORLD backwards (DLROW): 5 letters Recall Ask patient to repeat the 3 items from question #3.: object 1, object 2 and object 3 Language Show patient a wristwatch & ask what it is. Repeat for pencil.: watch and pencil Ask the patient to repeat the phrase 'No ifs, ands, or buts' after you.: correct Ask the patient to 'take a piece of paper with their right hand' 'fold paper in half' 'place paper on floor': take paper in right hand, fold paper in half and place paper on floor Print the sentence 'CLOSE YOUR EYES' on a piece. If patient actually closes eyes then score.: followed written direction Give patient a blank piece of paper & ask to write a sentence. Score if it contains a noun & verb.: sentence contains subject and verb Score Score: 29 PHQ-9 Over the last 2 weeks, how often have you been bothered by any of the following problems? 1. Little interest or pleasure in doing things: not at all 2. Feeling down, depressed, or hopeless: not at all 3. Trouble falling or staying asleep, or sleeping too much: not at all 4. Feeling tired or having little energy: not at all 5. Poor appetite or overeating: not at all 6. Feeling bad about yourself - or that you are a failure or have let yourself or your family down: not at all 7. Trouble concentrating on things, such as reading the newspaper or watching television: not at all 8. Moving or speaking so slowly that other people could have noticed. Or the opposite - being so fidgety or restless that you have been moving around a lot more than usual: not at all 9. Thoughts that you would be better off or of hurting yourself in some way: not at all Total score: 0 Depression Screening Interpretation: Negative Depression Screening Done: Yes 41807 - PHQ-9 Billing: Yes Source: Developed by Drs. Jagdish Bunn, Shawnee Bowers, Unruly Wright and colleagues, with an educational radha from [employer]. Review of Systems Const All systems reviewed & are unremarkable except as noted in HPI and below Reports no additional complaints Eyes Reports no additional complaints ENT Reports no additional complaints Card Reports no additional complaints Resp Reports no additional complaints GI Reports no additional complaints Reports no additional complaints Physical Exam Vital Signs: Last Vital Signs Pulse 78 12/21/24 14:34 Resp 18 12/21/24 14:34 BP 118/70 12/21/24 14:34 Pulse Ox 95 12/21/24 14:34 Oxygen Delivery Method Room Air 12/21/24 14:34 BMI result Body Mass Index 28.3 Const General: no acute distress Eyes General: appearance normal, both eyes and all related structures Neck Neck: Yes no lymphadenopathy and Yes supple Resp Effort & Inspection: normal respiratory effort Auscultation: clear to auscultation bilaterally Cardio Rhythm: regular rhythm Heart sounds: S1 normal heart sound present and S2 normal heart sound present GI Inspection: Yes normal to inspection Palpation (GI): Soft to palpation Percussion: Yes normal to percussion Auscultation: normal bowel sounds Extrem General: Yes no clubbing, cyanosis or edema Assessment & Plan Assessment & Plan (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, referred to Urology by nephrology Code(s): D17.71 - Benign lipomatous neoplasm of kidney Plan: Patient will follow-up with Urology and nephrology (2) Hydronephrosis of right kidney: Comment: non functioning kidney, nuclear scan 01/2023 Code(s): N13.30 - Unspecified hydronephrosis Plan: Follow-up with nephrology (3) CKD (chronic kidney disease) stage 4, GFR 15-29 ml/min: Comment: Renal scan 02/21 right kidney no perfusion of function, left kidney moderately impaired perfusion and function no obstruction, renal ultrasound severe hydronephrosis on the right, left kidney 1.5 cm angiomyolipoma stable since 2018. Code(s): N18.4 - Chronic kidney disease, stage 4 (severe) Plan: Avoid nephrotoxins monitor renal function (4) Hyperlipidemia: Code(s): E78.5 - Hyperlipidemia, unspecified Plan: Continue statin (5) Diabetes mellitus, new onset: Comment: A1c 5.8, on Jardiance 12/23, patient has stopped Jardiance in October 2024 because of high prize Code(s): E11.9 - Type 2 diabetes mellitus without complications Plan: Farxiga script sent to the pharmacy. ADA diet discussed with the patient. Follow-up in 4 months with fasting labs before (6) Hypertension: Comment: Hyperkalemia on Lisinopril Code(s): I10 - Essential (primary) hypertension Plan: Controlled on amlodipine (7) Annual physical exam: Code(s): Z00.00 - Encounter for general adult medical examination without abnormal findings Plan: Well-balanced diet regular physical activity discussed with the patient. She is up-to-date with the mammogram and is waiting for appointment with GI for colonoscopy Orders: Orders Hemoglobin A1c 4 Months E11.9 - Type 2 diabetes mellitus without complications, I10 - Essential (primary) hypertension, N18.4 - Chronic kidney disease, stage 4 (severe) Lipid Panel 4 Months E11.9 - Type 2 diabetes mellitus without complications, I10 - Essential (primary) hypertension, N18.4 - Chronic kidney disease, stage 4 (severe) Complete Blood Count Auto Diff 4 Months E11.9 - Type 2 diabetes mellitus without complications, I10 - Essential (primary) hypertension, N18.4 - Chronic kidney disease, stage 4 (severe) Microalbumin, Random (w Creat) 4 Months E11.9 - Type 2 diabetes mellitus without complications, I10 - Essential (primary) hypertension, N18.4 - Chronic kidney disease, stage 4 (severe) Comprehensive [place]. Panel Fast 4 Months E11.9 - Type 2 diabetes mellitus without complications, I10 - Essential (primary) hypertension, N18.4 - Chronic kidney disease, stage 4 (severe) Medications: New dapagliflozin propanediol (Farxiga) 5 mg PO DAILY 90 tabs 3RF Quality Reporting (2019) Depression/Bipolar (159/160/161/177) PHQ-9: Total score: 0 Coding Level of Care Code Medicare Subsequent (G0439) Diagnoses Angiomyolipoma of kidney D17.71 Hydronephrosis of right kidney N13.30 CKD (chronic kidney disease) stage 4, GFR 15-29 ml/min N18.4 Hyperlipidemia E78.5 Diabetes mellitus, new onset E11.9 Hypertension I10 Annual physical exam Z00.00 CPT Codes Advance Care Planning - Advance Care Planning discussion: On file, no changes ([id number]) Advance Care Planning - Time spent: 1-15 minutes, on File ([id number]) Additional Codes PHQ-9 - 67569 - PHQ-9 Billing: Yes ([id number]) Advance Care Planning Advance Care Planning discussion: On file, no changes Forms completed: Health Care Proxy Time spent: 1-15 minutes, on File
[2024-12-21 14:34] VITALS: BP 118/70; PULSE 78; RESP 18; O2SAT 95; BMI 28.3
--- OUTSIDE RECORDS SUMMARY | 2024-12-21 15:42 | XMS_ITS | Clinical Summary ---
Author Organization [facility] Address [address] [place] [address] Phone Care Team Providers Care Runner Worker Name Role Phone Loretta Kulkarni MD Primary Care Provider [phone] Allergies No known active allergies Medications amLODIPine [...] Ye ars (1 of 2 - PCV) 1974 Colorectal Cancer Screening: Annual FOBT 2004 Colorectal Cancer Screening: Colonoscopy 2004 Colorectal Cancer Screening: Sigmoidoscopy 2004 Influenza Vaccine (Season Ended) 2025 Hepatitis B Vaccine Aged Out No longe r eligible based on patient's age to complete this topic Insurance Medicare Medicare Care Teams Runner Worker Relationship Specialty Start Date End Date Loretta Kulkarni MD [address] [place] [address] PCP - General Internal Medicine 10/14/22
== END 2024-12-21 14:52 | disposition home or self-care (01) ==
LOC: HO.HMCC 13:14
PROVIDERS: PCP Internal Medicine; Visit Provider Internal Medicine
DX: Z00.00 Encounter for general adult medical examination without abnormal findings (principal); N18.4 Chronic kidney disease, stage 4 (severe); I12.9 Hypertensive chronic kidney disease with stage 1 through stage 4 chronic kidney disease, or unspecified chronic kidney disease; E11.69 Type 2 diabetes mellitus with other specified complication; D17.71 Benign lipomatous neoplasm of kidney; N13.30 Unspecified hydronephrosis; E78.5 Hyperlipidemia, unspecified

== ENCOUNTER → 2024-12-21 13:13 | Outpatient (BNVA) | payer MEDICARE, SELFPAY | PROVIDERS: PCP Internal Medicine; Visit Provider Internal Medicine | DX: Z00.00 Encounter for general adult medical examination without abnormal findings (principal); I12.9 Hypertensive chronic kidney disease with stage 1 through stage 4 chronic kidney disease, or unspecified chronic kidney disease; E11.22 Type 2 diabetes mellitus with diabetic chronic kidney disease; N18.4 Chronic kidney disease, stage 4 (severe); D17.71 Benign lipomatous neoplasm of kidney; E78.5 Hyperlipidemia, unspecified; N13.30 Unspecified hydronephrosis | CPT/HCPCS: 96127 ==

== ENCOUNTER 2025-01-26 10:54 | Outpatient (AMB) | payer MEDICARE, SELFPAY ==
[2025-01-26 10:59] VITALS: BP 124/60; PULSE 69; O2SAT 97; BMI 28.6
--- NOTE | 2025-01-26 10:59 | HO.NEPHOV_ITS ---
Vital Signs 01/26/25 10:59 Height 5 ft 8 in Weight 188 lb BMI 28.6 BP 124/60 Blood Pressure Location Rt brachial Position Sitting Pulse 69 Pulse Source Pulse Oximeter Pulse Oximetry (%) 97 Oxygen Delivery Method Room Air Intake Visit Reasons: ? on [facility] Hardening Machine Operator Helper Required: No Accompanied by: Self / Same As Patient Allergies metformin Adverse Reaction (Intermediate, Verified 01/26/25 11:01) Diarrhea HPI Comments Details: Marian was seen in follow-up of her chronic kidney disease and hypertension. Her right kidney had been hydronephrotic with 0% function by nuclear scan. She has a diabetic. She is not taking Jardiance due to cost issues . She has history of renal stones . Her last ultrasound showed echogenic circumscribed vascular mass in the upper pole of the left kidney( 1.7 cm), which has slightly increased in size. This finding is atypical for angiomyolipoma. She has no history of coronary artery disease, CVA, TIA, carotid disease or history cancer. She was on MACKENZIE inhibitor in the past which was taken off when her serum creatinine went over 2. Her last serum creatinine is 1.49 [facility] Medical History (Updated 01/26/25 @ 11:25 by Antonio Herman MD) Annual physical exam Renal mass Hypertension Colonoscopy refused Right flank pain Pelvicaliectasis Epistaxis Kidney stones Encounter for removal of nasal packing Surgical History H/O lithotripsy Family History Mother Lung cancer Social History Household Members Other:: lives alone in apartment, no work, no children, 1 sister and brother Housing: Apartment Do you presently have visiting nurse or other home services: No Alcohol intake: never Patient Tobacco Use Status: Never used Tobacco e-Cigarette/Vaping Use: Never Used service: No Current occupational status: retired Cognitive needs: No Hearing needs: No Vision needs: Yes Review of Systems Const All systems reviewed & are unremarkable except as noted in HPI and below Physical Exam Vital Signs: Last Vital Signs Pulse 69 01/26/25 10:59 BP 124/60 01/26/25 10:59 Pulse Ox 97 01/26/25 10:59 Oxygen Delivery Method Room Air 01/26/25 10:59 BMI result Body Mass Index 28.6 Const General: comfortable and no acute distress Orientation/consciousness: patient oriented x3 HEENT Head: Yes normocephalic Mouth: Normal oral and palatal mucosa present Eyes EOM: EOMs intact bilaterally Neck Neck: Yes supple Resp Auscultation: clear to auscultation bilaterally Cardio Jugular venous distension: no JVD Rate: regular rate GI Palpation (GI): Soft to palpation Auscultation: normal bowel sounds General: Yes no CVA tenderness Back/Spine/Pelvis Back: no CVA tenderness Skin General skin exam: no rashes or lesions noted Neuro General: patient oriented x3 and moves all extremities Extrem General: Yes no pedal edema Results Reviewed Nephrology Results: Hgb 13.2 g/dl (12.0-16.0) 12/14/24 WBC 7.5 X10*3/uL (4.8-10.8) 12/14/24 Plt Count 222 X10*3/uL (160-400) 12/14/24 Sodium 138 mmol/L (135-145) 12/14/24 Potassium 4.3 mmol/L (3.3-5.1) 12/14/24 Chloride 108 mmol/L (96-108) 12/14/24 Carbon Dioxide 23 mmol/L (22-29) 12/14/24 BUN 35 mg/dL (9-16) H 12/14/24 Creatinine 1.49 mg/dL (0.5-1.4) H 12/14/24 Calcium 9.4 mg/dL (8.4-10.2) 12/14/24 Urine Creatinine 120.58 mg/dL 12/14/24 Renal US 04/26/24 Assessment & Plan Assessment & Plan (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, referred to Urology by nephrology Code(s): D17.71 - Benign lipomatous neoplasm of kidney Category: Medical (2) Hydronephrosis of right kidney: Comment: non functioning kidney, nuclear scan 01/2023 Code(s): N13.30 - Unspecified hydronephrosis Category: Medical (3) Stage 3b chronic kidney disease: Code(s): N18.32 - Chronic kidney disease, stage 3b Category: Medical (4) Hypertension: Comment: Hyperkalemia on Lisinopril Code(s): I10 - Essential (primary) hypertension Category: Medical Qualifiers: Hypertension type: primary hypertension Qualified Code(s): I10 - Essential (primary) hypertension Plan 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 Her blood pressure is at goal. Her renal functions are stable. She is not on Jardiance due to cost issues. She was on lisinopril which was stopped when her serum creatinine went over 2. She is currently on amlodipine and serum creatinine has settled to baseline with maintenance of blood pressure at goal. She does not take any nonsteroidal anti-inflammatories and maintain good hydration. Her last ultrasound showed echogenic circumscribed vascular mass in the upper pole of the left kidney( 1.7 cm), which has slightly increased in size. This finding is atypical for angiomyolipoma. So I referred her back to Urology. I did not make any medication changes. Follow-up lab work ordered and answered all questions Coding Level of Care Code Est Pt Level 4 (25227) Diagnoses Angiomyolipoma of kidney D17.71 Hydronephrosis of right kidney N13.30 Stage 3b chronic kidney disease N18.32 Primary hypertension I10 Hypertension type: primary hypertension
--- OUTSIDE RECORDS SUMMARY | 2025-01-26 11:59 | XMS_ITS | Clinical Summary ---
Author Organization [facility] Address [address] [place] [address] Phone Care Team Providers Care Radio Frequency Design Engineer Name Role Phone Loretta Kulkarni MD Primary Care Provider [phone] Allergies No known active allergies Medications amLODIPine [...] Weight 83.8 kg (184 lb 12.8 oz) 023 3:05 PM EDT Height - - Body [...] this topic Insurance Medicare Medicare Care Teams Radio Frequency Design Engineer Relationship Specialty Start Date End Date Loretta Kulkarni MD [address] [place] [address] PCP - General Internal Medicine 10/14/22
== END 2025-01-26 11:28 | disposition home or self-care (01) ==
LOC: HO.HKA 10:55
PROVIDERS: PCP Internal Medicine; Visit Provider Internal Medicine Nephrology
DX: D17.71 Benign lipomatous neoplasm of kidney (principal); N13.30 Unspecified hydronephrosis; N18.32 Chronic kidney disease, stage 3b; I10 Essential (primary) hypertension
CPT/HCPCS: 99214

== ENCOUNTER → 2025-01-26 10:54 | Outpatient (BNVA) | payer MEDICARE, SELFPAY | PROVIDERS: PCP Internal Medicine; Visit Provider Internal Medicine Nephrology | DX: I12.9 Hypertensive chronic kidney disease with stage 1 through stage 4 chronic kidney disease, or unspecified chronic kidney disease (principal); N18.32 Chronic kidney disease, stage 3b; N13.30 Unspecified hydronephrosis; D17.71 Benign lipomatous neoplasm of kidney | CPT/HCPCS: 99212 ==

== ENCOUNTER 2025-05-04 10:55 | Outpatient (REF) | payer MEDICARE, SELFPAY ==
[2025-05-04 13:02] LABS: MANUAL DIFF FLAG NO
[2025-05-04 13:05] LABS: Hematocrit 38.8 % (37.0-47.0); Hemoglobin 13.0 g/dl (12.0-16.0); Imm Gran Abs Auto 0.04 X10*3/uL (0.00-0.03); Imm Gran Pct Auto 0.5 % (0.0-0.4); Lymphocytes Absolute Auto 1.7 X10*3/uL (1.2-4.9); Mean Corpuscular HGB Conc 33.5 g/dl (31.0-35.0); Mean Corpuscular Hemoglobin 30.7 pg (27.0-33.0); Mean Corpuscular Volume 91.7 fL (80.0-98.0); NRBC Abs Auto 0.000 X10*3/uL (0.0-0.012); NRBC Pct Auto 0.0 /100WBC (0.0-0.2); Platelet Count 232 X10*3/uL (160-400); Red Blood Count 4.23 X10*6/uL (4.20-5.50); White Blood Count 7.4 X10*3/uL (4.8-10.8)
[2025-05-04 13:13] LABS: Hemoglobin A1C 127.0827 umol/L; Total Hemoglobin (HGBA1C) 3365.9908 umol/L
[2025-05-04 13:26] LABS: Alanine Aminotransferase 11 U/L (0-31); Albumin Level 4.4 g/dL (3.5-5.0); Alkaline Phosphatase 85 U/L (39-117); Anion Gap 13 (12-20); Aspartate Amino Transferase 40 U/L (5-31); Blood Urea Nitrogen 39 mg/dL (9-16); Calcium 9.3 mg/dL (8.4-10.2); Carbon Dioxide 21 mmol/L (22-29); Chloride 108 mmol/L (96-108); Cholesterol 174 mg/dL (<200); Estimated Glomerular Filt Rate 32; HDL Cholesterol 39 mg/dL (>40); Potassium 4.4 mmol/L (3.3-5.1); Sodium 138 mmol/L (135-145); Total Protein 7.8 g/dL (6.5-8.0); Triglycerides 119 mg/dL (<150)
[2025-05-04 13:43] LABS: Microalbum/Creatinine Ratio Ur 36.6 ug/mg cr (<30)
== END 2025-05-04 10:56 | disposition home or self-care (01) ==
LOC: HO.HMGCLDS 10:55
PROVIDERS: PCP Internal Medicine; Visit Provider Internal Medicine
DX: I12.9 Hypertensive chronic kidney disease with stage 1 through stage 4 chronic kidney disease, or unspecified chronic kidney disease (principal); E11.22 Type 2 diabetes mellitus with diabetic chronic kidney disease; N18.4 Chronic kidney disease, stage 4 (severe)
CPT/HCPCS: 36415; 80053; 80061; 82043; 82570; 83036; 85025

== ENCOUNTER 2025-05-13 12:13 | Outpatient (AMB) | payer MEDICARE, SELFPAY ==
[2025-05-13 12:20] VITALS: BP 114/78; PULSE 69; RESP 16; O2SAT 97; BMI 28.6
--- NOTE | 2025-05-13 12:20 | MHC.PC.OV ---
Vital Signs 05/13/25 12:20 Height 5 ft 8 in Weight 188 lb BMI 28.6 BP 114/78 Blood Pressure Location Lt brachial Position Sitting Respiration 16 Pulse 69 Pulse Source Pulse Oximeter Pulse Oximetry (%) 97 Oxygen Delivery Method Room Air Intake Visit Reasons: 4 months follow up Manager Financial Required: No Accompanied by: Self / Same As Patient Allergies metformin Adverse Reaction (Intermediate, Verified 05/13/25 12:22) Diarrhea Medication List - Last Reconciled 05/13/25 by Loretta Kulkarni MD alcohol swabs (CareTouch Alcohol Prep Pad topical pads) 1 pad topical BID amlodipine 10 mg PO DAILY blood sugar diagnostic (FreeStyle Lite Strips) As directed blood-glucose meter (FreeStyle Lite Meter kit) As directed lancets (Lancets,Thin) As directed pravastatin 40 mg PO DAILY Tobacco use date assessed: 05/13/25 Fall risk assessment: No Falls in past year Last assessed Fall Risk: 05/13/25 Dental Screening Dental Screen Date: 05/13/25 Did you have a dental visit in the last 12 months?: No Did you have a dental problem in the last 6 months where you did not have access to dental care?: No Was dental information given to patient?: Patient has dentist HPI 4 months follow up HPI Details Patient presents for the follow-up on hypertension hyperlipidemia stable on current medications PFSH Medical History Hydronephrosis of right kidney CKD (chronic kidney disease) stage 4, GFR 15-29 ml/min Hyperglycemia Annual physical exam Renal mass Hypertension Colonoscopy refused Right flank pain Pelvicaliectasis Epistaxis Kidney stones Encounter for removal of nasal packing Surgical History H/O lithotripsy Family History Mother Lung cancer Social History Household Members Other:: lives alone in apartment, no work, no children, 1 sister and brother Housing: Apartment Do you presently have visiting nurse or other home services: No Alcohol intake: never Patient Tobacco Use Status: Never used Tobacco e-Cigarette/Vaping Use: Never Used service: No Current occupational status: retired Cognitive needs: No Hearing needs: No Vision needs: Yes Questionnaire PHQ-9 Over the last 2 weeks, how often have you been bothered by any of the following problems? 1. Little interest or pleasure in doing things: not at all 2. Feeling down, depressed, or hopeless: not at all 3. Trouble falling or staying asleep, or sleeping too much: not at all 4. Feeling tired or having little energy: not at all 5. Poor appetite or overeating: not at all 6. Feeling bad about yourself - or that you are a failure or have let yourself or your family down: not at all 7. Trouble concentrating on things, such as reading the newspaper or watching television: not at all 8. Moving or speaking so slowly that other people could have noticed. Or the opposite - being so fidgety or restless that you have been moving around a lot more than usual: not at all 9. Thoughts that you would be better off or of hurting yourself in some way: not at all Total score: 0 Depression Screening Interpretation: Negative Depression Screening Done: Yes 46471 - PHQ-9 Billing: Yes Source: Developed by Drs. Jagdish Bunn, Shawnee Bwoers, Unruly Wright and colleagues, with an educational radha from [employer]. Thrive Questionnaire Date Thrive assessed: 10/27/23 SHORTY-7 AMB Questionnaire SHORTY-7 Date SHORTY - 7 assessed: 05/13/25 Feeling nervous, anxious, or on edge: 0 = Not at all Not being able to stop or control worryin = Not at all Worrying too much about different things: 0 = Not at all Trouble relaxin = Not at all Being so restless that it is hard to sit still: 0 = Not at all Becoming easily annoyed or irritable: 0 = Not at all Feeling afraid as if something awful might happen: 0 = Not at all Total SHORTY-7 score (0-4 normal; 5-9 mild; 10-14 moderate; 15-21 severe): 0 Source: Developed by Drs. Jagdish Bunn, Unruly Raymond and colleagues, with an educational radha from [employer]. SHORTY-7 Assessment Billing SHORTY-7 Assessment Tool: SHORTY-7 Assessment 15461 Review of Systems Const All systems reviewed & are unremarkable except as noted in HPI and below ENT Reports no additional complaints Card Reports no additional complaints Resp Reports no additional complaints GI Reports no additional complaints Reports no additional complaints Physical exam (Primary Care) Vital Signs: Last Vital Signs Pulse 69 05/13/25 12:20 Resp 16 05/13/25 12:20 BP 114/78 05/13/25 12:20 Pulse Ox 97 05/13/25 12:20 Oxygen Delivery Method Room Air 05/13/25 12:20 BMI result Body Mass Index 28.6 Tobacco/Smoking Status: Tobacco use Status Tobacco use date assessed 05/13/25 05/13/25 12:26 Patient Tobacco Use Status Never used Tobacco 05/13/25 12:26 e-Cigarette/Vaping Use Never Used 05/13/25 12:26 PHQ-9: PHQ-9 Score PHQ-9: Total score 0 05/13/25 13:14 Depression Screening Interpretation: Negative Thrive Assessment: Date of Thrive Assessment Date Thrive assessed 10/27/23 05/13/25 12:26 Const General: no acute distress HENMT Head: Yes normal to inspection Eyes General: appearance normal, both eyes and all related structures Resp Effort & Inspection: normal respiratory effort Auscultation: clear to auscultation bilaterally Cardio Rhythm: regular rhythm Heart sounds: S1 normal heart sound present and S2 normal heart sound present GI Inspection: Yes normal to inspection Palpation (GI): Soft to palpation Percussion: Yes normal to percussion Auscultation: normal bowel sounds Coding Level of Care Code Est Pt Level 4 (68079) Diagnoses Primary hypertension I10 Hypertension type: primary hypertension Hyperlipidemia E78.5 Hyperglycemia R73.9 CKD (chronic kidney disease) stage 4, GFR 15-29 ml/min N18.4 Additional Codes SHORTY-7 Assessment Billing - SHORTY-7 Assessment Tool: SHORTY-7 Assessment 46249 ([id number]) PHQ-9 - 87268 - PHQ-9 Billing: Yes ([id number]) Assessment & Plan Assessment & Plan (1) Hypertension: Comment: Hyperkalemia on Lisinopril Code(s): I10 - Essential (primary) hypertension Category: Medical Qualifiers: Hypertension type: primary hypertension Qualified Code(s): I10 - Essential (primary) hypertension Plan: Continue amlodipine (2) Hyperlipidemia: Code(s): E78.5 - Hyperlipidemia, unspecified Category: Medical Plan: Continue statin (3) Hyperglycemia: Comment: A1c is 5.6, May 2025 Code(s): R73.9 - Hyperglycemia, unspecified Category: Medical Plan: Continue ADA diet (4) CKD (chronic kidney disease) stage 4, GFR 15-29 ml/min: Comment: Renal scan 02/21 right kidney no perfusion of function, left kidney moderately impaired perfusion and function no obstruction, renal ultrasound severe hydronephrosis on the right, 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 Code(s): N18.4 - Chronic kidney disease, stage 4 (severe) Category: Medical Plan: Established with Nephrology, avoid nephrotoxins monitor renal function Orders: Orders Comprehensive [place]. Panel Fast 7 Months I10 - Essential (primary) hypertension, N18.4 - Chronic kidney disease, stage 4 (severe), R73.9 - Hyperglycemia, unspecified Complete Blood Count Auto Diff 7 Months I10 - Essential (primary) hypertension, N18.4 - Chronic kidney disease, stage 4 (severe), R73.9 - Hyperglycemia, unspecified UA w Microscopic 7 Months I10 - Essential (primary) hypertension, N18.4 - Chronic kidney disease, stage 4 (severe), R73.9 - Hyperglycemia, unspecified Lipid Panel 7 Months I10 - Essential (primary) hypertension, N18.4 - Chronic kidney disease, stage 4 (severe), R73.9 - Hyperglycemia, unspecified Hemoglobin A1c 7 Months I10 - Essential (primary) hypertension, N18.4 - Chronic kidney disease, stage 4 (severe), R73.9 - Hyperglycemia, unspecified Microalbumin, Random (w Creat) 7 Months I10 - Essential (primary) hypertension, N18.4 - Chronic kidney disease, stage 4 (severe), R73.9 - Hyperglycemia, unspecified TSH reflex Free T4 7 Months I10 - Essential (primary) hypertension, N18.4 - Chronic kidney disease, stage 4 (severe), R73.9 - Hyperglycemia, unspecified Vitamin D 25-OH Total 7 Months I10 - Essential (primary) hypertension, N18.4 - Chronic kidney disease, stage 4 (severe), R73.9 - Hyperglycemia, unspecified Medications: Refilled pravastatin 40 mg PO DAILY 90 tabs 3RF amlodipine 10 mg PO DAILY 90 tabs 3RF
== END 2025-05-13 16:22 | disposition home or self-care (01) ==
LOC: HO.HMCC 12:13
PROVIDERS: PCP Internal Medicine; Visit Provider Internal Medicine
DX: I12.9 Hypertensive chronic kidney disease with stage 1 through stage 4 chronic kidney disease, or unspecified chronic kidney disease (principal); E78.5 Hyperlipidemia, unspecified; R73.9 Hyperglycemia, unspecified; N18.4 Chronic kidney disease, stage 4 (severe)

== ENCOUNTER → 2025-05-13 12:13 | Outpatient (BNVA) | payer MEDICARE, SELFPAY | PROVIDERS: PCP Internal Medicine; Visit Provider Internal Medicine | DX: I12.9 Hypertensive chronic kidney disease with stage 1 through stage 4 chronic kidney disease, or unspecified chronic kidney disease (principal); E78.5 Hyperlipidemia, unspecified; R73.9 Hyperglycemia, unspecified; N18.4 Chronic kidney disease, stage 4 (severe) | CPT/HCPCS: 96127; 99212 ==

== ENCOUNTER 2025-07-26 11:01 | Outpatient (REF) | payer MEDICARE, SELFPAY ==
--- OUTSIDE RECORDS SUMMARY | 2025-07-26 14:30 | XMS_ITS | Clinical Summary ---
Author Organization [facility] Address [address] [place] [address] Phone Care Team Providers Care Director Of Casino Name Role Phone Loretta Kulkarni MD Primary Care Provider [phone] Allergies No known active allergies Medications amLODIPine [...] Colorectal Cancer Screening: Sigmoidoscopy 2004 Influenza Vaccine (#1) 2025 Hepatitis B Vaccine Aged Out No longe r eligible based on patient's age to complete this topic Insurance Medicare Medicare Care Teams Director Of Casino Relationship Specialty Start Date End Date Loretta Kulkarni MD [address] [place] [address] PCP - General Internal Medicine 10/14/22
[2025-07-26 14:45] LABS: Anion Gap 13 (12-20); Blood Urea Nitrogen 41 mg/dL (9-16); Carbon Dioxide 24 mmol/L (22-29); Chloride 105 mmol/L (96-108); Estimated Glomerular Filt Rate 31; Potassium 4.6 mmol/L (3.3-5.1); Sodium 137 mmol/L (135-145)
== END 2025-07-26 11:02 | disposition home or self-care (01) ==
LOC: HO.HMGCLDS 11:01
PROVIDERS: PCP Internal Medicine; Visit Provider Internal Medicine Nephrology
DX: N18.32 Chronic kidney disease, stage 3b (principal)
CPT/HCPCS: 36415; 80051; 82565; 84520